=== PATIENT | male | born 1960 | race Caucasian/White ===

== ENCOUNTER 2019-10-30 18:04 | Observation (INO) | payer OTHER ==
[2019-10-30] MEDS ORDERED: IPRATROPIUM BROM 0.5MG/2.5ML ONE (18:33)
[2019-10-30] MEDS ORDERED: ALBUTEROL 2.5 MG/3 ML NEB SOL ONE (18:33)
[2019-10-30] MEDS ORDERED: METHYLPREDNISOLONE 125 MG INJ ONE (18:33)
--- NOTE | 2019-10-30 18:48 | RAD REPORT ---
EXAM DESCRIPTION: RAD - Chest Single View - 10/30/2019 6:43 pm CLINICAL HISTORY: COPD Chest pain. COMPARISON: No comparisons FINDINGS: Portable technique limits examination quality. Mild interstitial pulmonary edema is seen. The heart is moderately enlarged. No displaced fractures. IMPRESSION: Mild CHF.
[2019-10-30 18:49] LABS: Basophils % 0.2 % (0-1.3); Hematocrit 52.4 % (39.6-49.0); Lymphocytes % 6.1 % (15.3-44.8); MPV 8.1 fL (7.6-11.3); Protime INR 0.94; RBC Red Blood Cell Count 5.89 M/uL (4.33-5.43)
[2019-10-30 19:03] LABS: ALT/SGPT 37 U/L (12-78); AST/SGOT 17 U/L (15-37); Albumin 3.7 g/dL (3.4-5.0); Alkaline Phosphatase 69 U/L (45-117); BUN Blood Urea Nitrogen 17 mg/dL (7-18); Bicarbonate 27 mmol/L (21-32); Bilirubin Direct < 0.1 mg/dL (0-0.2); Bilirubin Total 0.3 mg/dL (0.2-1.0); CKMB Creatine Kinase MB 3.1 ng/mL (0.3-3.6); Creatine Phosphokinase 64 U/L (39-308); Glucose Level 106 mg/dL (74-106); Lipase 114 U/L (73-393); Magnesium 2.1 mg/dL (1.8-2.4); NT PRO-BNP 3020 pg/mL (<125); Potassium 4.2 mmol/L (3.5-5.1); Protein, Total 7.9 g/dL (6.4-8.2); Sodium Level 135 mmol/L (136-145); Troponin (Emerg Dept Use Only) 0.07 ng/mL (0.0-0.045)
[2019-10-30] MEDS ORDERED: FUROSEMIDE 40 MG/4 ML VIAL ONE (19:40)
[2019-10-30] MEDS ORDERED: ASPIRIN 81 MG CHEWABLE TABLET ONE (19:40)
--- NOTE | 2019-10-30 19:41 | ER ---
Nurse's Notes [facility] Name: Maurice Cid JR. Age: 59 yrs Sex: Male : 1960 Arrival Date: 10/30/2019 Time: 18:[address] Private MD: Diagnosis: Acute systolic (congestive) heart failure;Chronic obstructive pulmonary disease with (acute) exacerbation Presentation: 10/29 18:08 Chief complaint: Patient states: SOB and CP started today. COPD flare-up most likely, ll1 meds. at home didn't help. Coronavirus screen: Patient denies a cough. Patient reports shortness of breath or difficulty breathing. Patient denies measured and/or subjective temperature greater than 100.4F prior to today's visit. Patient denies travel on a cruise ship or to a country the [facility] currently lists as an affected area. Patient denies contact with known and/or suspected case of COVID-19. Ebola Screen: Patient denies travel to an Ebola-affected area in the 21 days before illness onset. Initial Sepsis Screen: Does the patient meet any 2 criteria? RR > 20 per min. HR > 90 bpm. Yes Does the patient have a suspected source of infection?. Risk Assessment: Do you want to hurt yourself or someone else? Patient reports no desire to harm self or others. Onset of symptoms was October 30, 2019. 18:08 Method Of Arrival: Wheelchair ll1 18:08 Acuity: EV 2 ll1 Triage Assessment: 19:10 Respiratory: Reports shortness of breath Onset: The symptoms/episode began/occurred rr5 today, Historical: - Allergies: 18:10 No Known Allergies; ll1 - PMHx: 18:10 COPD; asbestosis; Hypertension; ll1 - PSHx: 18:10 colon CA; ll1 - Immunization history:: Adult Immunizations up to date. - Social history:: Smoking status: Patient reports the use of cigarette tobacco products, smokes one-half pack cigarettes per day, Patient/guardian denies using alcohol, street drugs. Screenin:20 Abuse screen: Denies threats or abuse. Nutritional screening: No deficits noted. em Tuberculosis screening: No symptoms or risk factors identified. Fall Risk None identified. Assessment: 18:17 Reassessment: CODE SEPSIS CALLED. hb 18:20 General: Appears uncomfortable, Behavior is cooperative, restless. Pain: Complains of em pain in chest Pain currently is 3 out of 10 on a pain scale. Neuro: Level of Consciousness is awake, alert, obeys commands, Oriented to person, place, time, situation, Appropriate for age. Cardiovascular: Capillary refill is > 3 seconds Patient's skin is warm and dry. Rhythm is sinus tachycardia. Respiratory: Airway is patent Respiratory effort is labored, Respiratory pattern is regular, tachypnea Breath sounds are diminished bilaterally. Breath sounds with wheezes bilaterally. GI: Abdomen is obese. Derm: Skin is intact, Skin is clammy, Skin is pink, Skin temperature is warm. Musculoskeletal: Capillary refill < 3 seconds, Range of motion: intact in all extremities. 19:15 General: Appears uncomfortable, mild distress. Behavior is calm, cooperative, rr5 appropriate for age, awaiting for results.. Pain: Complains of pain in chest. Neuro: Level of Consciousness is awake, alert, obeys commands, Oriented to person, place, time, situation. 19:15 Cardiovascular: Capillary refill < 3 seconds Patient's skin is warm and dry. rr5 Respiratory: Airway is patent Respiratory effort is even, labored, Respiratory pattern is regular, tachypnea Breath sounds with wheezes bilaterally. GI: Abdomen is obese. : No signs and/or symptoms were reported regarding the genitourinary system. EENT: No signs and/or symptoms were reported regarding the EENT system. Derm: Skin is intact, is healthy with good turgor, Skin temperature is warm. Musculoskeletal: Capillary refill < 3 seconds, Range of motion: intact in all extremities. 19:45 Reassessment: Patient appears in no apparent distress at this time. Patient is alert, rr5 oriented x 3, equal unlabored respirations, skin warm/dry/pink. reassess by ED provider advised for admission and agreed for the plan of care. 20:30 Reassessment: Patient appears in no apparent distress at this time. Patient and/or rr5 family updated on plan of care and expected duration. Pain level reassessed. Patient is alert, oriented x 3, equal unlabored respirations, skin warm/dry/pink. awaiting for room assignment. 21:32 Reassessment: Patient appears in no apparent distress at this time. Patient is alert, rr5 oriented x 3, equal unlabored respirations, skin warm/dry/pink. transferred to room 413. awake alert no complaints made. Patient states feeling better. Patient states symptoms have improved. Vital Signs: 18:08 BP 156 / 117; Pulse 105; Resp 26; Pulse Ox 94% ; Pain 5/10; ll1 18:33 Temp 98.6(O); em 19:22 BP 160 / 85; Pulse 108; Resp 27; Temp 98.5; Pulse Ox 95% on R/A; rr5 19:39 Weight 147.42 kg; rr5 20:30 BP 155 / 101; Pulse 90; Resp 28; Pulse Ox 96% on R/A; rr5 21:30 BP 138 / 97; Pulse 95; Resp 25; Temp 98.7; Pulse Ox 95% on R/A; rr5 ED Course: 18:05 Patient arrived in ED. bp1 18:09 Triage completed. ll1 18:11 Arm band placed on Patient placed in an exam room, on a stretcher. ll1 18:15 Matteo Raza MD is Attending Physician. mh7 18:16 Contreras Mercado, RN is Primary Nurse. em 18:20 Patient has correct armband on for positive identification. Bed in low position. Call em light in reach. air sampling and monitoring on. Pulse ox on. NIBP on. 18:39 EKG done, by ED staff, reviewed by Matteo Raza MD. jb1 18:42 Chest Single View XRAY In Process Unspecified. EDMS 19:05 Inserted saline lock: 20 gauge in right antecubital area, using aseptic technique. rr5 ,using aseptic technique. received in AM shift Blood collected. 19:16 Notified ED physician of a critical lab result(s). D-dimer 625. lp1 19:37 Delia Banerjee MD is Hospitalizing Provider. mh7 20:01 CT Chest For PE Angio In Process Unspecified. EDMS 20:30 Patient moved back from CT. mw3 21:16 No provider procedures requiring assistance completed. Patient admitted, IV remains in rr5 place. intact, No redness/swelling at site. Administered Medications: 18:32 Drug: DuoNeb (3:1) (2.5 mg - 0.5 mg) 3 ml Route: Nebulizer; hb 19:35 Follow up: Response: No adverse reaction rr5 18:32 Drug: SOLU-Medrol 125 mg Route: IVP; Site: right antecubital; hb 19:35 Follow up: Response: No adverse reaction rr5 19:38 Drug: Lasix 40 mg Route: IVP; Site: right antecubital; rr5 20:30 Follow up: Response: No adverse reaction; Other; post lasix output 1100 ml rr5 19:38 Drug: Aspirin 325 mg Route: PO; rr5 20:30 Follow up: Response: No adverse reaction rr5 Intake: 21:33 PO: 0ml; Total: 0ml. rr5 Output: 20:20 Urine: 1100ml (Voided); Total: 1100ml. rr5 21:33 Urine: 1200ml (Voided); Total: 2300ml. rr5 Outcome: 19:38 Decision to Hospitalize by Provider. [facility] 21:16 Admitted to Tele accompanied by nurse, via stretcher, room 413, with chart, Report rr5 called to yariel 21:16 Condition: stable 21:16 Instructed on the need for admit. 21:35 Patient left the ED. rr5 Signatures: Dispatcher [employer] Lestre Goel jbContreras Sanchez, RN RN em Sangeeta Andersen RN RN lp1 Marjorie Patel RN RN Yanci Edwards mw3 Moses Granados RN RN rr5 Hali White, SUSAN RN ll1 Crystal Garcia Maurice, MD MD 7 Corrections: (The following items were deleted from the chart) 18:12 18:08 Acuity: EV 3 ll1 ll1
--- NOTE | 2019-10-30 19:41 | EDPHYS ---
Physician Documentation [facility] Name: Maurice Cid JR. Age: 59 yrs Sex: Male : 1960 Arrival Date: 10/30/2019 Time: 18:[address] Private MD: ED Physician Matteo Raza HPI: 10/29 19:00 This 59 yrs old Male presents to ER via Wheelchair with complaints of mh7 Shortness Of Breath. 19:01 The patient has shortness of breath at rest. Onset: The symptoms/episode began/occurred mh7 last night. Duration: The symptoms are continuous, and are unchanged since they started. The patient's shortness of breath is aggravated by coughing, is alleviated by nebulizer treatment. Associated signs and symptoms: Pertinent positives: non-productive cough, Pertinent negatives: chest pain, productive cough, diaphoresis, dizziness, fever, hemoptysis, loss of consciousness, nausea, numbness in extremities, visual changes, vomiting. Severity of symptoms: At their worst the symptoms were moderate last night, in the emergency department the symptoms have improved mildly. The patient has experienced similar episodes in the past, chronically, with the last episode occurring last month. Historical: - Allergies: 18:10 No Known Allergies; ll1 - PMHx: 18:10 COPD; asbestosis; Hypertension; ll1 - PSHx: 18:10 colon CA; ll1 - Immunization history:: Adult Immunizations up to date. - Social history:: Smoking status: Patient reports the use of cigarette tobacco products, smokes one-half pack cigarettes per day, Patient/guardian denies using alcohol, street drugs. ROS: 19:01 Constitutional: Negative for fever, chills, and weight loss, Eyes: Negative for injury, mh7 pain, redness, and discharge, ENT: Negative for injury, pain, and discharge, Neck: Negative for injury, pain, and swelling, Cardiovascular: Negative for chest pain, palpitations, and edema, Abdomen/GI: Negative for abdominal pain, nausea, vomiting, diarrhea, and constipation, Back: Negative for injury and pain, : Negative for injury, bleeding, discharge, and swelling, MS/Extremity: Negative for injury and deformity, Skin: Negative for injury, rash, and discoloration, Neuro: Negative for headache, weakness, numbness, tingling, and seizure, Psych: Negative for depression, anxiety, suicide ideation, homicidal ideation, and hallucinations, Allergy/Immunology: Negative for hives, rash, and allergies, Endocrine: Negative for neck swelling, polydipsia, polyuria, polyphagia, and marked weight changes, Hematologic/Lymphatic: Negative for swollen nodes, abnormal bleeding, and unusual bruising. Exam: 19:01 Constitutional: This is a well developed, well nourished patient who is awake, alert, mh7 and in no acute distress. Head/Face: Normocephalic, atraumatic. Eyes: Pupils equal round and reactive to light, extra-ocular motions intact. Lids and lashes normal. Conjunctiva and sclera are non-icteric and not injected. Cornea within normal limits. Periorbital areas with no swelling, redness, or edema. Neck: Trachea midline, no thyromegaly or masses palpated, and no cervical lymphadenopathy. Supple, full range of motion without nuchal rigidity, or vertebral point tenderness. No Meningismus. Chest/axilla: Normal chest wall appearance and motion. Nontender with no deformity. No lesions are appreciated. Cardiovascular: Regular rate and rhythm with a normal S1 and S2. No gallops, murmurs, or rubs. Normal PMI, no JVD. No pulse deficits. 19:01 Abdomen/GI: Soft, non-tender, with normal bowel sounds. No distension or tympany. No guarding or rebound. No evidence of tenderness throughout. Back: No spinal tenderness. No costovertebral tenderness. Full range of motion. Skin: Warm, dry with normal turgor. Normal color with no rashes, no lesions, and no evidence of cellulitis. MS/ Extremity: Pulses equal, no cyanosis. Neurovascular intact. Full, normal range of motion. Neuro: Awake and alert, GCS 15, oriented to person, place, time, and situation. Cranial nerves II-XII grossly intact. Motor strength 5/5 in all extremities. Sensory grossly intact. Cerebellar exam normal. Normal gait. Psych: Awake, alert, with orientation to person, place and time. Behavior, mood, and affect are within normal limits. 19:01 Respiratory: mild respiratory distress is noted, Respirations: prolonged exhalation, that is mild, Breath sounds: rhonchi, that are moderate, are scattered, wheezing: expiratory that is moderate, is heard diffusely. Vital Signs: 18:08 BP 156 / 117; Pulse 105; Resp 26; Pulse Ox 94% ; Pain 5/10; ll1 18:33 Temp 98.6(O); em 19:22 BP 160 / 85; Pulse 108; Resp 27; Temp 98.5; Pulse Ox 95% on R/A; rr5 19:39 Weight 147.42 kg; rr5 20:30 BP 155 / 101; Pulse 90; Resp 28; Pulse Ox 96% on R/A; rr5 21:30 BP 138 / 97; Pulse 95; Resp 25; Temp 98.7; Pulse Ox 95% on R/A; rr5 MDM: 18:20 Patient medically screened. [facility] 19:35 Differential diagnosis: Anemia asthma, CHF exacerbation, Chronic Obstructive Pulmonary 7 Disease Myocardial Infarction pneumonia, pulmonary edema, Pulmonary Embolism Unstable Angina. Data reviewed: vital signs, nurses notes, lab test result(s), cardiac enzymes, CBC, electrolytes, EKG, radiologic studies, plain films. Data interpreted: cardiac monitor: rate is 105 beats/min, rhythm is sinus tachycardia, Interpretation: tachycardia, Pulse oximetry: on room air is 94 %. Interpretation: hypoxia. 10/30 07:49 Counseling: I had a detailed discussion with the patient and/or guardian regarding: the [facility] historical points, exam findings, and any diagnostic results supporting the discharge/admit diagnosis, the presence of at least one elevated blood pressure reading (>120/80) during this emergency department visit, lab results, radiology results, the need for further work-up and treatment in the hospital. Medication response: albuterol nebulizer treatment(s) markedly relieved the patient's wheezing. Response to treatment: the patient's symptoms have markedly improved after treatment. 10/29 18:24 Order name: Blood Culture Adult (2) [facility] 10/29 18:24 Order name: BMP; Complete Time: 19:20 [facility] 10/29 18:24 Order name: CBC with Diff; Complete Time: 19:20 [facility] 10/29 18:24 Order name: Ckmb; Complete Time: 19:20 [facility] 10/29 18:24 Order name: CPK; Complete Time: 19:20 [facility] 10/29 18:24 Order name: D-Dimer; Complete Time: 19:20 [facility] 10/29 18:24 Order name: Hepatic Function; Complete Time: 19:20 7 10/29 18:24 Order name: Lipase; Complete Time: 19:20 7 10/29 18:24 Order name: Magnesium; Complete Time: 19:20 7 10/29 18:24 Order name: NT PRO-BNP; Complete Time: 19:20 7 10/29 18:24 Order name: PT-INR; Complete Time: 19:20 7 10/29 18:24 Order name: Ptt, Activated; Complete Time: 19:20 7 10/29 18:24 Order name: Troponin (emerg Dept Use Only); Complete Time: 19:20 7 10/29 18:24 Order name: Chest Single View XRAY; Complete Time: 19:20 7 10/29 19:23 Order name: CT Chest For PE Angio; Complete Time: 07:49 7 10/29 20:26 Order name: Echo with Doppler [facility] 10/29 20:26 Order name: CBC with Automated Diff EDMS 10/29 20:26 Order name: CBC with Automated Diff; Complete Time: 07:49 EDMS 10/29 20:26 Order name: Comprehensive Metabolic Panel EDMS 10/29 20:26 Order name: Comprehensive Metabolic Panel; Complete Time: 07:49 EDMS 10/29 20:26 Order name: Lipid Profile EDMS 10/29 20:26 Order name: Lipid Profile; Complete Time: 07:49 EDMS 10/29 20:26 Order name: Magnesium EDMS 10/29 20:26 Order name: Magnesium; Complete Time: 07:49 EDMS 10/29 20:26 Order name: NT PRO-BNP EDMS 10/29 20:26 Order name: NT PRO-BNP; Complete Time: 07:49 EDMS 10/29 20:26 Order name: Phosphorus EDMS 10/29 20:26 Order name: Phosphorus; Complete Time: 07:49 EDMS 10/29 20:45 Order name: CORONAVIRUS; Complete Time: 07:49 EDMS 10/29 18:24 Order name: EKG; Complete Time: 18:25 7 10/29 18:24 Order name: Cardiac monitoring; Complete Time: 18:34 7 10/29 18:24 Order name: EKG - Nurse/Tech; Complete Time: 18:35 7 10/29 18:24 Order name: IV Saline Lock; Complete Time: 18:34 7 10/29 18:24 Order name: Labs collected and sent; Complete Time: 18:34 7 10/29 18:24 Order name: O2 Per Protocol; Complete Time: 18:34 7 10/29 18:24 Order name: O2 Sat Monitoring; Complete Time: 18:34 [facility] 10/29 19:56 Order name: Droplet/Contact Precautions; Complete Time: 19:58 mw 10/29 20:26 Order name: CONS Physician Consult [facility]NY 10/29 20:26 Order name: Heart Healthy EDMS Administered Medications: 10/29 18:32 Drug: DuoNeb (3:1) (2.5 mg - 0.5 mg) 3 ml Route: Nebulizer; hb 19:35 Follow up: Response: No adverse reaction rr5 18:32 Drug: SOLU-Medrol 125 mg Route: IVP; Site: right antecubital; hb 19:35 Follow up: Response: No adverse reaction rr5 19:38 Drug: Lasix 40 mg Route: IVP; Site: right antecubital; rr5 20:30 Follow up: Response: No adverse reaction; Other; post lasix output 1100 ml rr5 19:38 Drug: Aspirin 325 mg Route: PO; rr5 20:30 Follow up: Response: No adverse reaction rr5 Disposition: 10/30/19 19:38 Hospitalization ordered by Delia Banerjee for Inpatient Admission. Preliminary diagnosis are Acute systolic (congestive) heart failure, Chronic obstructive pulmonary disease with (acute) exacerbation. - Bed requested for Telemetry/MedSurg (Inpatient). - Status is Inpatient Admission. rr5 - Condition is Stable. - Problem is new. - Symptoms have improved. Signatures: Dispatcher [employer] [facility] Suzy Muller RN RN Marjorie Patel RN RN Moses Granados RN RN rr5 Hali White RN RN ll1 Matteo Raza MD MD 7 Corrections: (The following items were deleted from the chart) 20:27 19:38 Hospitalization Ordered by Delia Banerjee MD for Inpatient Admission. Preliminary diagnosis is Acute systolic (congestive) heart failure; Chronic obstructive pulmonary disease with (acute) exacerbation. Bed requested for Telemetry/MedSurg (Inpatient). Status is Inpatient Admission. Condition is Stable. Problem is new. Symptoms have improved. mh7 21:35 20:27 10/30/2019 19:38 Hospitalization Ordered by Delia Banerjee MD for Inpatient rr5 Admission. Preliminary diagnosis is Acute systolic (congestive) heart failure; Chronic obstructive pulmonary disease with (acute) exacerbation. Bed requested for Telemetry/MedSurg (Inpatient). Status is Inpatient Admission. Condition is Stable. Problem is new. Symptoms have improved. mw
--- NOTE | 2019-10-30 20:16 | RAD REPORT ---
EXAM DESCRIPTION: CT - Chest For Pe Angio - 10/30/2019 8:00 pm CLINICAL HISTORY: Chest pain. SOB COMPARISON: Chest Single View dated 10/30/2019 TECHNIQUE: CT angiogram of the pulmonary arteries was performed with MIP. All CT scans are performed using dose optimization technique as appropriate and may include automated exposure control or mA/KV adjustment according to patient size. FINDINGS: No evidence of pulmonary thromboembolism. No acute aortic finding demonstrated. Minimal interstitial pulmonary edema suspected. Linear atelectasis is present in both lung bases. Mil d underlying COPD is suspected. No significant pericardial or pleural fluid. No concerning bony finding. Cholelithiasis. IMPRESSION: No evidence of pulmonary thromboembolism. Cholelithiasis.
[2019-10-30] MEDS ORDERED: ACETAMINOPHEN 500 MG TAB PO PRN (20:18)
[2019-10-30] MEDS ORDERED: ONDANSETRON 4 MG/2 ML VIAL IV PRN (20:18)
[2019-10-30] MEDS: POTASSIUM 25 MEQ EFFERV TAB PO SCH (21:00)
[2019-10-30] MEDS: METOPROLOL TAR 50 MG TAB PO SCH (22:36)
[2019-10-30 22:57] VITALS: BMI 43.3
[2019-10-31] MEDS: FUROSEMIDE 40 MG/4 ML VIAL IV SCH ×2 (01:45→08:53)
[2019-10-31 05:58] LABS: Absolute Lymphocytes (CBC) 0.7 K/uL (0.7-4.9); Basophils % 0.2 % (0-1.3); Hematocrit 51.7 % (39.6-49.0); Lymphocytes % 4.9 % (15.3-44.8); MPV 8.2 fL (7.6-11.3); RBC Red Blood Cell Count 5.89 M/uL (4.33-5.43)
[2019-10-31 06:26] LABS: Albumin 3.5 g/dL (3.4-5.0); Bilirubin Total 0.5 mg/dL (0.2-1.0); Magnesium 2.2 mg/dL (1.8-2.4); Phosphorus 3.7 mg/dL (2.5-4.9); Potassium 4.4 mmol/L (3.5-5.1); Protein, Total 7.7 g/dL (6.4-8.2)
[2019-10-31 07:09] LABS: Platelet Estimate ADEQ; Urine White Blood Cell Casts OK
[2019-10-31 07:10] LABS: Blood Morphology Comment NOT SEEN (NOT SEEN)
[2019-10-31] MEDS: METOPROLOL TAR 50 MG TAB PO SCH (08:51)
[2019-10-31] MEDS: POTASSIUM 25 MEQ EFFERV TAB PO SCH (08:52)
[2019-10-31] MEDS ORDERED: ASPIRIN EC 81 MG TAB PO SCH (09:00)
[2019-10-31] MEDS ORDERED: CLOPIDOGREL 75 MG TABLET PO SCH (09:00)
[2019-10-31] MEDS ORDERED: ENOXAPARIN 40 MG/0.4 ML SQ SCH (09:00)
--- NOTE | 2019-10-31 09:27 | P.HP ---
Certification for Inpatient Patient admitted to: Inpatient With expected LOS: >2 Midnights Patient will require the following post-hospital care: None Practitioner: I am a practitioner with admitting privileges, knowledge of patient current condition, hospital course, and medical plan of care. Services: Services provided to patient in accordance with Admission requirements found in Title 42 Section 412.3 of the Code of Federal Regulations Patient History Date of Service: 10/30/19 Reason for admission: Congestive heart failure History of Present Illness: Patient is a 59-year-old gentleman who came to the hospital with shortness of breath. Patient was found have congestive heart failure exacerbation. Patient has significant pulmonary edema and is morbidly obese. Patient was given diuresis and symptoms are improving. Will continue with gentle diuresing. Patient does not have echocardiogram on file. Will get Cardiology consultation. Patient will need further cardiac testing at this time. Continue with cardiac medications as well. Patient also needs to enter into a bariatric program and start weight loss. Will get additional lab testing including BNP levels. Strict blood pressure control. Allergies No Known Allergies Allergy (Unverified 10/30/19 20:59) Home Medications: Albuterol Sulfate [Proair Respiclick] 1 puff IH Q6HP PRN 10/30/19 Allopurinol 300 mg PO BEDTIME 10/30/19 Amlodipine [Norvasc] 10 mg PO DAILY 10/30/19 Budesonide/Formoterol Fumarate [Symbicort 160-4.5 Mcg Inhaler] 2 puff IH DAILY 10/30/19 Cholecalciferol (Vitamin D3) [Vitamin D 400 IU TAB] 400 unit PO DAILY 10/30/19 Naproxen 250 mg PO BID 10/30/19 Tamsulosin [Flomax] 0.4 mg PO BEDTIME 10/30/19 Tiotropium [Spiriva Handihaler] 18 mcg IH DAILY 10/30/19 - Past Medical/Surgical History Has patient received pneumonia vaccine in the past: Yes Diabetic: No -: hypertension -: COPD -: Asbestos -: Colon CA -: Colon resection -: colostomy reversal -: bilateral knee surgery -: right ankle sx - Family History Father Family History: Reviewed- Non-Contributory - Social History Smoking Status: Heavy Tobacco smoker (>10 cigarettes/day) Alcohol use: No CD- Drugs: No Caffeine use: Yes Place of Residence: Home Review of Systems 10-point ROS is otherwise unremarkable Physical Examination - Vital Signs Temperature: 96.0 F Blood Pressure: 137/77 Pulse: 66 Respirations: 20 Pulse Ox (%): 94 - Physical Exam General: Alert, In no apparent distress, Oriented x3 HEENT: Atraumatic, PERRLA, Mucous membr. moist/pink, EOMI, Sclerae nonicteric Neck: Supple, 2+ carotid pulse no bruit, No LAD, Without JVD or thyroid abnormality Respiratory: Diminished, Crackles/rales Cardiovascular: Regular rate/rhythm, Normal S1 S2, Systolic murmur Gastrointestinal: Normal bowel sounds, Soft and benign, Non-distended, No tenderness Musculoskeletal: No clubbing, No tenderness, Swelling Integumentary: No rashes Neurological: Normal gait, Normal speech, Normal strength at 5/5 x4 extr, Normal tone, Sensation intact, Cranial nerves 3-12 intact, Normal affect Lymphatics: No axilla or inguinal lymphadenopathy - Studies Laboratory Data (last 24 hrs) 10/30/19 18:30: PT 11.1, INR 0.94, APTT 30.5 10/30/19 18:30: WBC 16.6 H, Hgb 17.1, Hct 52.4 H, Plt Count 296 10/30/19 18:30: Sodium 135 L, Potassium 4.2, BUN 17, Creatinine 1.02, Glucose 106, Magnesium 2.1, Total Bilirubin 0.3, AST 17, ALT 37, Alkaline Phosphatase 69, Lipase 114 Microbiology Data (last 24 hrs): 10/30/19 20:14 Nasopharnyx Coronavirus COVID-19 PCR - Final Assessment & Plan - Problems (Diagnosis) (1) Acute exacerbation of CHF (congestive heart failure) Current Visit: Yes Status: Acute (2) Lower extremity edema Current Visit: Yes Status: Acute (3) Dyspnea on exertion Current Visit: Yes Status: Acute (4) Cholelithiasis Current Visit: Yes Status: Acute (5) Leukocytosis Current Visit: Yes Status: Acute - Plan 1. Echocardiogram 2. Continue with cardiac medications including diuresing 3. We will start patient on a Beta sushant in 24-48 hr 4. Cardiology consultation 5. Aggressive diuresis 6. Strict I's and O's 7. Repeat CXR 8. Daily weights 9. Monitor white blood cell count closely 10. Education regarding diet and treatment of congestive heart failure Discharge Plan: Home Plan to discharge in: Greater than 2 days - Advance Directives Does patient have a Living Will: No Does patient have a Durable POA for Healthcare: No - Code Status/Comfort Care Code Status Assessed: Yes Code Status: Full Code Critical Care: No Time Spent Managing PTS Care (In Minutes): 45
--- NOTE | 2019-10-31 09:29 | P.PN ---
Subjective Date of Service: 10/31/19 Patient still with shortness of breath. Patient with pulmonary edema. Repeat chest x-ray pending. Still not at baseline according to patient. Review of Systems 10-point ROS is otherwise unremarkable Physical Examination - Vital Signs Temperature: 96.0 F Blood Pressure: 137/77 Pulse: 66 Respirations: 20 Pulse Ox (%): 94 - Physical Exam General: Alert, In no apparent distress, Oriented x3 Respiratory: Clear to auscultation bilaterally, Normal air movement Cardiovascular: Regular rate/rhythm, Normal S1 S2, No murmurs Gastrointestinal: Normal bowel sounds, Soft and benign, Non-distended, No tender ness Musculoskeletal: No clubbing, Swelling - Studies Laboratory Data (last 24 hrs) 10/30/19 18:30: PT 11.1, INR 0.94, APTT 30.5 10/30/19 18:30: WBC 16.6 H, Hgb 17.1, Hct 52.4 H, Plt Count 296 10/30/19 18:30: Sodium 135 L, Potassium 4.2, BUN 17, Creatinine 1.02, Glucose 106, Magnesium 2.1, Total Bilirubin 0.3, AST 17, ALT 37, Alkaline Phosphatase 69, Lipase 114 Microbiology Data (last 24 hrs): 10/30/19 20:14 Nasopharnyx Coronavirus COVID-19 PCR - Final Medications List Reviewed: Yes Assessment & Plan - Problems (Diagnosis) (1) Acute exacerbation of CHF (congestive heart failure) Current Visit: Yes Status: Acute (2) Lower extremity edema Current Visit: Yes Status: Acute (3) Dyspnea on exertion Current Visit: Yes Status: Acute (4) Cholelithiasis Current Visit: Yes Status: Acute (5) Leukocytosis Current Visit: Yes Status: Acute - Plan 1. Echocardiogram 2. Continue with cardiac medications including diuresing 3. We will start patient on a Beta sushant in 24-48 hr 4. Cardiology consultation 5. Aggressive diuresis 6. Strict I's and O's 7. Repeat CXR 8. Daily weights 9. Monitor white blood cell count closely 10. Education regarding diet and treatment of congestive heart failure Discharge Plan: Home Plan to discharge in: Greater than 2 days - Advance Directives Does patient have a Living Will: No Does patient have a Durable POA for Healthcare: No - Code Status/Comfort Care Code Status: Full Code
[2019-10-31 09:33] VITALS: O2SAT 94
[2019-10-31 12:32] VITALS: BP 120/80; TEMP 97.7
--- NOTE | 2019-10-31 13:56 | CON ---
Date of Consultation: 10/31/2019 Reason For Consultation: New onset congestive heart failure. History Of Present Illness: Mr. Cid is a 59-year-old white male with history of COPD, hypertension , benign prostatic hypertrophy, gout, and asbestosis. He also had a history of colon cancer that was cured in 2008. He came in with few days of PND, orthopnea, pedal edema, was found to have congestiv e heart failure on chest x-ray. He had an elevated D-dimer with a negative CT angiogram. His EKG wa s nonspecific. Denied any fever or chills or cough. Denied any chest pain, unexplained nausea and v omiting, or diaphoresis. Allergies: NONE. Review of Systems: Negative. Social History: Negative. Family History: Noncontributory. Past Medical History: As stated earlier. Medications: At home include Norvasc, inhalers, Flomax, Naprosyn, and allopurinol. Physical Examination: General: Mr. Cid' weight is 128 pounds. HEENT: Negative. Vital signs: Stable. His blood pressure was 135/78. He was in sinus rhythm. Chest: Revealed rales both bases. Cardiac: Revealed a regular rhythm and rate with a positive S4 gallops. No murmurs or rubs. Abdomen: Obese, but benign. EXTREMITIES: Revealed no clubbing, cyanosis. Actually does not have much pedal edema. Skin: Dry and intact. Neurologic: He was nonfocal. Diagnostic Data: EKG showed LVH. D-dimer showed it was [address] angiogram. He had a chest x-ray showed CHF. Troponin is 0.07. BNP is 4460. Impression And Plan: New onset congestive heart failure, most likely acute diastolic congestive hear t failure. Echocardiogram has been ordered. Patient really needs an extensive cardiac workup includ ing a Lexiscan and a possible catheterization with new onset congestive heart failure and a positive troponin, but I will make an arrangement for that as an outpatient. He [place] a [place] and may want to follow [facility] with [facility] [place] [facility]. He needs to be on his home medication including Norvasc, inhaler, Flomax, and allopurinol. I think he should avoid Naprosyn. I think we should put him on a low-dose beta-sushant and add p.o. Lasix when he goes home. The case was discussed with Dr. Prezas. His blo od pressure is fairly well controlled right now. His chronic obstructive pulmonary disease _ is stable. He has benign prostatic hypertrophy, gout, and history of colon cancer that has been cu red. RUKHSANA/GAVINO Voice ID: [id number] Report ID: [id number]
--- NOTE | 2019-10-31 14:19 | P.DS ---
Admission Date: 10/30/19 Discharge Date: 10/31/19 Primary Care Provider: [facility] Disposition: ROUTINE DISCHARGE Discharge Condition: GOOD Reason for Admission: Congestive heart failure Consultations: Cardiology-Dr. Spence Procedures: CT Scan: FINDINGS: No evidence of pulmonary thromboembolism. No acute aortic finding demonstrated. Minimal interstitial pulmonary edema suspected. Linear atelectasis is present in both lung bases. Mild underlying COPD is suspected. No significant pericardial or pleural fluid. No concerning bony finding. Cholelithiasis. IMPRESSION: No evidence of pulmonary thromboembolism. Cholelithiasis. Medical problem list: Shortness of breast secondary to acute on chronic diastolic CHF complicated with COPD exacerbation BPH Arthritis Suspect obstructive sleep apnea Obesity, BMI 43 Brief History of Present Illness: Date of Consultation: 10/31/2019 Reason For Consultation: New onset congestive heart failure. History Of Present Illness: Mr. Cid is a 59-year-old white male with history of COPD, hypertension, benign prostatic hypertrophy, gout, and asbestosis. He also had a history of colon cancer that was cured in 2008. He came in with few days of PND, orthopnea, pedal edema, was found to have congestive heart failure on chest x-ray. He had an elevated D-dimer with a negative CT angiogram. His EKG was nonspecific. Denied any fever or chills or cough. Denied any chest pain, unexplained nausea and vomiting, or diaphoresis. Hospital Course: Patient presented with shortness of breath secondary to acute on chronic diastolic CHF. Patient seen by Cardiology. No cardiac intervention was required at this time. Patient did well during the course of his stay. Patient received IV Lasix. Patient was taught on 1500 cc per day fluid restriction. CT chest showed no evidence of pulmonary embolism or pneumonia. Cardiology recommended no further intervention in the hospital stay. At discharge patient will continue with a 1500 cc per day fluid restriction and low-salt diet. He is to monitor his weight daily. If his weight increases by more than 5 lb he is to contact his PCP or cardiology for further recommendation. At discharge patient will continue with Lasix 40 mg 1 pill twice daily. Recommend follow up with cardiology in 1-2 weeks to follow up this hospitalization. Patient will require further cardiac evaluation including echocardiogram and cardiac stress test or possible heart catheterization. This will be arranged as an outpatient. Shortness of breath also likely related to COPD exacerbation. CT scan revealed COPD changes. Patient does take medication. At discharge patient will continue with his current medications of Symbicort 2 puffs twice daily and Spiriva 1 puff daily. Patient will also continue with albuterol 2 puffs 3 times a day as ne eded for shortness of breath. The patient will continue with prednisone 10 mg 1 pill twice daily for 5 days then 1 pill once daily for 5 days. Recommendation is for the patient to follow up with pulmonology as an outpatient to further monitor and address. Patient with BPH. At discharge the patient will continue with Flomax 0.4 mg daily. Patient with arthritis and gout. Patient will continue with allopurinol 300 mg daily. Will recommend to discontinue naproxen as this may interfere with hypertension/CHF. The patient may take Tylenol as needed for pain. Recommend no further use of nonsteroidal anti-inflammatories. Suspect obstructive sleep apnea. Recommend follow up with pulmonology to further evaluate and address. Vital Signs/Physical Exam: Temp Pulse Resp BP Pulse Ox 97.7 F 67 19 120/80 94 10/31/19 12:00 10/31/19 12:00 10/31/19 12:00 10/31/19 12:00 10/31/19 12:00 General: Alert, In no apparent distress, Oriented x3, Cooperative HEENT: Atraumatic Neck: Supple Respiratory: Clear to auscultation bilaterally, Normal air movement Cardiovascular: Normal pulses, Regular rate/rhythm Gastrointestinal: Normal bowel sounds, Soft and benign, Non-distended Musculoskeletal: No erythema, No tenderness, No warmth Integumentary: No erythema, No warmth, No cyanosis, Tenderness/swelling (Swelling to the lower extremities improved) Neurological: Normal speech, Normal strength at 5/5 x4 extr, Normal tone, Normal affect Laboratory Data at Discharge: WBC 14.7 K/uL (4.3-10.9) H 10/31/19 05:40 Hgb 17.1 g/dL (13.6-17.9) 10/31/19 05:40 Hct 51.7 % (39.6-49.0) H 10/31/19 05:40 Plt Count 316 K/uL (152-406) 10/31/19 05:40 PT 11.1 SECONDS (9.5-12.5) 10/30/19 18:30 INR 0.94 10/30/19 18:30 APTT 30.5 SECONDS (24.3-36.9) 10/30/19 18:30 Sodium 136 mmol/L (136-145) 10/31/19 05:40 Potassium 4.4 mmol/L (3.5-5.1) 10/31/19 05:40 BUN 19 mg/dL (7-18) H 10/31/19 05:40 Creatinine 1.04 mg/dL (0.55-1.3) 10/31/19 05:40 Glucose 118 mg/dL (74-106) H 10/31/19 05:40 Phosphorus 3.7 mg/dL (2.5-4.9) 10/31/19 05:40 Magnesium 2.2 mg/dL (1.8-2.4) 10/31/19 05:40 Total Bilirubin 0.5 mg/dL (0.2-1.0) 10/31/19 05:40 AST 16 U/L (15-37) 10/31/19 05:40 ALT 38 U/L (12-78) 10/31/19 05:40 Alkaline Phosphatase 46 U/L (45-117) 10/31/19 05:40 Triglycerides 92 mg/dL (<150) 10/31/19 05:40 Cholesterol 144 mg/dL (<200) 10/31/19 05:40 HDL Cholesterol 72 mg/dL (40-60) H 10/31/19 05:40 Cholesterol/HDL Ratio 2.00 10/31/19 05:40 Lipase 114 U/L (73-393) 10/30/19 18:30 Home Medications: Albuterol Sulfate [Proair Respiclick] 1 puff IH Q6HP PRN 10/30/19 Allopurinol 300 mg PO BEDTIME 10/30/19 Amlodipine [Norvasc*] 10 mg PO DAILY 10/30/19 Budesonide/Formoterol Fumarate [Symbicort 160-4.5 Mcg Inhaler] 2 puff IH DAILY 10/30/19 Cholecalciferol (Vitamin D3) [Vitamin D 400 IU TAB*] 400 unit PO DAILY 10/30/19 Tamsulosin [Flomax*] 0.4 mg PO BEDTIME 10/30/19 Tiotropium [Spiriva Handihaler*] 18 mcg IH DAILY 10/30/19 Furosemide [Lasix] 40 mg PO BIDL #60 tab 10/31/19 Metoprolol Tartrate [Lopressor*] 25 mg PO BID #60 tab 10/31/19 predniSONE [Deltasone*] 10 mg PO SEECOM #15 tab 10/31/19 New Medications: predniSONE [Deltasone*] 10 mg PO SEECOM #15 tab Furosemide [Lasix] 40 mg PO BIDL #60 tab Metoprolol Tartrate [Lopressor*] 25 mg PO BID #60 tab Patient Discharge Instructions: 1. Recommend follow up at the [facility] to follow up this hospitalization. 2. Patient presented with shortness of breath likely acute on chronic diastolic CHF. Patient seen by Cardiology. No cardiac intervention was required at this time. At discharge patient will continue with a 1500 cc per day fluid restriction and low-salt diet. He is to monitor his weight daily. If his weight increases by more than 5 lb he is to contact his PCP or cardiology for further recommendation. At discharge patient will cont inue with Lasix 40 mg 1 pill twice daily. Recommend follow up with cardiology in 1-2 weeks to follow up this hospitalization. Patient will require further cardiac evaluation including echocardiogram and cardiac stress test or possible heart catheterization. This will be arranged as an outpatient. 3. Patient likely with COPD exacerbation. At discharge patient will continue with his current medications of Symbicort 2 puffs twice daily and Spiriva 1 puff daily. Patient will also continue with albuterol 2 puffs 3 times a day as needed for shortness of breath. The patient will continue with prednisone 10 mg 1 pill twice daily for 5 days then 1 pill once daily for 5 days. Recommendation is for the patient to follow up with pulmonology as an outpatient to further monitor and address. 4. Patient with BPH. At discharge the patient will continue with Flomax 0.4 mg daily. 5. Patient with arthritis and gout. Patient will continue with allopurinol 300 mg daily. Will recommend to discontinue naproxen as this may interfere with hypertension/CHF. The patient may take Tylenol as needed for pain. Recommend no further use of nonsteroidal anti-inflammatories Diet: AHA Activity: Ad estephania Followup: Diony Spence MD [ACTIVE - CAN ADMIT] - 1-2 Weeks (auto tester- call to schedule an appointment ) Time spent managing pt's care (in minutes): 55
--- NOTE | 2019-11-01 08:56 | EKG ---
Test Date: 2019-10-30 Test Time: 18:36:53 [employer]: [place] MEASUREMENT RESULTS: Intervals: Rate: 107 CT: 146 QRSD: 94 QT: 378 QTc: 504 [place]: P: 58 CT: 146 QRS: 39 T: 77 INTERPRETIVE STATEMENTS: Sinus tachycardia with frequent premature ventricular complexes Otherwise normal ECG No previous ECG available for comparison Electronically Signed On 11-01-19 08:54:12 CDT by Diony Spence
== END 2019-10-31 15:42 | disposition home or self-care (01) ==
LOC: ER 18:04 → INTOOBSV 20:18 → 4TH 20:18
PROVIDERS: ADMIT Hospitalist; ATTEND Hospitalist
DX: I50.33 Acute on chronic diastolic (congestive) heart failure (principal); J44.1 Chronic obstructive pulmonary disease with (acute) exacerbation; G47.33 Obstructive sleep apnea (adult) (pediatric); I10 Essential (primary) hypertension; K80.20 Calculus of gallbladder without cholecystitis without obstruction; N40.0 Benign prostatic hyperplasia without lower urinary tract symptoms; M10.9 Gout, unspecified; M19.90 Unspecified osteoarthritis, unspecified site; E66.9 Obesity, unspecified; Z68.41 Body mass index [BMI] 40.0-44.9, adult; Z85.038 Personal history of other malignant neoplasm of large intestine; Z20.828 Contact with and (suspected) exposure to other viral communicable diseases
CPT/HCPCS: 93005; 87040 ×2; 85025 ×2; 80048; 36415 ×2; 83735 ×2; 82550; 84100; 85610; 80061; 85379; 80076; 85730; 84484; 82553; 83690; 80053; 83880 ×2; 71275; 71045; 94640; 96375; 96374; 99285; U0002; Q9967; J1940 ×3; J1650; J2930; G0378 ×3

== ENCOUNTER 2022-07-05 17:31 | Inpatient (IN) | payer OTHER ==
[2022-07-05] MEDS ORDERED: LEVALBUTEROL 0.63 MG/3 ML NEB ONE (17:49)
[2022-07-05] MEDS ORDERED: FUROSEMIDE 40 MG/4 ML VIAL ONE (17:49)
[2022-07-05] MEDS ORDERED: dilTIAZem HCL 25 MG/5 ML VIAL IV ONE (17:49)
[2022-07-05 17:58] LABS: Arterial Blood Carboxyhemoglob 0.4 % (0-1.5); Blood Gas Oxyhemoglobin 66.1 % (94-97); Blood O2 Saturation 67.7 % (92-98.5)
[2022-07-05 18:03] LABS: Absolute Lymphocytes (CBC) 2.1 K/uL (0.7-4.9); Hematocrit 36.4 % (39.6-49.0); Lymphocytes % 10.5 % (15.3-44.8); MCV 84.2 fL (80-100); MPV 7.4 fL (7.6-11.3); RBC Red Blood Cell Count 4.32 M/uL (4.33-5.43)
[2022-07-05 19:10] LABS: Albumin 3.7 g/dL (3.4-5.0); Bilirubin Total 0.3 mg/dL (0.2-1.0); Magnesium 2.4 mg/dL (1.6-2.4); Potassium 4.4 mmol/L (3.5-5.1); Protein, Total 8.5 g/dL (6.4-8.2); Thyroid Stimulating Hormone 1.63 uIU/mL (0.358-3.740); Troponin High Sensitivity 27.6 pg/mL (<58.9)
--- NOTE | 2022-07-05 19:21 | EDPHYS ---
Physician Documentation [facility] Name: Maurice Cid JR. Age: 62 yrs Sex: Male : 1960 Arrival Date: 07/05/2022 Time: 17:41 Bed 4 Private MD: ED Physician Gregor Vanessa HPI: 07/05 18:00 This 62 yrs old Male presents to ER via Unassigned with complaints of Dyspnea. rt 18:00 The patient has shortness of breath at rest. Onset: The symptoms/episode began/occurred rt today. Duration: The symptoms are continuous. The patient's shortness of breath is aggravated by light activity, is alleviated by CPAP. Associated signs and symptoms: Pertinent positives:. Severity of symptoms: At their worst the symptoms were severe. Patient with history of CHF, COPD presents to the ED with respiratory distress, reportedly starting this morning. Patient's oxygen saturations were about 80% on 4 L of oxygen which she wears chronically. Was paced on CPAP. He was reported lower extremity edema, denies other acute complaints at this time. Symptoms are severe in severity, no other aggravating alleviating factors. Historical: - Allergies: 17:42 No Known Allergies; kc6 - PMHx: 17:42 asbestosis; COPD; Hypertension; Congestive heart failure; kc6 - Immunization history:: Client reports receiving the 2nd dose of the Covid vaccine, Flu vaccine is up to date. - Social history:: Smoking status: Patient/guardian denies using tobacco. - Family history:: not pertinent. ROS: 18:00 Constitutional: Negative for fever, chills, and weight loss, Abdomen/GI: Negative for rt abdominal pain, nausea, vomiting, diarrhea, and constipation, MS/Extremity: Negative for injury and deformity, Skin: Negative for injury, rash, and discoloration, Neuro: Negative for headache, weakness, numbness, tingling, and seizure, Psych: Negative for depression, anxiety, suicide ideation, homicidal ideation, and hallucinations. 18:00 Cardiovascular: Positive for chest pain, edema. 18:00 Respiratory: Positive for cough, shortness of breath. Exam: 18:00 Constitutional: In acute distress, obese Head/Face: Normocephalic, atraumatic. Eyes: rt Pupils equal round and reactive to light, extra-ocular motions intact. Lids and lashes normal. Conjunctiva and sclera are non-icteric and not injected. Cornea within normal limits. Periorbital areas with no swelling, redness, or edema. Chest/axilla: Normal chest wall appearance and motion. Nontender with no deformity. No lesions are appreciated. Abdomen/GI: Soft, non-tender, with normal bowel sounds. No distension or tympany. No guarding or rebound. No evidence of tenderness throughout. Skin: Warm, dry with normal turgor. Normal color with no rashes, no lesions, and no evidence of cellulitis. Neuro: Awake and alert, GCS 15, oriented to person, place, time, and situation. Cranial nerves II-XII grossly intact. Motor strength 5/5 in all extremities. Sensory grossly intact. Cerebellar exam normal. Normal gait. Psych: Awake, alert, with orientation to person, place and time. Behavior, mood, and affect are within normal limits. 18:00 Cardiovascular: Tachycardic, irregularly irregular rhythm, heart sounds normal. 18:00 ECG was reviewed by the Attending Physician. 18:00 Respiratory: Bibasilar crackles, moderate respiratory distress. 18:00 Musculoskeletal/extremity: 3+ lower extremity edema bilaterally, equal, no cellulitis. Vital Signs: 17:45 BP 145 / 86; Pulse 135; Resp 37 S; Pulse Ox 98% on CPAP; Weight 170.1 kg (R); Height 6 kc6 ft. 0 in. (182.88 cm) (R); Pain 4/10; 18:13 BP 115 / 79; Pulse 113; Resp 22 S; Pulse Ox 97% on BiPAP; kc6 18:37 BP 113 / 75; Pulse 98; Resp 19 S; Pulse Ox 100% on BiPAP; kc6 19:00 BP 138 / 97; Pulse 98; Resp 18; Pulse Ox 100% ; vc1 20:14 Temp 97.5(TE); jb4 20:30 BP 144 / 86; Pulse 96; Resp 20; Pulse Ox 100% on 40% BiPAP; jb4 22:17 BP 121 / 82; Pulse 101; Resp 19; Pulse Ox 97% on 4 lpm NC; jb4 17:45 Body Mass Index 50.86 (170.10 kg, 182.88 cm) [facility] MDM: 17:43 Patient medically screened. rt 19:20 Differential diagnosis: A. fib, pneumonia, pneumothorax, CHF, COPD. Data reviewed: rt vital signs, nurses notes, old medical records, lab test result(s), EKG. Consideration of Admission/Observation Patient was admitted/placed on observation. Management of patient was discussed with the following: Hospitalist: Agrees to admit. I considered the following discharge prescriptions or medication management in the emergency department Medications were administered in the Emergency Department. See MAR. Historians other than the Patient: EMS: . Care significantly affected by the following chronic conditions: Congestive Heart Failure, Chronic Obstructive Pulmonary Disease, Obesity. Response to treatment: the patient's symptoms have markedly improved after treatment. 21:14 ED course: Patient meets severe sepsis at this time. CXR shows possible PNA. WBC >12k, ms3 HR >90, RR >20. Lactic acid and blood cultures ordered. Will give Rocephin and azithromycin.. 07/05 17:42 Order name: CBC with Diff; Complete Time: 18:30 rt 07/05 17:42 Order name: CMP; Complete Time: 19:16 rt 07/05 17:42 Order name: Troponin High Sensitivity; Complete Time: 19:16 rt 07/05 17:42 Order name: BNP; Complete Time: 19:16 rt 07/05 17:42 Order name: Magnesium; Complete Time: 19:16 rt 07/05 17:42 Order name: TSH; Complete Time: 19:16 rt 07/05 17:42 Order name: BIPAP rt 07/05 17:42 Order name: ABG; Complete Time: 18:32 rt 07/05 18:25 Order name: COVID-19/FLU A+B; Complete Time: 20:25 rt 07/05 21:05 Order name: Lactate w/ 2H reflex if indic. sb4 07/05 21:05 Order name: Blood Culture Adult (2) sb4 07/05 21:05 Order name: Procalcitonin sb4 07/05 21:51 Order name: Lactate w/ 2H reflex if indic. EDMS 07/05 22:01 Order name: Procalcitonin EDMS 07/05 19:17 Order name: Chest Single View XRAY; Complete Time: 19:59 sb4 07/05 20:00 Order name: CT Chest For PE Angio sb4 07/05 20:04 Order name: Chest For Pe Angio; Complete Time: 21:15 EDMS EC:00 Rate is 153 beats/min. Rhythm is irregularly irregular, A fib with Occasional PVCs, rt Rate related ST and T wave changes. QRS interval is normal. QT interval is normal. Interpreted by me. Administered Medications: 17:50 Drug: Cardizem (diltiazem) 10 mg Route: IVP; Site: left antecubital; kc6 17:50 Drug: Xopenex (levalbuterol) (3) 0.63 mg Route: Inhalation; kc6 17:53 Drug: Lasix (furosemide) 40 mg Route: IVP; Site: left antecubital; kc6 20:51 Drug: Lovenox (enoxaparin) 120 mg Route: Sub-Q; Site: right lower abdomen; jb4 22:10 Drug: Rocephin (cefTRIAXone) 1 grams Route: IV; Rate: calculated rate; Site: left jb4 antecubital; 22:10 Drug: AZITHromycin 500 mg Route: IVPB; Infused Over: 1 hrs; Site: left antecubital; jb4 Disposition: 19:20 Critical Care:. rt Disposition Summary: 07/05/22 19:20 Hospitalization Ordered Hospitalization Status: Inpatient Admission rt Provider: Delia Banerjee rt Location: Telemetry/MedSurg (Inpatient) rt Condition: Serious rt Problem: new rt Symptoms: have improved rt Bed/Room Type: Standard rt Room Assignment: 405(07/05/22 20:31) mw Diagnosis - Unspecified atrial fibrillation rt - Acute respiratory failure with hypercapnia rt Forms: - Medication Reconciliation Form rt - SBAR form rt Critical care time excluding procedures: 19:20 Critical care time: Bedside Care: 30 minutes, Consultation: 10 minutes. Total time: 40 rt minutes Signatures: Dispatcher [employer] EDMS Suzy Muller RN RN mw Jose Roberto Mccartney RN RN jb4 Jasper Parra DO DO ms3 Michelle Colmenares RN RN kc6 Anabel Lock PA-C PA-C sb4 [place], Ryan, MD MD rt Corrections: (The following items were deleted from the chart) 20:31 19:20 rt mw
--- NOTE | 2022-07-05 19:21 | ER ---
Nurse's Notes [facility] Name: Maurice Cid JR. Age: 62 yrs Sex: Male : 1960 Arrival Date: 07/05/2022 Time: 17:41 Bed 4 Private MD: Diagnosis: Unspecified atrial fibrillation;Acute respiratory failure with hypercapnia Presentation: 07/05 17:45 Chief complaint: EMS states: SOB all day. SPO2 in the low 80's on 4L via nasal canula. kc6 90's with CPAP. 17:45 Coronavirus screen: Vaccine status: Patient reports receiving the 2nd dose of the covid kc6 vaccine. At this time, the client does not indicate any symptoms associated with coronavirus-19. Ebola Screen: No symptoms or risks identified at this time. Initial Sepsis Screen: Does the patient meet any 2 criteria? No. Patient's initial sepsis screen is negative. Does the patient have a suspected source of infection? No. Patient's initial sepsis screen is negative. Risk Assessment: Do you want to hurt yourself or someone else? Patient reports no desire to harm self or others. Onset of symptoms. 17:45 Method Of Arrival: EMS: [facility] kc6 17:45 Acuity: EV 2 kc6 Triage Assessment: 17:45 General: Appears distressed, uncomfortable, obese, Behavior is cooperative, appropriate kc6 for age, restless. Pain: Complains of pain in chest. EENT: No signs and/or symptoms were reported regarding the EENT system. Neuro: Mitchell Agitation-Sedation Scale (RASS): +1 Restless Level of Consciousness is awake, alert, obeys commands, Oriented to person, place, time, situation, Appropriate for age. Cardiovascular: Heart tones S1 S2 present Capillary refill < 3 seconds Rhythm is atrial fibrillation with rapid ventricular response. Respiratory: Airway is patent Trachea midline Respiratory effort is even, labored, using tripod position, Respiratory pattern is symmetrical, tachypnea. GI: No signs and/or symptoms were reported involving the gastrointestinal system. : No signs and/or symptoms were reported regarding the genitourinary system. Derm: No signs and/or symptoms reported regarding the dermatologic system. Skin is intact, Skin is pink, warm \T\ dry. Musculoskeletal: No signs and/or symptoms reported regarding the musculoskeletal system. Circulation, motion, and sensation intact. Capillary refill < 3 seconds, Range of motion: intact in all extremities. Historical: - Allergies: 17:42 No Known Allergies; kc6 - PMHx: 17:42 asbestosis; COPD; Hypertension; Congestive heart failure; kc6 - Immunization history:: Client reports receiving the 2nd dose of the Covid vaccine, Flu vaccine is up to date. - Social history:: Smoking status: Patient/guardian denies using tobacco. - Family history:: not pertinent. Screenin:03 [facility] ED Fall Risk Assessment (Adult) History of falling in the last 3 months, kc6 including since admission No falls in past 3 months (0 pts) Confusion or Disorientation No (0 pts) Intoxicated or Sedated No (0 pts) Impaired Gait No (0 pts) Mobility Assist Device Used No (0 pt) Altered Elimination No (0 pt) Score/Fall Risk Level 0 - 2 = Low Risk Oriented to surroundings, Maintained a safe environment, Educated pt \T\ family on fall prevention, incl call for assistance when getting out of bed, Assessed \T\ reinforced patient's understanding of fall precautions, Hourly rounding (assess needs \T\ fall precautionary measures) done. Abuse screen: Denies threats or abuse. Denies injuries from another. Nutritional screening: No deficits noted. Tuberculosis screening: No symptoms or risk factors identified. Assessment: 17:45 Reassessment: please see triage assessment. kc 18:45 Reassessment: Patient appears in no apparent distress at this time. No changes from 6 previously documented assessment. Patient and/or family updated on plan of care and expected duration. Pain level reassessed. Patient is alert, oriented x 3, equal unlabored respirations, skin warm/dry/pink. 19:15 Reassessment: Patient appears in no apparent distress at this time. Patient and/or jb4 family updated on plan of care and expected duration. Pain level reassessed. Patient is alert, oriented x 3, equal unlabored respirations, skin warm/dry/pink. 20:55 Reassessment: Patient appears in no apparent distress at this time. Patient and/or jb4 family updated on plan of care and expected duration. Pain level reassessed. Patient is alert, oriented x 3, equal unlabored respirations, skin warm/dry/pink. 22:17 Reassessment: Patient appears in no apparent distress at this time. Patient and/or jb4 family updated on plan of care and expected duration. Pain level reassessed. Patient is alert, oriented x 3, equal unlabored respirations, skin warm/dry/pink. Vital Signs: 17:45 BP 145 / 86; Pulse 135; Resp 37 S; Pulse Ox 98% on CPAP; Weight 170.1 kg (R); Height 6 kc6 ft. 0 in. (182.88 cm) (R); Pain 4/10; 18:13 BP 115 / 79; Pulse 113; Resp 22 S; Pulse Ox 97% on BiPAP; kc6 18:37 BP 113 / 75; Pulse 98; Resp 19 S; Pulse Ox 100% on BiPAP; kc6 19:00 BP 138 / 97; Pulse 98; Resp 18; Pulse Ox 100% ; vc1 20:14 Temp 97.5(TE); jb4 20:30 BP 144 / 86; Pulse 96; Resp 20; Pulse Ox 100% on 40% BiPAP; jb4 22:17 BP 121 / 82; Pulse 101; Resp 19; Pulse Ox 97% on 4 lpm NC; jb4 17:45 Body Mass Index 50.86 (170.10 kg, 182.88 cm) kc6 ED Course: 17:41 Patient arrived in ED. kc6 17:41 Gregor Vanessa MD is Attending Physician. rt 17:45 Arm band placed on. kc6 17:45 Patient has correct armband on for positive identification. Placed in gown. Bed in low kc6 position. Call light in reach. Side rails up X2. 17:59 Michelle Colmenares RN is Primary Nurse. kc6 18:01 Triage completed. kc6 19:19 Delia Banerjee MD is Hospitalizing Provider. rt 19:45 Chest Single View XRAY In Process Unspecified. EDMS 21:03 Primary Nurse role handed off by Michelle Colmenares RN wm 21:54 Jose Roberto Mccartney, SUSAN is Primary Nurse. jb4 22:16 No provider procedures requiring assistance completed. Patient admitted, IV remains in jb4 place. Administered Medications: 17:50 Drug: Cardizem (diltiazem) 10 mg Route: IVP; Site: left antecubital; kc6 17:50 Drug: Xopenex (levalbuterol) (3) 0.63 mg Route: Inhalation; kc6 17:53 Drug: Lasix (furosemide) 40 mg Route: IVP; Site: left antecubital; kc6 20:51 Drug: Lovenox (enoxaparin) 120 mg Route: Sub-Q; Site: right lower abdomen; jb4 22:10 Drug: Rocephin (cefTRIAXone) 1 grams Route: IV; Rate: calculated rate; Site: left jb4 antecubital; 22:10 Drug: AZITHromycin 500 mg Route: IVPB; Infused Over: 1 hrs; Site: left antecubital; jb4 Outcome: 19:20 Decision to Hospitalize by Provider. rt 22:16 Admitted to Tele accompanied by tech, via stretcher, room 405, with oxygen, with chart. jb4 22:16 Condition: stable 22:16 Discharge instructions given to patient, Instructed on the need for admit, Demonstrated understanding of instructions. 22:17 Patient left the ED. jb4 Signatures: Dispatcher [employer] EDMS Jose Roberto Mccartney RN RN jb4 Netta Mackay Maryana Helton RN RN vc1 Michelle Colmenares RN RN kc6 Gregor Vanessa MD MD rt Corrections: (The following items were deleted from the chart) 18:08 17:45 Acuity: EV 3 kc6 kc6 21:22 20:30 BP 144 / 86; Pulse 96bpm; Resp 20bpm; Pulse Ox 100% RA; jb4 jb4
--- NOTE | 2022-07-05 19:56 | RAD REPORT ---
EXAM DESCRIPTION: RAD - Chest Single View - 07/05/2022 7:43 pm CLINICAL HISTORY: DYSPNEA COMPARISON: Chest Single View dated 10/30/2019; Chest For Pe Angio dated 10/30/2019 FINDINGS: Lines: None. Lungs: Diffuse prominence of the pulmonary interstitium. Pleural: Probable pleural effusions bilaterally. There is blunting of the costophrenic angles bilater ally. Underpenetration could contribute as well. Cardiac: Similar mild cardiomegaly. Mediastinum: Within normal limits. Bones: No acute fractures. Other: None IMPRESSION: Findings may rep pulmonary edema with bilateral pleural effusions. Pneumonia, particular ly in the lung bases, difficult to exclude radiographically.
--- NOTE | 2022-07-05 20:22 | P.HP ---
Certification for Inpatient Patient admitted to: Inpatient With expected LOS: >2 Midnights Patient will require the following post-hospital care: None Practitioner: I am a practitioner with admitting privileges, knowledge of patient current condition, hospital course, and medical plan of care. Services: Services provided to patient in accordance with Admission requirements found in Title 42 Section 412.3 of the Code of Federal Regulations Patient History Date of Service: 07/05/22 Primary Care Provider: AYUSH Reason for admission: Acute Respiratory Failure History of Present Illness: Patient is a 62 year old male with past medical history of COPD on 4L, hypertension, morbid obesity, chronic diastolic CHF who presented to the emergency department with complaints of shortness of breath and hypoxia. He was noted to be saturating 80% on 4L and was placed on bipap. ABG pH 7.27, pCO2 83.1, pO2 49, bicarb 36.5. Labs significant for WBC 19.7 with left shift, hgb 11.7, BUN 23, glucose 225, BNP 1712. Covid/flu negative. He was also noted to be in afib RVR (not history of)- cardizem was given and improved his rate. His chest xray showed "Findings may represent pulmonary edema with bilateral pleural effusions. Pneumonia, particularly in the lung bases, difficult to exclude radiographically." Chest CTA is pending. He was given IV lasix, xopenex, and therapeutic lovenox in the emergency department. He is now saturating 100% on bipap. He reports feeling much better. Patient is admitted for further management. Allergies No Known Allergies Allergy (Unverified 10/30/19 20:59) Home medications list reviewed: Yes Home Medications: Albuterol Sulfate [Proair Respiclick] 1 puff IH Q6HP PRN 10/30/19 Allopurinol 300 mg PO BEDTIME 10/30/19 Amlodipine [Norvasc*] 10 mg PO DAILY 10/30/19 Budesonide/Formoterol Fumarate [Symbicort 160-4.5 Mcg Inhaler] 2 puff IH DAILY 10/30/19 Cholecalciferol (Vitamin D3) [Vitamin D 400 IU TAB*] 400 unit PO DAILY 10/30/19 Tamsulosin [Flomax*] 0.4 mg PO BEDTIME 10/30/19 Tiotropium [Spiriva Handihaler*] 18 mcg IH DAILY 10/30/19 Furosemide [Lasix] 40 mg PO BIDL #60 tab 10/31/19 Metoprolol Tartrate [Lopressor*] 25 mg PO BID #60 tab 10/31/19 predniSONE [Deltasone*] 10 mg PO SEECOM #15 tab 10/31/19 - Past Medical/Surgical History Diabetic: No -: Hypertension -: COPD -: Asbestos -: Colon CA -: CHF -: BPH -: Colon resection -: colostomy reversal -: bilateral knee surgery -: right ankle sx Psychosocial/ Personal History: Patient lives at home with his mother. - Family History Family History: Reviewed- Non-Contributory - Social History Smoking Status: Former smoker Alcohol use: No CD- Drugs: No Caffeine use: Yes Place of Residence: Home Review of Systems Respiratory: Cough, Shortness of Breath Cardiovascular: Chest Pain, Edema Physical Examination - Vital Signs Temperature: 97.5 F Blood Pressure: 144/86 Pulse: 96 Respirations: 20 Pulse Ox (%): 100 (4L NC) - Physical Exam General: Alert, Mild distress, Obese HEENT: Atraumatic, PERRLA, EOMI, Sclerae nonicteric Neck: Supple, 2+ carotid pulse no bruit, No LAD, Without JVD or thyroid abnormality Respiratory: Crackles/rales Cardiovascular: Regular rate/rhythm, Normal S1 S2, Edema (3+ pitting edema BLE) Gastrointestinal: Normal bowel sounds, No tenderness Musculoskeletal: No tenderness Integumentary: No rashes Neurological: Normal speech, Normal strength at 5/5 x4 extr, Normal tone, Normal affect - Studies Laboratory Data (last 24 hrs) 07/05/22 17:52: Sodium 137, Potassium 4.4, BUN 23 H, Creatinine 1.12, Glucose 225 H, Magnesium 2.4, Total Bilirubin 0.3, AST 23, ALT 42, Alkaline Phosphatase 71 07/05/22 17:52: WBC 19.70 H, Hgb 11.7 L, Hct 36.4 L, Plt Count 472 H Assessment and Plan - Problems (Diagnosis) (1) Acute respiratory failure Current Visit: Yes Status: Acute Qualifiers: Respiratory failure complication: hypoxia and hypercapnia Qualified Code(s): J96.01 - Acute respiratory failure with hypoxia; J96.02 - Acute respiratory failure with hypercapnia; J96.02 - Acute respiratory failure with hypercapnia (2) Congestive heart failure Current Visit: Yes Status: Acute Qualifiers: Heart failure type: diastolic Heart failure chronicity: acute on chronic Qualified Code(s): I50.33 - Acute on chronic diastolic (congestive) heart failure (3) COPD (chronic obstructive pulmonary disease) Current Visit: Yes Status: Chronic Qualifiers: COPD type: unspecified COPD Qualified Code(s): J44.9 - Chronic obstructive pulmonary disease, unspecified (4) Hypertension Current Visit: Yes Status: Chronic Qualifiers: Hypertension type: primary hypertension Qualified Code(s): I10 - Essential (primary) hypertension (5) Morbid obesity Current Visit: Yes Status: Chronic (6) Chronic respiratory failure Current Visit: Yes Status: Chronic Qualifiers: Respiratory failure complication: hypoxia and hypercapnia Qualified Code(s): J96.11 - Chronic respiratory failure with hypoxia; J96.12 - Chronic respiratory failure with hypercapnia; J96.12 - Chronic respiratory failure with hypercapnia (7) Atrial fibrillation Current Visit: Yes Status: Acute Qualifiers: Atrial fibrillation type: paroxysmal Qualified Code(s): I48.0 - Paroxysmal atrial fibrillation (8) Sepsis Current Visit: Yes Status: Acute Qualifiers: Sepsis type: sepsis due to unspecified organism Sepsis acute organ dysfunction status: with acute organ dysfunction Severe sepsis acute organ dysfunction type: acute respiratory failure Acute respiratory failure type: with hypoxia Severe sepsis shock status: without septic shock Qualified Co de(s): A41.9 - Sepsis, unspecified organism; R65.20 - Severe sepsis without septic shock; J96.01 - Acute respiratory failure with hypoxia - Plan Patient is admitted for further management of acute respiratory failure and new onset atrial fibrillation. Respiratory failure multifactorial- COPD, CHF exacerbation, possible pneumonia. Pulmonology consult. Chest CTA with nonspecific findings. Will go ahead and treat as pneumonia. Patient meeting severe sepsis criteria without septic shock. Blood cultures obtained. Lactate pending. Azithromycin and rocephin started in ED. Continue bipap and wean as tolerated. Patient on 4L NC at baseline. Cardiology consult for new afib. Rate controlled after cardizem in ED. Patient does not believe he has a history of afib. CTA chest pending. Pneumonia seems likely given leukocytosis however patient reports he had a cortisone knee injection this week. Will also order echo given history of CHF (unknown EF) and new onset afib. Patient gets most of his care at the [facility] but is known by Dr. Spence. Monitor and replete electrolytes per protocol. Reconcile and continue home medications. Lovenox for VTE prophylaxis. Full code. Discharge Plan: Home Plan to discharge in: Greater than 2 days - Advance Directives Does patient have a Living Will: No Does patient have a Durable POA for Healthcare: No - Code Status/Comfort Care Code Status Assessed: Yes Code Status: Full Code Physician Review: Patient Assessed, Agree with Above Assessment and Plan Critical Care: No Time Spent Managing Pts Care (In Minutes): 50
[2022-07-05 20:23] LABS: SARS-COV-2 RT PCR NEGATIVE (NEGATIVE)
[2022-07-05] MEDS ORDERED: ENOXAPARIN 60 MG/0.6 ML SQ ONE (20:51)
--- NOTE | 2022-07-05 21:08 | RAD REPORT ---
EXAM DESCRIPTION: CT - Chest For Pe Angio - 07/05/2022 8:59 pm CLINICAL HISTORY: hypoxia COMPARISON: Chest For Pe Angio dated 10/30/2019; Chest Single View dated 07/05/2022 TECHNIQUE: Dynamically enhanced axial 3 mm thick images of the chest were obtained during administra tion of <100> mL Isovue 370 IV contrast. Coronal and oblique reconstruction images were generated and reviewed. Exam utilizes a protocol for optimal evaluation of pulmonary arterial tree. Maximum intensity projections 3D imaging was utilized All CT scans are performed using dose optimization technique as appropriate and may include automated exposure control or mA/KV adjustment according to patient size. FINDINGS: Chest Wall: No suspicious thyroid nodules or pathologic lymphadenopathy. Lungs: Dependent atelectasis. Mild interlobular septal thickening is present within the lung bases Pleura: No significant effusions or pneumothorax. Mediastinum/misael: No pathologic lymphadenopathy. Pulmonary arteries/Aorta: No filling defect identified. No aortic aneurysm. Heart: No significant pericardial effusion. Normal heart size. Upper abdomen: No acute abnormality.Hepatomegaly and hepatic steatosis. Cirrhotic liver morphology palomino spected. Possible cholelithiasis but only partially imaged. Bones: No acute abnormality. IMPRESSION: Negative for pulmonary embolism. Dependent atelectasis and interlobular septal thickenin g in the could reflect mild interstitial edema.
[2022-07-05] MEDS ORDERED: NA CHLORIDE 0.9% 250 ML ONE (22:01)
[2022-07-05] MEDS ORDERED: AZITHROMYCIN 500 MG INJ IVPB ONE (22:01)
[2022-07-05] MEDS ORDERED: CEFTRIAXONE 1000 MG/VIAL ONE (22:01)
[2022-07-05] MEDS ORDERED: ONDANSETRON 4 MG/2 ML VIAL IV PRN (22:41)
[2022-07-05] MEDS ORDERED: ALBUTEROL 2.5 MG/3 ML NEB SOL NEB PRN (22:41)
[2022-07-05] MEDS ORDERED: IPRATROPIUM BROM 0.5MG/2.5ML NEB PRN (22:41)
[2022-07-05] MEDS ORDERED: HOME MED 1 EA UNK (Albuterol Sulfate [Proair Respiclick] 90 MCG Aer.Pow.Ba) IH PRN (23:24)
[2022-07-05] MEDS: ATORVASTATIN 40 MG TAB PO SCH (23:54)
[2022-07-05] MEDS: TAMSULOSIN 0.4 MG SR CAP PO SCH (23:54)
[2022-07-05] MEDS: NICOTINE 21 MG/PAT TD SCH (23:54)
[2022-07-05] MEDS: METOPROLOL TAR 50 MG TAB PO SCH (23:55)
[2022-07-05] MEDS: ACETAMINOPHEN 500 MG TAB PO PRN (23:55)
[2022-07-05] MEDS: allopurinoL 300 MG TAB PO SCH (23:56)
[2022-07-06] MEDS: DIPHENHYDRAMINE 25 MG TAB/CAP PO SCH ×2 (01:56→22:03)
[2022-07-06 05:03] LABS: Absolute Lymphocytes (CBC) 0.6 K/uL (0.7-4.9); Hematocrit 33.5 % (39.6-49.0); Lymphocytes % 3.7 % (15.3-44.8); MCV 85.1 fL (80-100); MPV 7.7 fL (7.6-11.3); RBC Red Blood Cell Count 3.93 M/uL (4.33-5.43)
[2022-07-06 05:30] LABS: Magnesium 2.4 mg/dL (1.6-2.4); Phosphorus 3.4 mg/dL (2.5-4.9); Potassium 4.4 mmol/L (3.5-5.1)
[2022-07-06] MEDS: NICOTINE 21 MG/PAT TD SCH (08:43)
[2022-07-06] MEDS: ENOXAPARIN 40 MG/0.4 ML SQ SCH (08:44)
[2022-07-06] MEDS: FUROSEMIDE 40 MG TABLET PO SCH ×2 (08:45→16:24)
[2022-07-06] MEDS: AMLODIPINE 10 MG TAB PO SCH (08:45)
[2022-07-06] MEDS: METOPROLOL TAR 50 MG TAB PO SCH ×2 (08:46→22:02)
[2022-07-06] MEDS: TIOTROPIUM IH SCH (08:48)
[2022-07-06] MEDS: ASPIRIN 81 MG CHEWABLE TABLET PO SCH (08:48)
[2022-07-06 10:28] LABS: Specific Gravity > 1.030 (1.005-1.030); Urine Bacteria None Seen /HPF (<20); Urine Bilirubin NEGATIVE (Negative); Urine Blood Negative (Negative); Urine Clarity Clear (Clear); Urine Color Light-Yellow (Yellow); Urine Glucose NEGATIVE (Negative); Urine Protein 1+ (Negative); Urine Urobilinogen Normal (Normal)
--- NOTE | 2022-07-06 12:16 | P.PN ---
Subjective Date of Service: 07/06/22 Subjective: No new changes, No C/O voiced, Improving Patient still is tachypneic and hypoxic; continue with diuresing. Currently patient is on BiPAP. We will wean patient off BiPAP. Review of Systems 10-point ROS is otherwise unremarkable Physical Examination - Vital Signs Temperature: 98.0 F Blood Pressure: 123/77 Pulse: 85 Respirations: 20 Pulse Ox (%): 99 - Physical Exam General: Alert, In no apparent distress HEENT: Atraumatic, PERRLA, EOMI Neck: Supple, JVD not distended Respiratory: Clear to auscultation bilaterally, Normal air movement Cardiovascular: Regular rate/rhythm, Normal S1 S2 Gastrointestinal: Normal bowel sounds, No tenderness Musculoskeletal: No tenderness Integumentary: No rashes Neurological: Normal speech, Normal tone, Normal affect Lymphatics: No axilla or inguinal lymphadenopathy - Studies Laboratory Data (last 24 hrs) 07/05/22 17:52: Sodium 137, Potassium 4.4, BUN 23 H, Creatinine 1.12, Glucose 225 H, Magnesium 2.4, Total Bilirubin 0.3, AST 23, ALT 42, Alkaline Phosphatase 71 07/05/22 17:52: WBC 19.70 H, Hgb 11.7 L, Hct 36.4 L, Plt Count 472 H Medications List Reviewed: Yes Assessment & Plan - Problems (Diagnosis) (1) Acute respiratory failure Current Visit: Yes Status: Acute Qualifiers: Respiratory failure complication: hypoxia and hypercapnia Qualified Code(s): J96.01 - Acute respiratory failure with hypoxia; J96.02 - Acute respiratory failure with hypercapnia; J96.02 - Acute respiratory failure with hypercapnia (2) Atrial fibrillation Current Visit: Yes Status: Acute Qualifiers: Atrial fibrillation type: paroxysmal Qualified Code(s): I48.0 - Paroxysmal atrial fibrillation (3) Congestive heart failure Current Visit: Yes Status: Acute Qualifiers: Heart failure type: diastolic Heart failure chronicity: acute on chronic Qualified Code(s): I50.33 - Acute on chronic diastolic (congestive) heart failure (4) COPD (chronic obstructive pulmonary disease) Current Visit: Yes Status: Acute Qualifiers: COPD type: COPD with acute exacerbation Qualified Code(s): J44.1 - Chronic obstructive pulmonary disease with (acute) exacerbation (5) Hypertension Current Visit: Yes Status: Chronic Qualifiers: Hypertension type: primary hypertension Qualified Code(s): I10 - Essential (primary) hypertension (6) Morbid obesity Current Visit: Yes Status: Chronic (7) Obesity hypoventilation syndrome Current Visit: Yes Status: Acute - Plan 1. Echocardiogram pending 2. Continue with strict BP control 3. Low dose Beta sushant therapy 4. Cardiology consultation appreciated 5. Aggressive diuresis 6. Strict I's and O's 7. Repeat CXR 8. Daily weights 9. BIPAP support prn 10. Continue with nebs, steroids, 11. Education regarding diet and treatment of congestive heart failure Discharge Plan: Home Plan to discharge in: Greater than 2 days - Advance Directives Does patient have a Living Will: No Does patient have a Durable POA for Healthcare: No - Code Status/Comfort Care Code Status: Full Code Physician Review: Patient Assessed, Agree with Above Assessment and Plan Critical Care: No Time Spent Managing PTS Care (In Minutes): 35
[2022-07-06] MEDS ORDERED: HYDROCORTISONE SUC 100 MG INJ IV ONE (12:30)
--- NOTE | 2022-07-06 18:35 | CON ---
Date of Consultation: 07/06/2022 Reason For Consultation: Heart failure and atrial fibrillation. History Of Present Illness: A 62-year-old male with history of COPD on 4 L oxygen at home, has hyper tension, diastolic heart failure, morbid obesity who presented to emergency department with shortness of breath, orthopnea, lower extremity edema. He was hypoxic on 4 L. He was making 80% and improved with BiPAP. Denies having any chest pain. He has a very longstanding lower extremity edema with ch ronic skin stasis and poor feet care. Past Medical History: As outlined above in the HPI. Medications: Refer to reconciliation sheet for detailed list. Allergies: NO KNOWN DRUG ALLERGIES. Family History: No premature coronary artery disease or cancer. Social History: Ex-smoker. Does not drink or use any drugs. Review of Systems: All systems reviewed and they were negative except for what mentioned in the HPI. Physical Examination: Vital Signs: Temperature is 97.4, pulse 79, breathing at 18, blood pressure 132/75, saturating 96% w ith oxygen now. General: Pleasant, middle-aged male, morbidly obese, no apparent distress. Head and Neck: Pupils are equal, reactive to light. Intact eye movements. No JVD. No cervical lym phadenopathy. Neck: Supple. Thyroid not enlarged. Lungs: Decreased breathing sounds with crackles in bases. No accessory muscle use or muscle retract ion. Heart: Irregularly irregular. No extra sounds. Abdomen: Soft, nontender. Bowel sounds positive. No organomegaly. No masses or hernia. No rigidi ty or rebound. Extremities: 3+ pitting edema bilaterally. No clubbing, cyanosis. Pulses are diminished. Has very poor feet care, very long nails that are not well taken care of. Neuro: Alert, awake, oriented x3. No acute focal deficits appreciated. Lymph nodes: No cervical or axillary lymphadenopathy. Investigations: BUN 29, creatinine 1, and hemoglobin is 10.8. Assessment And Recommendation: 1.Acute hypoxic respiratory failure due to chronic obstructive pulmonary disease exacerbation plus c ongestive heart failure exacerbation. Recommend IV diuresis with Lasix 40 mg IV q.12 hours. Monitor BUN, creatinine, electrolytes, and obtain echocardiogram. 2.Atrial fibrillation. Recommend to load with IV amiodarone and attempt to convert into sinus rhyth m and continue metoprolol. 3.Significant lower extremity edema and poor feet care. Recommend consult Podiatry if available. /GAVINO Voice ID: [id number] Report ID: [id number]
[2022-07-06] MEDS: ACETAMINOPHEN 500 MG TAB PO PRN (22:02)
[2022-07-06] MEDS: HYDROCORTISONE SUC 100 MG INJ IV SCH (22:03)
[2022-07-06] MEDS: TAMSULOSIN 0.4 MG SR CAP PO SCH (22:03)
[2022-07-06] MEDS: ATORVASTATIN 40 MG TAB PO SCH (22:03)
[2022-07-06] MEDS: allopurinoL 300 MG TAB PO SCH (22:03)
[2022-07-07 04:13] LABS: Absolute Lymphocytes (CBC) 0.9 K/uL (0.7-4.9); Hematocrit 35.7 % (39.6-49.0); Lymphocytes % 6.6 % (15.3-44.8); MCV 84.9 fL (80-100); MPV 7.8 fL (7.6-11.3)
[2022-07-07 04:38] LABS: Albumin 3.3 g/dL (3.4-5.0); Bilirubin Total 0.4 mg/dL (0.2-1.0); Magnesium 2.5 mg/dL (1.6-2.4); Potassium 4.1 mmol/L (3.5-5.1); Protein, Total 7.7 g/dL (6.4-8.2); Thyroid Stimulating Hormone 0.642 uIU/mL (0.358-3.740)
--- NOTE | 2022-07-07 07:51 | RAD REPORT ---
EXAM DESCRIPTION: RAD - Chest Single View - 07/07/2022 7:02 am CLINICAL HISTORY: pneumonia COMPARISON: Chest Single View dated 07/05/2022; Chest Single View dated 10/30/2019; Chest For Pe Angio dated 07/05/2022 FINDINGS: Lines: None. Lungs: Similar diffuse prominence of the pulmonary interstitium. Pleural: No significant pleural effusions or pneumothorax. Cardiac: Cardiomegaly. Mediastinum: Within normal limits. Bones: No acute fractures. Other: None IMPRESSION: Interstitial edema is without significant change.
[2022-07-07] MEDS: METOPROLOL TAR 50 MG TAB PO SCH ×2 (08:14→21:57)
[2022-07-07] MEDS: AMLODIPINE 10 MG TAB PO SCH (08:14)
[2022-07-07] MEDS: HYDROCORTISONE SUC 100 MG INJ IV SCH ×2 (08:14→21:57)
[2022-07-07] MEDS: ENOXAPARIN 40 MG/0.4 ML SQ SCH (08:14)
[2022-07-07] MEDS: NICOTINE 21 MG/PAT TD SCH (08:15)
[2022-07-07] MEDS: ASPIRIN 81 MG CHEWABLE TABLET PO SCH (08:15)
[2022-07-07] MEDS: FUROSEMIDE 40 MG TABLET PO SCH ×2 (08:15→16:02)
[2022-07-07] MEDS: TIOTROPIUM IH SCH (08:16)
--- NOTE | 2022-07-07 11:44 | P.CNS ---
Date of Consult: 07/07/22 Reason for Consult: Respiratory failure Primary Care Provider: AYUSH Chief Complaint: Acute on chronic respiratory failure History of Present Illness: Patient is 62 years of age with a history of COPD sleep apnea morbid obesity diastolic heart failure came in with worsening shortness of breath for del failure hypoxemia hypercapnia history of obstructive sleep apnea noncompliant with CPAP has not used it complaining of too much [facility] is no evidence of's pulmonary embolism pliant with his inhalers at home denies any fever or chills Allergies No Known Allergies Allergy (Unverified 10/30/19 20:59) Home Medications: Albuterol Sulfate [Proair Respiclick] 1 puff IH Q6HP PRN 10/30/19 Allopurinol 300 mg PO BEDTIME 10/30/19 Amlodipine [Norvasc*] 10 mg PO DAILY 10/30/19 Cholecalciferol (Vitamin D3) [Vitamin D 400 IU TAB*] 400 unit PO DAILY 10/30/19 Tamsulosin [Flomax*] 0.4 mg PO BEDTIME 10/30/19 Tiotropium [Spiriva Handihaler*] 18 mcg IH DAILY 10/30/19 Furosemide [Lasix] 40 mg PO BIDL #60 tab 10/31/19 Metoprolol Tartrate [Lopressor*] 25 mg PO BID #60 tab 10/31/19 Acetaminophen [Tylenol Extra Strength] 500 mg PO BID 07/05/22 Aspirin 81 mg PO DAILY 07/05/22 Atorvastatin Calcium [Lipitor] 40 mg PO BEDTIME 07/05/22 Metformin HCl 500 mg PO BID 07/05/22 Potassium Bicarbonate/Cit AC [Klor-Con-Ef 25 Meq Tab Eff] 25 meq PO BID 07/05/22 Vit A/Vit C/Vit E/Zinc/Copper [Preservision Areds Softgel] 1 each PO 07/05/22 predniSONE [Deltasone*] 10 mg PO DAILY 07/05/22 Diphenhydramine HCl [Benadryl Allergy] 50 mg PO BEDTIME 07/06/22 - Past Medical/Surgical History Diabetic: Yes -: Hypertension -: COPD -: Asbestos -: Colon CA -: CHF -: BPH -: Colon resection -: colostomy reversal -: bilateral knee surgery -: right ankle sx Psychosocial/ Personal History: Patient lives at home with his mother. - Family History Mother Medical History: Hypertension, Other (see notes) Notes: glaucoma, tremors Father Medical History: Diabetes, Stroke - Social History Smoking Status: Current every day smoker Alcohol use: Yes CD- Drugs: No Caffeine use: Yes Place of Residence: Home Review of Systems 10-point ROS is otherwise unremarkable Respiratory: Shortness of Breath Cardiovascular: Edema Physical Examination Temp Pulse Resp BP Pulse Ox 97.3 F 75 19 125/60 97 07/07/22 08:00 07/07/22 08:14 07/07/22 08:00 07/07/22 08:14 07/07/22 08:00 General: Alert, Oriented x3 Respiratory: Clear to auscultation bilaterally, Diminished Cardiovascular: Normal S1 S2, Edema Gastrointestinal: Normal bowel sounds, Soft and benign Musculoskeletal: No clubbing Integumentary: No rashes, No breakdown - Problems (1) Chronic respiratory failure with hypoxia and hypercapnia Current Visit: Yes Status: Acute Plan: Patient is 62 years of age has chronic hypoxemia hypercapnia history of presumed severe COPD followed up at the [facility] uses Breo and Wixela at home noncompliant with his CPAP admitted with hypoxemia hypercapnia patient will benefit from a noninvasive ventilator need to follow-up outpatient with pulmonary function testing he got his CPAP machine from [place] was seen at the [facility] was told to have another sleep study done has chronic diastolic heart failure better Diamox and spironolactone continue with p.o. Lasix continue with bronchodilators patient is currently is doing better he is 97% on 4 L I also instructed the patient to bring his CPAP from home so that I can have a look at it may be adjusted his pressures
[2022-07-07] MEDS: SPIRONOLACTONE 25 MG TABLET PO SCH (12:10)
[2022-07-07] MEDS: acetaZOLAMIDE 250 MG TAB PO SCH ×2 (12:10→21:58)
[2022-07-07] MEDS: DULERA 200/5 (MOMETASONE/FORMOTEROL) INHALER IH SCH ×2 (13:18→21:51)
[2022-07-07] MEDS: DIPHENHYDRAMINE 25 MG TAB/CAP PO SCH (21:50)
[2022-07-07] MEDS: ACETAMINOPHEN 500 MG TAB PO PRN (21:50)
[2022-07-07] MEDS: allopurinoL 300 MG TAB PO SCH (21:58)
[2022-07-07] MEDS: TAMSULOSIN 0.4 MG SR CAP PO SCH (21:58)
[2022-07-07] MEDS: ATORVASTATIN 40 MG TAB PO SCH (21:58)
--- NOTE | 2022-07-08 00:16 | P.PN ---
Date of Service: 07/07/22 Subjective Subjective: Patient's clinical symptoms continue to improve. Patient is feeling much better. Seen by the Pulmonary and they recommended patient going ahead and getting your CPAP to the hospital so they can make sure patient's pressures are appropriate for his current clinical status. Started on acetazolamide as well. Echocardiogram pending for the morning. Heart rate controlled. Volume status is improved and he appears to be better compensated today. Anticipate discharge over the next 24-48 hours. Review of Systems 10-point ROS is otherwise unremarkable Physical Examination - Vital Signs reviewed - Physical Exam General: Alert, In no apparent distress Respiratory: Clear to auscultation bilaterally, Normal air movement Cardiovascular: Regular rate/rhythm, Normal S1 S2 Gastrointestinal: Normal bowel sounds, No tenderness Musculoskeletal: No tenderness Neurological: No foocal deficits Assessment & Plan - Problems (Diagnosis) (1) Acute respiratory failure Current Visit: Yes Status: Acute Respiratory failure complication: hypoxia and hypercapnia Qualified Code(s): J96.01 - Acute respiratory failure with hypoxia; J96.02 - Acute respiratory failure with hypercapnia; J96.02 - Acute respiratory failure with hypercapnia (2) Atrial fibrillation Current Visit: Yes Status: Acute Qualifiers: Atrial fibrillation type: paroxysmal Qualified Code(s): I48.0 - Paroxysmal atrial fibrillation (3) Congestive heart failure Current Visit: Yes Status: Acute Qualifiers: Heart failure type: diastolic Heart failure chronicity: acute on chronic Qualified Code(s): I50.33 - Acute on chronic diastolic (congestive) heart failure (4) COPD (chronic obstructive pulmonary disease) Current Visit: Yes Status: Acute Qualifiers: COPD type: COPD with acute exacerbation Qualified Code(s): J44.1 - Chronic obstructive pulmonary disease with (acute) exacerbation (5) Hypertension Current Visit: Yes Status: Chronic Qualifiers: Hypertension type: primary hypertension Qualified Code(s): I10 - Essential (primary) hypertension (6) Morbid obesity Current Visit: Yes Status: Chronic (7) Obesity hypoventilation syndrome Current Visit: Yes Status: Acute - Plan Continue with POC as mentioned below: 1. Echocardiogram pending 2. Continue with strict BP control 3. Low dose Beta sushant therapy 4. Cardiology consultation appreciated 5. Aggressive diuresis 6. Strict I's and O's 7. Repeat CXR 8. Daily weights 9. BIPAP support prn 10. Continue with nebs, steroids, 11. Education regarding diet and treatment of congestive heart failure
[2022-07-08 04:02] LABS: Hematocrit 35.3 % (39.6-49.0); Lymphocytes % 7.5 % (15.3-44.8); MCV 85.6 fL (80-100); MPV 8.1 fL (7.6-11.3); RBC Red Blood Cell Count 4.13 M/uL (4.33-5.43)
[2022-07-08 04:26] LABS: Phosphorus 4.5 mg/dL (2.5-4.9); Potassium 4.4 mmol/L (3.5-5.1)
[2022-07-08 05:42] LABS: Magnesium 2.7 mg/dL (1.6-2.4)
[2022-07-08] MEDS: TIOTROPIUM IH SCH (09:00)
[2022-07-08] MEDS: AMLODIPINE 10 MG TAB PO SCH ×2 (09:00→09:04)
[2022-07-08] MEDS: ENOXAPARIN 40 MG/0.4 ML SQ SCH (09:03)
[2022-07-08] MEDS: DULERA 200/5 (MOMETASONE/FORMOTEROL) INHALER IH SCH ×2 (09:03→21:27)
[2022-07-08] MEDS: HYDROCORTISONE SUC 100 MG INJ IV SCH ×2 (09:03→21:26)
[2022-07-08] MEDS: NICOTINE 21 MG/PAT TD SCH (09:04)
[2022-07-08] MEDS: METOPROLOL TAR 50 MG TAB PO SCH ×2 (09:05→21:00)
[2022-07-08] MEDS: SPIRONOLACTONE 25 MG TABLET PO SCH (09:05)
[2022-07-08] MEDS: acetaZOLAMIDE 250 MG TAB PO SCH ×2 (09:05→21:26)
--- NOTE | 2022-07-08 09:05 | RAD REPORT ---
EXAM DESCRIPTION: RAD - Chest Single View - 07/08/2022 5:56 am CLINICAL HISTORY: pneumonia Chest pain. COMPARISON: Chest Single View dated 07/07/2022; Chest Single View dated 07/05/2022; Chest Single View dated 10/30/2019 FINDINGS: Portable technique limits examination quality. Mild bilateral pulmonary opacities are present, mildly progressive since yesterday's study. The heart is mildly enlarged in size. No displaced fractures. IMPRESSION: Mild worsening in lung aeration seen since comparative study.
[2022-07-08] MEDS: FUROSEMIDE 40 MG TABLET PO SCH ×2 (09:06→17:15)
[2022-07-08] MEDS: ASPIRIN 81 MG CHEWABLE TABLET PO SCH (09:06)
[2022-07-08] MEDS: METFORMIN HCL 500 MG TAB PO SCH ×2 (09:09→21:26)
[2022-07-08] MEDS: ACETAMINOPHEN 500 MG TAB PO PRN (17:16)
--- NOTE | 2022-07-08 17:27 | P.PN ---
Subjective Date of Service: 07/08/22 Primary Care Provider: KS Chief Complaint: Acute on chronic respiratory failure No acute events overnight. He reports that his breathing is gradually improving. He denies any chest pain or palpitations. He states that he uses 4 L of nasal cannula at home. Review of Systems 10-point ROS is otherwise unremarkable Respiratory: Shortness of Breath Cardiovascular: Orthopnea Physical Examination - Vital Signs Temperature: 96.9 F Blood Pressure: 126/64 Pulse: 83 Respirations: 18 Pulse Ox (%): 98 - Physical Exam General: Alert, In no apparent distress, Oriented x3 HEENT: Atraumatic, Mucous membr. moist/pink, EOMI, Sclerae nonicteric Neck: JVD not distended (difficult to assess due to habitus) Respiratory: Crackles/rales (bibasilar) Cardiovascular: No murmurs, Edema (1+ BLE), Irregular heart rate/rhythm Gastrointestinal: Normal bowel sounds, Soft and benign, Non-distended, No tenderness, No rebound, No guarding Musculoskeletal: No clubbing Integumentary: No rashes Neurological: Normal speech, Cranial nerves 3-12 intact, Normal affect - Studies Medications List Reviewed: Yes Assessment And Plan - Plan # Acute on Chronic Hypoxemic Hypercapnic Respiratory Failure - likely secondary to Acute on Chronic Diastolic Congestive Heart Failure and Obesity Hypoventilation Syndrome # Chronic Obstructive Pulmonary Disease # Morbid Obesity - BMI 49.8 kg/m2 - Evaluation thus far: - Procalcitonin = < 0.05 - Influenza/COVID-19 swab = negative - ABG = pH 7.27, PCO2 83.1, PO2 49.0 - CT chest = "negative for pulmonary embolism. Dependent atelectasis and interlobular septal thickening in the could reflect mild interstitial edema." - Chest x-ray (07/08) = "interstitial edema is without significant change" - Management plan: - Consulted Pulmonary Medicine and spoke with Dr. Zendejas - recommendations appreciated - Consulted Respiratory Therapy - Supplemental oxygen to maintain SpO2 > 92% - Continue home metoprolol, spironolactone - Encouraged incentive spirometry - Strict I/O - Daily weight # Paroxysmal Atrial Fibrillation with Rapid Ventricular Response (improved) His [id number] = 3 (CHF=1, HTN=1, DM=1), which warrants anticoagulation. - Cardiology consulted - recommendations appreciated - For rate control: - Started metoprolol - For anticoagulation: - Started apixaban # Tobacco Use Disorder - Tobacco cessation counseling provided - Nicotine patch # Type II Diabetes Mellitus - Continue home metformin # Hypertension - Continue home amlodipine, metoprolol # Dyslipidemia - Continue home atorvastatin # Gout - Continue home allopurinol # Benign Prostatic Hyperplasia - Continue home tamsulosin # Microscopic Hematuria - Concerning for possible underling urologic malignancy given tobacco use - Follow-up with Urology at discharge Robbie Hernadez M.D.
[2022-07-08] MEDS ORDERED: FUROSEMIDE 40 MG/4 ML VIAL IV ONE (17:37)
[2022-07-08] MEDS ORDERED: ALBUTEROL 2.5 MG/3 ML NEB SOL NEB PRN (18:00)
[2022-07-08] MEDS: APIXABAN 5 MG TABLET PO SCH (18:09)
--- NOTE | 2022-07-08 20:08 | CON ---
Date of Consultation: 07/08/2022 Reason For Consultation: Congestive heart failure and atrial fibrillation. History Of Present Illness: This is a 62-year-old male with history of COPD, on oxygen; hypertension DICTATION ENDS HERE SR/MODL Voice ID: [id number] Report ID: [id number]
[2022-07-08] MEDS: TAMSULOSIN 0.4 MG SR CAP PO SCH (21:26)
[2022-07-08] MEDS: allopurinoL 300 MG TAB PO SCH (21:26)
[2022-07-08] MEDS: DIPHENHYDRAMINE 25 MG TAB/CAP PO SCH (21:26)
[2022-07-08] MEDS: ATORVASTATIN 40 MG TAB PO SCH (21:26)
[2022-07-09 00:16] VITALS: O2SAT 99
[2022-07-09 03:59] LABS: Absolute Lymphocytes (CBC) 1.2 K/uL (0.7-4.9); Hematocrit 35.2 % (39.6-49.0); Lymphocytes % 8.1 % (15.3-44.8); MCV 84.4 fL (80-100); MPV 7.6 fL (7.6-11.3); RBC Red Blood Cell Count 4.17 M/uL (4.33-5.43)
[2022-07-09 04:15] LABS: Phosphorus 3.4 mg/dL (2.5-4.9); Potassium 3.8 mmol/L (3.5-5.1)
[2022-07-09 06:20] VITALS: BMI 49.6
[2022-07-09] MEDS: acetaZOLAMIDE 250 MG TAB PO SCH (08:16)
[2022-07-09] MEDS: METFORMIN HCL 500 MG TAB PO SCH (08:16)
[2022-07-09] MEDS: APIXABAN 5 MG TABLET PO SCH (08:16)
[2022-07-09] MEDS: METOPROLOL TAR 50 MG TAB PO SCH (08:17)
[2022-07-09] MEDS: AMLODIPINE 10 MG TAB PO SCH (08:17)
[2022-07-09] MEDS: ASPIRIN 81 MG CHEWABLE TABLET PO SCH (08:17)
[2022-07-09] MEDS: SPIRONOLACTONE 25 MG TABLET PO SCH (08:17)
[2022-07-09] MEDS: NICOTINE 21 MG/PAT TD SCH (08:17)
[2022-07-09] MEDS: TIOTROPIUM IH SCH (08:18)
[2022-07-09] MEDS: DULERA 200/5 (MOMETASONE/FORMOTEROL) INHALER IH SCH (08:18)
[2022-07-09 08:22] VITALS: BP 125/62; TEMP 97.2
--- NOTE | 2022-07-09 08:45 | ECHO ---
HEIGHT: 6 ft 0 in WEIGHT: 366 lb 0 oz DATE OF STUDY: 07/08/[address]: Anabel Lock 2-DIMENSIONAL: YES M.MODE: YES DOPPLER: YES COLOR FLOW: YES TDS: PORTABLE: YES DEFINITY: BUBBLE STUDY: DIAGNOSIS: NEW ATRIAL FIBRILLATION, CONGESTIVE HEART FAILURE CARDIAC HISTORY: CATHERIZATION: NO SURGERY: NO PROSTHETIC VALVE: NO PACEMAKER: NO MEASUREMENTS (cm) DIASTOLIC (NORMALS) SYSTOLIC (NORMALS) IVSd 1.3 (0.6-1.2) LA Diam 3.9 (1.9-4.0) LVEF 42% LVIDd 6.4 (3.5-5.7) LVIDs 5.1 (2.0-3.5) %FS 21% LVPWd 1.3 (0.6-1.2) Ao Diam 3.2 (2.0-3.7) 2 DIMENSIONAL ASSESSMENT: RIGHT ATRIUM: NOT WELL SEEN LEFT ATRIUM: NORMAL RIGHT VENTRICLE: NOT WELL SEEN LEFT VENTRICLE: DEPRESSED EJECTION FRACTION TRICUSPID VALVE: NOT WELL SEEN MITRAL VALVE: MILD MITRAL REGURGITATION PULMONIC VALVE: NOT WELL SEEN AORTIC VALVE: NORMAL PERICARDIAL EFFUSION: NONE AORTIC ROOT: NORMAL LEFT VENTRICULAR WALL MOTION: UNABLE TO EVALUATE (POOR WINDOWS) DOPPLER/COLOR FLOW: SEE BELOW COMMENTS: 1. VERY POOR WINDOWS 2. OVERALL LEFT VENTRICULAR EJECTION FRACTION APPEARS MILDLY DEPRESSED TECHNOLOGIST: PAIGE MERIDA
[2022-07-09] MEDS ORDERED: predniSONE 20 MG TAB PO SCH (09:00)
[2022-07-09] MEDS ORDERED: POTASSIUM CL SA 10 MEQ TAB PO ONE (09:00)
--- NOTE | 2022-07-09 09:48 | P.DS ---
Admission Date: 07/05/22 Discharge Date: 07/09/22 Primary Care Provider: AYUSH Disposition: ROUTINE DISCHARGE Discharge Condition: GOOD Reason for Admission: Acute on chronic respiratory failure Consultations: 1. Pulmonary Medicine Hospital Course: DIAGNOSES: # Acute on Chronic Hypoxemic Hypercapnic Respiratory Failure - likely secondary to Acute on Chronic Systolic Congestive Heart Failure and Obesity Hypoventilation Syndrome # Paroxysmal Atrial Fibrillation with Rapid Ventricular Response (improved) # Chronic Obstructive Pulmonary Disease # Morbid Obesity - BMI 49.8 kg/m2 # Tobacco Use Disorder # Type II Diabetes Mellitus # Hypertension # Dyslipidemia # Gout # Benign Prostatic Hyperplasia # Microscopic Hematuria HOSPITAL COURSE: Mr. Maurice Cid is a pleasant 62 year old male with a past medical history significant for chronic systolic congestive heart failure, obesity hypoventilation syndrome, chronic obstructive pulmonary disease, morbid obesity, paroxysmal atrial fibrillation, type II diabetes mellitus, hypertension, dyslipidemia, gout, and benign prostatic hyperplasia who was admitted to the [facility] on 07/05/2022 for shortness of breath and hypoxia. He was admitted to the Medicine service. Upon further evaluation, he was found to have acute on chronic hypercapnic hypoxemic respiratory failure, which was thought to be secondary to acute on chronic systolic congestive heart failure and obesity hypoventilation syndrome. His hospital course was complicated by atrial fibrillation with rapid ventricular response. Cardiology was consulted and he was evaluated by Dr. Pacheco. He was treated with metoprolol and furosemide, with significant improvement in his symptoms. In regards to an ticoagulation, he was started on apixaban. Dr. Pacheco has cleared him for discharge with outpatient follow-up. Pulmonary Medicine was also consulted and he was evaluated by Dr. Zendejas. Dr. Zendejas has cleared him for discharge without outpatient follow-up. Throughout his hospital stay, his leukocytosis persisted. He did not appear to have an infection clinically. It seems most likely that this was steroid- induced. He was empirically started on antibiotics to cover pneumonia due to his radiographic abnormalities; however, on further evaluation, these changes seem to have represented pulmonary edema rather that pneumonia. Nevertheless, he was given a short course of antibiotics to empirically cover a respiratory infection. He was advised to schedule a follow-up CBC in about one week. I spoke with Dr. Zendejas, who stated that he will follow this up in clinic. Of note, his urinalysis returned positive for microscopic hematuria. He was advised that this can represent an underlying urologic malignancy, and he was advised to follow-up with his PCP for further evaluation. He verbalized understanding and agreed to make this appointment. On 07/09/2022, he was seen on morning rounds and deemed medically stable for discharge. He was discharged with instructions to schedule follow-up appointments with his PCP ([facility]), with Pulmonology (Dr. Zendejas), and with Cardiology (Dr. Pacheco). He was provided prescriptions for amoxicillin- clavulanate, apixaban, spironolactone, and acetazolamide. He will obtain refills of his home medications from the [facility] pharmacy. He was given the opportunity to ask questions and reported no further questions. Furthermore, all questions were answered to the best of my ability. A copy of this discharge summary will be sent to the above providers to facilitate continuity of care. Today, I personally spent 25 minutes on his case, of which greater than 50% of the time was spent in patient education, counseling, and coordination of care as described above. - Physical Exam General: Alert, In no apparent distress, Oriented x3 HEENT: Atraumatic, Mucous membr. moist/pink, Sclerae nonicteric Neck: JVD not distended (difficult to assess due to habitus) Respiratory: Crackles/rales (faint bibasilar) Cardiovascular: No murmurs, Edema (trace-1+ BLE), Irregular heart rate/rhythm Gastrointestinal: Normal bowel sounds, Soft and benign, No tenderness, No guarding Musculoskeletal: No clubbing Integumentary: No rashes Neurological: Normal speech, Normal affect Vital Signs/Physical Exam: Temp Pulse Resp BP Pulse Ox 97.2 F 79 16 125/62 98 07/09/22 08:00 07/09/22 08:00 07/09/22 08:00 07/09/22 08:00 07/09/22 08:00 Laboratory Data at Discharge: WBC 14.70 K/uL (4.3-10.9) H 07/09/22 03:21 Hgb 11.4 g/dL (13.6-17.9) L 07/09/22 03:21 Hct 35.2 % (39.6-49.0) L 07/09/22 03:21 Plt Count 384 K/uL (152-406) 07/09/22 03:21 Sodium 136 mmol/L (136-145) 07/09/22 03:21 Potassium 3.8 mmol/L (3.5-5.1) D 07/09/22 03:21 BUN 22 mg/dL (7-18) H 07/09/22 03:21 Creatinine 1.04 mg/dL (0.70-1.30) 07/09/22 03:21 Glucose 189 mg/dL (74-106) H 07/09/22 03:21 Phosphorus 3.4 mg/dL (2.5-4.9) 07/09/22 03:21 Magnesium 2.7 mg/dL (1.6-2.4) H 07/08/22 02:55 Total Bilirubin 0.4 mg/dL (0.2-1.0) 07/07/22 03:42 AST 40 U/L (15-37) H 07/07/22 03:42 ALT 45 U/L (16-61) 07/07/22 03:42 Alkaline Phosphatase 53 U/L (45-117) 07/07/22 03:42 Triglycerides 101 mg/dL (<150) 07/06/22 04:36 Cholesterol 120 mg/dL (<200) 07/06/22 04:36 HDL Cholesterol 56 mg/dL (40-60) 07/06/22 04:36 Cholesterol/HDL Ratio 2.14 07/06/22 04:36 Home Medications: Albuterol Sulfate [Proair Respiclick] 1 puff IH Q6HP PRN 10/30/19 Allopurinol 300 mg PO BEDTIME 10/30/19 Amlodipine [Norvasc*] 10 mg PO DAILY 10/30/19 Cholecalciferol (Vitamin D3) [Vitamin D 400 IU TAB*] 400 unit PO DAILY 10/30/19 Tamsulosin [Flomax*] 0.4 mg PO BEDTIME 10/30/19 Tiotropium [Spiriva Handihaler*] 18 mcg IH DAILY 10/30/19 Furosemide [Lasix*] 40 mg PO BIDL #60 tab 10/31/19 Metoprolol Tartrate [Lopressor*] 25 mg PO BID #60 tab 10/31/19 Acetaminophen [Tylenol Extra Strength] 500 mg PO BID 07/05/22 Aspirin 81 mg PO DAILY 07/05/22 Atorvastatin Calcium [Lipitor] 40 mg PO BEDTIME 07/05/22 Metformin HCl 500 mg PO BID 07/05/22 Potassium Bicarbonate/Cit AC [Klor-Con-Ef 25 Meq Tab Eff] 25 meq PO BID 07/05/22 Vit A/Vit C/Vit E/Zinc/Copper [Preservision Areds Softgel] 1 each PO 07/05/22 predniSONE [Deltasone*] 10 mg PO DAILY 07/05/22 Diphenhydramine HCl [Benadryl Allergy] 50 mg PO BEDTIME 07/06/22 Amox/Clavulanate [Augmentin 875-125 Tab] 875 mg PO BID 5 Days #10 tab 07/09/22 Apixaban [Eliquis] 5 mg PO BID #60 tab 07/09/22 Spironolactone [Aldactone*] 25 mg PO DAILY #30 tab 07/09/22 acetaZOLAMIDE [Diamox] 250 mg PO BID #60 tab 07/09/22 New Medications: Spironolactone [Aldactone*] 25 mg PO DAILY #30 tab Amox/Clavulanate [Augmentin 875-125 Tab] 875 mg PO BID 5 Days #10 tab acetaZOLAMIDE [Diamox] 250 mg PO BID #60 tab Apixaban [Eliquis] 5 mg PO BID #60 tab Physician Discharge Instructions: 1. Please call and schedule a follow-up appointment with your PCP ([facility]) in 3-5 days - Your white blood cell count was elevated, which we suspect is due to steroids - please have your blood counts rechecked in 1 week - There was a small amount of blood in your urine, which can be an early sign of bladder/kidney cancer - please discuss this with your PCP for further evaluation 2. Please call and schedule a follow-up appointment with Cardiology (Dr. Pacheco) in 5-7 days 3. Please call and schedule a follow-up appointment with Pulmonology (Dr. Zendejas) in 5-7 days Diet: AHA Activity: Ad estephania Followup: Robert Zendejas MD [ACTIVE - CAN ADMIT] - (Call to schedule appointment) Lester aPcheco MD [ACTIVE - CAN ADMIT] - (Call to schedule appointment) Time spent managing pt's care (in minutes): 25
--- NOTE | 2022-07-09 17:09 | EKG ---
Test Date: 2022-07-05 Test Time: 17:36:03 Banana Grader: YOUNG MEASUREMENT RESULTS: Intervals: Rate: 154 CO: QRSD: 90 QT: 296 QTc: 474 [place]: P: CO: QRS: 19 T: -29 INTERPRETIVE STATEMENTS: Atrial fibrillation with rapid ventricular response with premature ventricular or aberrantly conducted complexes Low voltage QRS Nonspecific ST abnormality, probably digitalis effect Abnormal ECG Compared to ECG 10/30/2019 18:36:53 Low QRS voltage now present ST (T wave) deviation now present Sinus tachycardia no longer present Electronically Signed On 07-09-22 17:00:16 HAND I BLOCKER by Lester Pacheco
--- NOTE | 2022-07-09 17:09 | EKG ---
Test Date: 2022-07-05 Test Time: 17:37:58 Commissioner Of Conciliation: YOUNG MEASUREMENT RESULTS: Intervals: Rate: 153 VT: QRSD: 86 QT: 278 QTc: 443 [place]: P: VT: QRS: 16 T: -29 INTERPRETIVE STATEMENTS: Atrial fibrillation with rapid ventricular response with premature ventricular or aberrantly conducted complexes Low voltage QRS Cannot rule out Inferior infarct, age undetermined Abnormal ECG Compared to ECG 10/30/2019 18:36:53 Low QRS voltage now present Myocardial infarct finding now present Sinus tachycardia no longer present Electronically Signed On 07-09-22 17:00:10 LEASE OPERATOR by Lester Pacheco
== END 2022-07-09 11:19 | disposition home or self-care (01) | DRG 871 ==
LOC: ER 17:31 → ERHOLD 20:09 → 4TH 21:26
PROVIDERS: ADMIT Hospitalist; ATTEND Internal Medicine
PROC: 5A09457 Assistance with Respiratory Ventilation, 24-96 Consecutive Hours, Continuous Positive Airway Pressure (ICD-10-PCS; principal; 2022-07-05)
DX: A41.9 Sepsis, unspecified organism (principal); I50.23 Acute on chronic systolic (congestive) heart failure; J96.21 Acute and chronic respiratory failure with hypoxia; J96.22 Acute and chronic respiratory failure with hypercapnia; Z68.43 Body mass index [BMI] 50.0-59.9, adult; E66.2 Morbid (severe) obesity with alveolar hypoventilation; J44.1 Chronic obstructive pulmonary disease with (acute) exacerbation; R65.20 Severe sepsis without septic shock; I11.0 Hypertensive heart disease with heart failure; I48.0 Paroxysmal atrial fibrillation; E78.5 Hyperlipidemia, unspecified; E11.9 Type 2 diabetes mellitus without complications; M10.9 Gout, unspecified; N40.0 Benign prostatic hyperplasia without lower urinary tract symptoms; D72.829 Elevated white blood cell count, unspecified; T38.0X5A Adverse effect of glucocorticoids and synthetic analogues, initial encounter; F17.200 Nicotine dependence, unspecified, uncomplicated; R31.29 Other microscopic hematuria; Z79.52 Long term (current) use of systemic steroids; Z79.84 Long term (current) use of oral hypoglycemic drugs; Z79.82 Long term (current) use of aspirin; Z99.81 Dependence on supplemental oxygen; Z90.49 Acquired absence of other specified parts of digestive tract; Z79.899 Other long term (current) drug therapy; Z85.038 Personal history of other malignant neoplasm of large intestine; Z91.199 Patient's noncompliance with other medical treatment and regimen due to unspecified reason; Z20.822 Contact with and (suspected) exposure to COVID-19
CPT/HCPCS: 0240U; 36415; 71045; 71275; 80048; 80053; 80061; 81001; 82533; 82805; 82947; 83605; 83735; 83880; 84100; 84145; 84439; 84443; 84484; 85025; 87040; 93005; 93306; 94010; 94660; 94760; 96372; 96374; 96375; 99285; J0456; J1650; J1720; J1940; J3535; J7050; J7512; J7613; J7614; J7644; Q9967

== ENCOUNTER 2023-01-22 15:36 | Emergency (ER) | payer OTHER ==
[2023-01-22] MEDS ORDERED: dilTIAZem HCL 25 MG/5 ML VIAL IV ONE ×2 (15:53→16:26)
[2023-01-22 16:20] LABS: Blood O2 Saturation 93.8 % (92-98.5)
[2023-01-22 16:21] LABS: Arterial Blood Carboxyhemoglob 2.5 % (0-1.5); Blood Gas Oxyhemoglobin 90.1 % (94-97)
[2023-01-22 16:31] LABS: Absolute Lymphocytes (CBC) 0.9 K/uL (0.7-4.9); Albumin 3.2 g/dL (3.4-5.0); Bilirubin Direct 0.2 mg/dL (0-0.2); Bilirubin Indirect, Calculated 0.4 mg/dL (0.2-0.8); Bilirubin Total 0.6 mg/dL (0.2-1.0); Hematocrit 22.9 % (39.6-49.0); Lymphocytes % 7.5 % (15.3-44.8); MCV 63.6 fL (80-100); MPV 7.1 fL (7.6-11.3); Magnesium 2.7 mg/dL (1.6-2.4); Platelets 466 thou/uL (152-406); Potassium 3.4 mEq/L (3.5-5.1); Protein, Total 7.7 g/dL (6.4-8.2); RBC Red Blood Cell Count 3.61 M/uL (4.33-5.43); Thyroid Stimulating Hormone 1.14 uIU/mL (0.358-3.740); Troponin High Sensitivity 26.2 pg/mL (<58.9)
--- NOTE | 2023-01-22 16:32 | RAD REPORT ---
EXAM DESCRIPTION: RAD - Chest Single View - 01/22/2023 4:08 pm CLINICAL HISTORY: DYSPNEA Chest pain. COMPARISON: <Comparisons> FINDINGS: Portable technique limits examination quality. Moderate bilateral pulmonary opacities are present compatible pulmonary edema. The heart is moderatel y enlarged in size. No displaced fractures.Small pleural effusion. IMPRESSION: Moderate CHF versus volume overload pattern.
--- NOTE | 2023-01-22 18:53 | RAD REPORT ---
EXAM DESCRIPTION: CTAbdomen Pelvis W Contrast - 01/22/2023 6:46 pm CLINICAL HISTORY: Abdominal pain. black stool, anemia COMPARISON: <Comparisons> TECHNIQUE: Biphasic CT imaging of the abdomen and pelvis was performed with 100 ml non-ionic IV cont rast. All CT scans are performed using dose optimization technique as appropriate and may include automated exposure control or mA/KV adjustment according to patient size. FINDINGS: Small right pleural effusion.Cholelithiasis. The liver, spleen, pancreas, adrenal glands and kidneys are within normal limits. Benign cysts is pre sent right kidney. No bowel obstruction, free air, free fluid or abscess. Moderate stool retention in the rectosigmoid colon. Nonvisualized appendix. No evidence of significant lymphadenopathy. Moderate lumbar degenerative changes. IMPRESSION: No acute intra-abdominal or pelvic finding. Cholelithiasis. Small right pleural effusion. Moderate rectosigmoid stool.
[2023-01-22] MEDS ORDERED: PANTOPRAZOLE 40 MG INJ ONE (19:01)
[2023-01-22 19:32] LABS: Anisocytosis 2+; Blood Morphology Comment NOTED (NOT SEEN); Platelet Estimate INCR; Poikilocytosis 2+; White Blood Cell Scan OK (OK)
--- NOTE | 2023-01-22 19:41 | ER ---
Nurse's Notes [facility] Name: Maurice Cid Jr Age: 62 yrs Sex: Male : 1960 Arrival Date: 01/22/2023 Time: 15:36 Bed 4 Private MD: Diagnosis: Anemia, unspecified;GI Bleed/ Gastrointestinal hemorrhage, unspecified;Shortness of breath Presentation: 01/22 15:38 Chief complaint: EMS states: "Toned out for SOB and chest pain that started 5 hrs ago mb9 and leg swelling that started a few days ago. On scene pt was 80% on 5 l/min via nasal cannula. Put pt on CPAP and oxygen increased to 96%. Gave 125 mg of Solu-Medrol via 20 g left AC.". Coronavirus screen: Vaccine status: Patient reports receiving the 2nd dose of the covid vaccine. Ebola Screen: No symptoms or risks identified at this time. Initial Sepsis Screen: Does the patient meet any 2 criteria? RR > 20 per min. HR > 90 bpm. Does the patient have a suspected source of infection? No. Patient's initial sepsis screen is negative. Risk Assessment: Do you want to hurt yourself or someone else? Patient reports no desire to harm self or others. Onset of symptoms was January 22, 2023. 15:38 Method Of Arrival: EMS: [facility] mb9 15:38 Acuity: EV 2 mb9 Triage Assessment: 15:40 General: Appears uncomfortable, Behavior is anxious. Pain: Complains of pain in chest mb9 Pain does not radiate. Pain currently is 10 out of 10 on a pain scale. Quality of pain is described as throbbing, Pain began suddenly, Is continuous. Neuro: Mitchell Agitation-Sedation Scale (RASS): 0 - Alert and Calm Level of Consciousness is awake, alert, obeys commands, Oriented to person, place, time, situation, Appropriate for age. Cardiovascular: Reports chest pain, shortness of breath, Heart tones S1 S2 present Rhythm is sinus tachycardia. Respiratory: Airway is patent Respiratory effort is labored, gasping, using tripod position, Respiratory pattern is tachypnea Breath sounds are diminished bilaterally. GI: Abdomen is round Bowel sounds present X 4 quads. Abd is soft and non tender X 4 quads. Patient currently denies diarrhea, epigastric pain, nausea. : No signs and/or symptoms were reported regarding the genitourinary system. Derm: Skin is fragile, is thin, Skin is dry, Skin is pale, Skin temperature is warm. Musculoskeletal: Swelling present in right leg and left leg. Historical: - Allergies: 15:48 No Known Allergies; mb9 - Home Meds: 15:48 Lasix Oral [Active]; Metformin Oral [Active]; Metoprolol Tartrate Oral [Active]; mb9 amlodipine oral [Active]; - PMHx: 15:48 asbestosis; Atrial fibrillation; Congestive heart failure; COPD; Hypertension; Diabetes mb9 mellitus; - PSHx: 15:48 None; mb9 - Immunization history:: Adult Immunizations up to date. - Social history:: Smoking status: Patient/guardian denies using tobacco. - Family history:: not pertinent. Screenin:52 [facility] ED Fall Risk Assessment (Adult) History of falling in the last 3 months, mb9 including since admission No falls in past 3 months (0 pts) Confusion or Disorientation No (0 pts) Intoxicated or Sedated No (0 pts) Impaired Gait No (0 pts) Mobility Assist Device Used No (0 pt) Altered Elimination No (0 pt) Score/Fall Risk Level 0 - 2 = Low Risk Oriented to surroundings, Maintained a safe environment, Educated pt \\T\\ family on fall prevention, incl call for assistance when getting out of bed. Abuse screen: Denies threats or abuse. Nutritional screening: No deficits noted. Tuberculosis screening: No symptoms or risk factors identified. Assessment: 15:52 Reassessment: see triage assessment. mb9 16:25 Reassessment: Patient and/or family updated on plan of care and expected duration. Pain mb9 level reassessed. Patient states feeling better. Patient states symptoms have improved. 17:25 Reassessment: Patient and/or family updated on plan of care and expected duration. Pain mb9 level reassessed. Patient states feeling better. Patient states symptoms have improved. 19:00 Reassessment: RT at bedside placing BIPAP. mb9 19:30 Reassessment: Patient and/or family updated on plan of care and expected duration. Pain mb9 level reassessed. Patient is alert, oriented x 3, equal unlabored respirations, skin warm/dry/pink. Patient states feeling better. Patient states symptoms have improved. 20:24 Reassessment: Report given to SUSAN Cain at [facility]. vc1 Vital Signs: 15:38 BP 117 / 75; Pulse 155; Resp 36; Pulse Ox 92% 2 lpm ; Weight 113.4 kg; Height 5 ft. 9 mb9 in. ; Pain 10/10; 15:57 BP 117 / 75; Pulse 143; Resp 24; Temp 98.4(O); Pulse Ox 96% on 3 lpm NC; mb9 16:18 BP 121 / 64; Pulse 135; Resp 26; Pulse Ox 94% on 3 lpm NC; mb9 16:46 BP 132 / 84; Pulse 111; Resp 24; Pulse Ox 91% on 3 lpm NC; mb9 17:25 BP 108 / 69; Pulse 120; Resp 24; Pulse Ox 95% on 3 lpm NC; mb9 20:12 BP 134 / 72; Pulse 108; Resp 18; Pulse Ox 100% on 40 lpm BiPAP; mb9 15:38 Body Mass Index 36.92 (113.40 kg, 175.26 cm) mb9 15:38 Pain Scale: Adult mb9 ED Course: 15:38 Patient arrived in ED. mb9 15:38 Gregor Vanessa MD is Attending Physician. rt 15:41 Triage completed. mb9 15:41 Arm band placed on. mb9 15:45 Inserted saline lock: 20 gauge in right forearm, using aseptic technique. Blood cm10 collected. 15:45 Initial lab(s) drawn, by me, sent to lab. First set of blood cultures drawn by me. cm10 15:52 Placed in gown. Bed in low position. Call light in reach. Side rails up X 1. Client mb9 placed on continuous cardiac and pulse oximetry monitoring. NIBP monitoring applied. environmental monitoring technician on. 15:53 Lilliana Royal RN is Primary Nurse. mb9 15:53 No provider procedures requiring assistance completed. Maintain EMS IV. Dressing mb9 intact. Good blood return noted. Site clean \\T\\ dry. Gauge \\T\\ site: 20 g left AC. 16:10 XRAY Chest (1 view) In Process Unspecified. EDMS 18:06 initiated transfer to [facility], pt was denied due to being on transfer closure. bd 18:48 CT Abd/Pelvis - IV Contrast Only In Process Unspecified. EDMS 20:26 Provided Education on: deep breaths, need for transfer. vc1 20:26 Patient transferred, IV remains in place. vc1 Administered Medications: 15:45 Drug: Diltiazem IVP 10 mg Route: IVP; Site: right antecubital; mb9 16:21 Follow up: Response: No adverse reaction mb9 16:18 Drug: Diltiazem IVP 10 mg Route: IVP; Site: right antecubital; mb9 16:48 Follow up: Response: No adverse reaction mb9 18:57 Drug: Pantoprazole IVP 40 mg Route: IVP; Site: right antecubital; mb9 Medication: 15:53 VIS not applicable for this client. mb9 Outcome: 19:39 ER care complete, transfer ordered by . rt 20:25 Transferred by ground EMS to other acute care facility: [facility] . vc1 20:25 Condition: stable 20:25 Instructed on the need for transfer. 20:41 Patient left the ED. mb9 Signatures: Dispatcher [employer] EDMS Malena Wu Vanessa, RN RN vc1 Lilliana Royal RN RN mb9 Gregor Vanessa MD MD rt Janet Gonzalez RN RN cm10
--- NOTE | 2023-01-22 19:41 | EDPHYS ---
Physician Documentation [facility] Name: Maurice Cid Jr Age: 62 yrs Sex: Male : 1960 Arrival Date: 01/22/2023 Time: 15:36 Bed 4 Private MD: ED Physician Gregor Vanessa HPI: 01/22 15:57 This 62 yrs old Male presents to ER via EMS with complaints of Shortness of breath. rt 15:57 Patient with COPD, CHF, A-fib presents to the ED with shortness of breath for the past rt 5 hours. Patient reports of bilateral lower extremity edema, sats were 80% on 5 L by nasal cannula, improved significantly with CPAP. Denies other acute complaints at this time, symptoms are moderate severity, no other aggravating or alleviating factors.. Historical: - Allergies: 15:48 No Known Allergies; mb9 - Home Meds: 15:48 Lasix Oral [Active]; Metformin Oral [Active]; Metoprolol Tartrate Oral [Active]; mb9 amlodipine oral [Active]; - PMHx: 15:48 asbestosis; Atrial fibrillation; Congestive heart failure; COPD; Hypertension; Diabetes mb9 mellitus; - PSHx: 15:48 None; mb9 - Immunization history:: Adult Immunizations up to date. - Social history:: Smoking status: Patient/guardian denies using tobacco. - Family history:: not pertinent. ROS: 15:57 Constitutional: Negative for fever, chills, and weight loss, Abdomen/GI: Negative for rt abdominal pain, nausea, vomiting, diarrhea, and constipation, MS/Extremity: Negative for injury and deformity, Skin: Negative for injury, rash, and discoloration, Neuro: Negative for headache, weakness, numbness, tingling, and seizure, Psych: Negative for depression, anxiety, suicide ideation, homicidal ideation, and hallucinations. 15:57 Cardiovascular: Positive for edema, Negative for chest pain. 15:57 Respiratory: Positive for dyspnea on exertion, orthopnea, shortness of breath. Exam: 15:57 Constitutional: This is a well developed, well nourished patient who is awake, alert, rt and in no acute distress. Head/Face: Normocephalic, atraumatic. Chest/axilla: Normal chest wall appearance and motion. Nontender with no deformity. No lesions are appreciated. Abdomen/GI: Soft, non-tender, with normal bowel sounds. No distension or tympany. No guarding or rebound. No evidence of tenderness throughout. Skin: Warm, dry with normal turgor. Normal color with no rashes, no lesions, and no evidence of cellulitis. Neuro: Awake and alert, GCS 15, oriented to person, place, time, and situation. Cranial nerves II-XII grossly intact. Motor strength 5/5 in all extremities. Sensory grossly intact. Cerebellar exam normal. Normal gait. Psych: Awake, alert, with orientation to person, place and time. Behavior, mood, and affect are within normal limits. 15:57 ECG was reviewed by the Attending Physician. 15:57 Respiratory: Bibasilar crackles, mild respiratory distress. 15:57 Musculoskeletal/extremity: 2+ edema to the bilateral lower extremities. Vital Signs: 15:38 BP 117 / 75; Pulse 155; Resp 36; Pulse Ox 92% 2 lpm ; Weight 113.4 kg; Height 5 ft. 9 mb9 in. ; Pain 10/10; 15:57 BP 117 / 75; Pulse 143; Resp 24; Temp 98.4(O); Pulse Ox 96% on 3 lpm NC; mb9 16:18 BP 121 / 64; Pulse 135; Resp 26; Pulse Ox 94% on 3 lpm NC; mb9 16:46 BP 132 / 84; Pulse 111; Resp 24; Pulse Ox 91% on 3 lpm NC; mb9 17:25 BP 108 / 69; Pulse 120; Resp 24; Pulse Ox 95% on 3 lpm NC; mb9 20:12 BP 134 / 72; Pulse 108; Resp 18; Pulse Ox 100% on 40 lpm BiPAP; mb9 15:38 Body Mass Index 36.92 (113.40 kg, 175.26 cm) mb9 15:38 Pain Scale: Adult mb9 MDM: 15:38 Patient medically screened. rt 21:44 Differential diagnosis: A-fib, acute blood loss anemia, dysrhythmia, sepsis. Data rt reviewed: vital signs, nurses notes, lab test result(s), EKG, radiologic studies. Consideration of Admission/Observation Patient requires transfer for GI coverage. Management of patient was discussed with the following: Automotive Painter Helper: Discussed with accepting GI and wage and salary specialist at [facility]. I considered the following discharge prescriptions or medication management in the emergency department Medications were administered in the Emergency Department. See MAR. Independent interpretation of the following test(s) in the Emergency Department X-Ray: My interpretation is No pneumothorax, interpretation of the x-ray images. Care significantly affected by the following chronic conditions: Atrial fibrillation, CHF, COPD. Counseling: I had a detailed discussion with the patient and/or guardian regarding the historical points, exam findings, and any diagnostic results supporting the discharge/admit diagnosis, lab results, radiology results, the need to transfer to another facility. Response to treatment: the patient's symptoms have markedly improved after treatment. 01/22 15:39 Order name: Basic Metabolic Panel; Complete Time: 16:32 rt 01/22 15:39 Order name: CBC with Diff rt 01/22 15:39 Order name: LFT's; Complete Time: 16:32 rt 01/22 15:39 Order name: Magnesium; Complete Time: 16:32 rt 01/22 15:39 Order name: NT PRO-BNP; Complete Time: 16:32 rt 01/22 15:39 Order name: Troponin HS; Complete Time: 16:32 rt 01/22 15:39 Order name: TSH; Complete Time: 16:32 rt 01/22 15:40 Order name: ABG; Complete Time: 16:32 rt 01/22 17:26 Order name: Type And Screen; Complete Time: 18:44 rt 01/22 17:31 Order name: Bb Add On bd 01/22 17:56 Order name: ABO/RH no charge; Complete Time: 18:05 EDNY 01/22 18:42 Order name: Packed RBCs (Additional Unit) EDNY 01/22 19:32 Order name: CBC Smear Scan EDNY 01/22 15:39 Order name: XRAY Chest (1 view); Complete Time: 16:32 rt 01/22 18:05 Order name: CT Abd/Pelvis - IV Contrast Only; Complete Time: 19:08 rt 01/22 18:48 Order name: BIPAP mb9 01/22 15:39 Order name: EKG; Complete Time: 15:40 rt 01/22 15:39 Order name: Cardiac monitoring; Complete Time: 15:41 rt 01/22 15:39 Order name: EKG - Nurse/Tech; Complete Time: 15:41 rt 01/22 15:39 Order name: IV Saline Lock; Complete Time: 15:41 rt 08 15:39 Order name: Labs collected and sent; Complete Time: 15:41 rt 01/22 15:39 Order name: O2 Per Protocol; Complete Time: 15:41 rt 01/22 15:39 Order name: O2 Sat Monitoring; Complete Time: 15:41 rt EC:57 Rate is 154 beats/min. Rhythm is irregularly irregular, A fib with No ectopy, Rate rt related ST and T wave changes. QRS interval is normal. QT interval is normal. No Q waves. Interpreted by me. Administered Medications: 15:45 Drug: Diltiazem IVP 10 mg Route: IVP; Site: right antecubital; mb9 16:21 Follow up: Response: No adverse reaction mb9 16:18 Drug: Diltiazem IVP 10 mg Route: IVP; Site: right antecubital; mb9 16:48 Follow up: Response: No adverse reaction mb9 18:57 Drug: Pantoprazole IVP 40 mg Route: IVP; Site: right antecubital; mb9 Disposition: 21:44 Critical Care:. rt Disposition Summary: 01/22/23 19:39 Transfer Ordered Transfer Location: Other Acute Care Facility rt Reason: Higher level of care rt Condition: Stable rt Problem: new rt Symptoms: have improved rt Accepting Physician: Rajendra Vora(01/22/23 20:41) [email or web address] Diagnosis - Anemia, unspecified rt - GI Bleed/ Gastrointestinal hemorrhage, unspecified rt - Shortness of breath rt Discharge Instructions: - Discharge Summary Sheet vc1 Forms: - SBAR form vc1 - Medication Reconciliation Form rt Critical care time excluding procedures: 21:44 Critical care time: Bedside Care: 35 minutes, Consultation: 10 minutes. Total time: 45 rt minutes Signatures: Dispatcher [employer] Lilliana Meza RN RN mb9 Gregor Vanessa MD MD rt Corrections: (The following items were deleted from the chart) 20:41 19:39 Rajendra Vora rt mb9
[2023-01-22 21:41] VITALS: TEMP 98.4
[2023-01-22 21:46] VITALS: BP 134/72; O2SAT 100
--- NOTE | 2023-01-23 17:30 | EKG ---
Test Date: 2023-01-22 Test Time: 15:35:14 Truck Guard: MIS MEASUREMENT RESULTS: Intervals: Rate: 154 DE: QRSD: 90 QT: 302 QTc: 483 [place]: P: DE: QRS: -16 T: 53 INTERPRETIVE STATEMENTS: Atrial fibrillation with rapid ventricular response Low voltage QRS Cannot rule out Anterior infarct, age undetermined Abnormal ECG Compared to ECG 09/10/2022 13:04:35 Myocardial infarct finding now present Ventricular premature complex(es) no longer present Electronically Signed On 01-23-23 17:27:43 CDT by Lester Pacheco
== END 2023-01-22 20:41 ==
LOC: ER 15:36
DX: D64.9 Anemia, unspecified (principal); K92.2 Gastrointestinal hemorrhage, unspecified; I50.9 Heart failure, unspecified; J44.9 Chronic obstructive pulmonary disease, unspecified; I10 Essential (primary) hypertension; I48.91 Unspecified atrial fibrillation; E11.9 Type 2 diabetes mellitus without complications
CPT/HCPCS: 85025; 80048; 36415; 86900; 83735; 86850; 86901; 80076; 86920 ×2; 84443; 84484; 83880; 74177; 71045; 82805; 36600; 94660; Q9967; C9113; 93005

== ENCOUNTER 2023-03-18 00:22 | Emergency (ER) | payer OTHER ==
[2023-03-18] MEDS ORDERED: MORPHINE 4 MG/ML SYR ONE ×2 (01:26→02:03)
[2023-03-18] MEDS ORDERED: NA CHLORIDE 0.9% 500 ML ONE (01:27)
[2023-03-18] MEDS ORDERED: ONDANSETRON 4 MG/2 ML VIAL ONE (01:27)
[2023-03-18] MEDS ORDERED: ASPIRIN 81 MG CHEWABLE TABLET ONE (01:27)
[2023-03-18] MEDS ORDERED: FAMOTIDINE 20 MG/2 ML VIAL IV ONE (01:27)
[2023-03-18 01:36] LABS: Absolute Lymphocytes (CBC) 1.1 K/uL (0.7-4.9); Hematocrit 28.7 % (39.6-49.0); Lymphocytes % 7.3 % (15.3-44.8); MCV 69.5 fL (80-100); MPV 8.3 fL (7.6-11.3); Platelets 345 thou/uL (152-406); RBC Red Blood Cell Count 4.13 M/uL (4.33-5.43)
[2023-03-18 01:37] LABS: Protime INR 1.15
[2023-03-18 01:45] LABS: ALT/SGPT 28 U/L (16-61); AST/SGOT 19 U/L (15-37); Albumin 2.9 g/dL (3.4-5.0); Alkaline Phosphatase 79 U/L (45-117); BUN Blood Urea Nitrogen 19 mg/dL (7-18); Bicarbonate 33 mEq/L (21-32); Bilirubin Total 0.3 mg/dL (0.2-1.0); Glomerular Filtration Rate 81 ml/min (=/>90); Glucose Level 113 mg/dL (74-106); Lipase 34 U/L (13-75); Magnesium 2.4 mg/dL (1.6-2.4); NT PRO-BNP 1167 pg/mL (<125); Potassium 4.2 mEq/L (3.5-5.1); Protein, Total 7.4 g/dL (6.4-8.2); Sodium Level 133 mEq/L (136-145); Troponin High Sensitivity 13.1 pg/mL (<58.9)
[2023-03-18 01:49] LABS: Bilirubin Direct < 0.1 mg/dL (0-0.2); Bilirubin Indirect, Calculated ND mg/dL (0.2-0.8)
--- NOTE | 2023-03-18 01:52 | ER ---
Nurse's Notes [facility] Name: Maurice Cid Jr Age: 62 yrs Sex: Male : 1960 Arrival Date: 03/18/2023 Time: 00:22 Bed 4 Private MD: Diagnosis: Chest pain, unspecified;Chronic atrial fibrillation;penitentiary (current) use of anticoagulants;Anemia, unspecified;Obesity, unspecified;Elevated white blood cell count;Combined systolic (congestive) and diastolic (congestive) heart failure;Calculus of gallbladder without cholecystitis with obstruction;Atelectasis;Pleural effusion in other conditions classified elsewhere;Epigastric abdominal tenderness Presentation: 03/18 00:35 Chief complaint: EMS states: CP AND SOB. Coronavirus screen: At this time, the client bp does not indicate any symptoms associated with coronavirus-19. Ebola Screen: No symptoms or risks identified at this time. Initial Sepsis Screen: Does the patient meet any 2 criteria? No. Patient's initial sepsis screen is negative. Does the patient have a suspected source of infection? No. Patient's initial sepsis screen is negative. Risk Assessment: Do you want to hurt yourself or someone else? Patient reports no desire to harm self or others. Onset of symptoms was March 18, 2023. 00:35 Method Of Arrival: EMS bp 00:35 Acuity: EV 3 bp Triage Assessment: 00:35 General: Appears uncomfortable, obese, unkempt, Behavior is cooperative, appropriate bp for age, anxious. Pain: Complains of pain in back and chest. EENT: No deficits noted. Neuro: No deficits noted. Cardiovascular: Rhythm is sinus rhythm. Respiratory: Reports shortness of breath. GI: No signs and/or symptoms were reported involving the gastrointestinal system. : No signs and/or symptoms were reported regarding the genitourinary system. Derm: No deficits noted. Musculoskeletal: No deficits noted. Historical: - Allergies: 01:21 No Known Allergies; bp - Home Meds: 01:21 amlodipine oral [Active]; Lasix Oral [Active]; Metoprolol Tartrate Oral [Active]; bp Metformin Oral [Active]; - PMHx: 01:21 asbestosis; Atrial fibrillation; colon cancer; Congestive heart failure; COPD; diabetes bp mellitus; Hypertension; - PSHx: 01:21 Ankle; Colon; knee; bp - Immunization history:: Adult Immunizations up to date. - Social history:: Smoking status: Patient reports the use of cigarette tobacco products, unknown amount. - Family history:: not pertinent. Screenin:58 [facility] ED Fall Risk Assessment (Adult) History of falling in the last 3 months, bp including since admission No falls in past 3 months (0 pts). Abuse screen: Denies threats or abuse. Denies injuries from another. Nutritional screening: No deficits noted. Tuberculosis screening: No symptoms or risk factors identified. Assessment: 01:28 Reassessment: Patient appears in no apparent distress at this time. Patient and/or jb4 family updated on plan of care and expected duration. Pain level reassessed. Patient is alert, oriented x 3, equal unlabored respirations, skin warm/dry/pink. 02:12 Reassessment: paged inside lab for assistance with blood cultures. jb4 02:30 Reassessment: Patient appears in no apparent distress at this time. Patient and/or jb4 family updated on plan of care and expected duration. Pain level reassessed. Patient is alert, oriented x 3, equal unlabored respirations, skin warm/dry/pink. 03:19 Reassessment: Patient appears in no apparent distress at this time. Patient and/or jb4 family updated on plan of care and expected duration. Pain level reassessed. Patient is alert, oriented x 3, equal unlabored respirations, skin warm/dry/pink. 03:59 Reassessment: REPORT TO EPI DAVIS AT [facility]. bp 04:00 Reassessment: Unable to obtain 2 blood culture sets. sent 1 pedi culture. ER provider jb4 instructed to cancel second set, antibiotics started. Vital Signs: 00:35 BP 119 / 68; Pulse 66; Resp 12; Temp 98.1; Pulse Ox 100% ; bp 02:00 BP 123 / 59; Pulse 62; Resp 18; Pulse Ox 100% on 4 lpm NC; jb4 03:00 BP 121 / 70; Pulse 68; Resp 16; Pulse Ox 100% on 4 lpm NC; jb4 04:01 BP 111 / 61; Pulse 71; Resp 16; Pulse Ox 100% ; bp ED Course: 00:23 Patient arrived in ED. rv1 00:27 Zechariah Talamantes MD is Attending Physician. jose g 00:35 Arm band placed on. bp 00:37 Sofia, Frank, RN is Primary Nurse. bp 00:47 XRAY Chest (1 view) In Process Unspecified. EDMS 01:10 Inserted saline lock: 22 gauge in left forearm, using aseptic technique. Blood bp collected. 01:21 Triage completed. bp 02:16 Initiated transfer with Anamaria at the [facility]. rv1 02:44 CT Chest For PE Angio In Process Unspecified. EDMS 02:44 CT Abd/Pelvis - IV Contrast Only In Process Unspecified. EDMS 03:55 US Abdomen Limited In Process Unspecified. EDMS 03:58 No provider procedures requiring assistance completed. Patient transferred, IV remains bp in place. 03:58 Patient has correct armband on for positive identification. Bed in low position. Call bp light in reach. Side rails up X2. Administered Medications: 01:19 Not Given (Duplicate Order): ns 0.9% 500 ml IV at bolus once jose g 01:19 Not Given (Duplicate Order): ns 0.9% 1000 ml IV at 125 ml/hr continuous jose g 01:20 Drug: morphine IVP or IV 4 mg IVP once over 4 mins Route: IVP; Infused Over: 4 mins; bp Site: left forearm; 04:00 Follow up: Response: No adverse reaction bp 01:20 Drug: Ondansetron IVP 4 mg IVP once; over 2 minutes Route: IVP; Site: left forearm; bp 04:00 Follow up: Response: No adverse reaction bp 01:20 Drug: Famotidine IVP 20 mg IVP once; dilute with 10 mL 0.9% NaCl; give over 2 minutes bp Route: IVP; Site: left forearm; 04:00 Follow up: Response: No adverse reaction bp 01:20 Drug: Aspirin PO Chewable Tablet 162 mg PO once Route: PO; bp 03:59 Follow up: Response: No adverse reaction bp 01:52 Drug: Furosemide IVP 40 mg IVP once; give over 2 minutes Route: IVP; Site: left forearm;bp 04:00 Follow up: Response: No adverse reaction bp 01:52 Drug: Levalbuterol Inhalation 2.5 mg Inhalation once Route: Inhalation; bp 01:52 Drug: Ipratropium Inhalation Aerosol 0.5 mg Inhalation once Route: Inhalation; bp 01:52 Drug: MethylPrednisoLONE IVP 125 mg IVP once Route: IVP; Site: left forearm; bp 03:59 Follow up: Response: No adverse reaction bp 04:10 Drug: levofloxacin IVPB 500 mg 100 ml IVPB once over 60 mins Volume: 100 ml; Route: jb4 IVPB; Infused Over: 60 mins; Site: left forearm; Outcome: 01:51 ER care complete, transfer ordered by MD. araiza 03:58 Transferred by ground EMS to [facility] Transfer form completed. bp 03:58 Condition: stable 03:58 Instructed on the need for transfer, 04:12 Patient left the ED. jb4 Signatures: Dispatcher [employer] EDZechariah Velazquez MD MD cha Bryson, James, RN RN jb4 Frank Black RN RN Jena Garcia rv1
--- NOTE | 2023-03-18 01:52 | EDPHYS ---
Physician Documentation [facility] Name: Maurice Cid Jr Age: 62 yrs Sex: Male : 1960 Arrival Date: 03/18/2023 Time: 00:22 Bed 4 Private MD: ED Physician Zechariah Talamantes HPI: 03/18 00:32 This 62 yrs old Male presents to ER via Unassigned with complaints of CP/ ABD PAIN. jose g 00:32 The patient or guardian reports chest pain that is located primarily in the substernal jose g area, anterior chest wall, bilaterally. Onset: just prior to arrival. The patient presents with abdominal pain in the upper abdomen, abdominal distention. Onset: The symptoms/episode began/occurred 1 day(s) ago. The pain does not radiate. The symptoms do not radiate. Associated signs and symptoms: Pertinent positives: nausea. Modifying factors: The symptoms are alleviated by nothing, the symptoms are aggravated by nothing. Associated signs and symptoms: Pertinent positives: abdominal pain, nausea. Historical: - Allergies: 01:21 No Known Allergies; bp - Home Meds: 01:21 amlodipine oral [Active]; Lasix Oral [Active]; Metoprolol Tartrate Oral [Active]; bp Metformin Oral [Active]; - PMHx: 01:21 asbestosis; Atrial fibrillation; colon cancer; Congestive heart failure; COPD; diabetes bp mellitus; Hypertension; - PSHx: 01:21 Ankle; Colon; knee; bp - Immunization history:: Adult Immunizations up to date. - Social history:: Smoking status: Patient reports the use of cigarette tobacco products, unknown amount. - Family history:: not pertinent. ROS: 00:32 Constitutional: Negative for fever, chills, and weight loss, Eyes: Negative for injury, jose g pain, redness, and discharge, ENT: Negative for injury, pain, and discharge, Neck: Negative for injury, pain, and swelling, Cardiovascular: Negative for chest pain, palpitations, and edema, Back: Negative for injury and pain, : Negative for injury, bleeding, discharge, and swelling, MS/Extremity: Negative for injury and deformity, Skin: Negative for injury, rash, and discoloration, Neuro: Negative for headache, weakness, numbness, tingling, and seizure, Psych: Negative for depression, anxiety, suicide ideation, homicidal ideation, and hallucinations, Allergy/Immunology: Negative for hives, rash, and allergies, Endocrine: Negative for neck swelling, polydipsia, polyuria, polyphagia, and marked weight changes, Hematologic/Lymphatic: Negative for swollen nodes, abnormal bleeding, and unusual bruising, 00:32 Respiratory: Positive for cough, shortness of breath, at rest. 00:32 Abdomen/GI: Positive for abdominal pain, nausea, Exam: 00:32 Constitutional: This is a well developed, well nourished patient who is awake, alert, jose g and in no acute distress. Head/Face: Normocephalic, atraumatic. Eyes: Pupils equal round and reactive to light, extra-ocular motions intact. Lids and lashes normal. Conjunctiva and sclera are non-icteric and not injected. Cornea within normal limits. Periorbital areas with no swelling, redness, or edema. ENT: Nares patent. No nasal discharge, no septal abnormalities noted. Tympanic membranes are normal and external auditory canals are clear. Oropharynx with no redness, swelling, or masses, exudates, or evidence of obstruction, uvula midline. Mucous membranes moist. Neck: Trachea midline, no thyromegaly or masses palpated, and no cervical lymphadenopathy. Supple, full range of motion without nuchal rigidity, or vertebral point tenderness. No Meningismus. Chest/axilla: Normal chest wall appearance and motion. Nontender with no deformity. No lesions are appreciated. Cardiovascular: Regular rate and rhythm with a normal S1 and S2. No gallops, murmurs, or rubs. Normal PMI, no JVD. No pulse deficits. Respiratory: Lungs have equal breath sounds bilaterally, clear to auscultation and percussion. No rales, rhonchi or wheezes noted. No increased work of breathing, no retractions or nasal flaring. Back: No spinal tenderness. No costovertebral tenderness. Full range of motion. Male : Normal genitalia with no discharge or lesions. Skin: Warm, dry with normal turgor. Normal color with no rashes, no lesions, and no evidence of cellulitis. MS/ Extremity: Pulses equal, no cyanosis. Neurovascular intact. Full, normal range of motion. Neuro: Awake and alert, GCS 15, oriented to person, place, time, and situation. Cranial nerves II-XII grossly intact. Motor strength 5/5 in all extremities. Sensory grossly intact. Cerebellar exam normal. Normal gait. Psych: Awake, alert, with orientation to person, place and time. Behavior, mood, and affect are within normal limits. 00:32 Abdomen/GI: Inspection: distension, Bowel sounds: active, Palpation: moderate abdominal tenderness, in the right upper quadrant and left upper quadrant, Liver: no appreciated palpable abnormalities, Hernia: not appreciated, 00:32 Musculoskeletal/extremity: DVT Exam: No signs of deep vein thrombosis. no pain, no swelling, no tenderness, negative Homans' sign noted on exam, no appreciated bluish discoloration, no erythema, no increased warmth, 01:22 ECG was reviewed by the Attending Physician. jose g Vital Signs: 00:35 BP 119 / 68; Pulse 66; Resp 12; Temp 98.1; Pulse Ox 100% ; bp 02:00 BP 123 / 59; Pulse 62; Resp 18; Pulse Ox 100% on 4 lpm NC; jb4 03:00 BP 121 / 70; Pulse 68; Resp 16; Pulse Ox 100% on 4 lpm NC; jb4 04:01 BP 111 / 61; Pulse 71; Resp 16; Pulse Ox 100% ; bp MDM: 00:27 Patient medically screened. jose g 00:36 Differential diagnosis: abnormal EKG, acute pericarditis, chest wall pain, jose g Cholelithiasis costochondritis, esophagitis, gastroesophageal reflux disease (GERD), herpes zoster, myocarditis, pancreatitis, pneumothorax, pulmonary embolus, stable angina, thoracic aortic disection, appendicitis, bowel obstruction, gastritis, Hepatitis, Mesenteric ischemia or infarction, non-specific abd pain, pancreatitis, Peptic Ulcer Disease, Perf. Duodenal Ulcer, Ureterolithiasis. HEART Score: History: Moderately Suspicious (1), ECG: Non specific repolarization disturbance / LBTB / PM (1), Age: > 45 and < 65 years (1), Risk Factors: > or = 3 Risk factors for atherosclerotic disease (2), [Hypercholesterolemia] [Hypertension] [+ Family HX] [Obesity] Troponin: < or = 1 x Normal Limit (0). The patient was given aspirin in the Emergency Department. CINDI Risk Score: 1 - Three or more CAD risk factors, TOTAL SCORE = 1. Data reviewed: vital signs, nurses notes, lab test result(s), EKG, radiologic studies, CT scan, plain films. Consideration of Admission/Observation Escalation of care including admission/observation considered. I considered the following discharge prescriptions or medication management in the emergency department Medications were administered in the Emergency Department. See MAR. Independent interpretation of the following test(s) in the Emergency Department EKG: See my EKG interpretation above. Test considered but Not performed: Ultrasound NO ABD USG. 03/18 00:32 Order name: Basic Metabolic Panel; Complete Time: 02:15 [facility] 03/18 00:32 Order name: CBC with Diff [facility] 03/18 00:32 Order name: LFT's; Complete Time: 02:15 [facility] 03/18 00:32 Order name: Magnesium; Complete Time: 02:15 [facility] 03/18 00:32 Order name: NT PRO-BNP; Complete Time: 02:15 [facility] 03/18 00:32 Order name: PT-INR; Complete Time: 01:47 [facility] 03/18 00:32 Order name: Troponin HS; Complete Time: 02:15 [facility] 03/18 00:32 Order name: Lipase; Complete Time: 02:15 [facility] 03/18 00:32 Order name: COVID-19 SARS RT PCR; Complete Time: 02:38 [facility] 03/18 00:32 Order name: Flu; Complete Time: 02:38 [facility] 03/18 00:32 Order name: Urinalysis w/ reflexes [facility] 03/18 01:42 Order name: CBC Smear Scan EDAL 03/18 01:49 Order name: Blood Culture Adult (2) [facility] 03/18 01:49 Order name: Lactate w/ 2H reflex if indic. [facility] 03/18 00:32 Order name: XRAY Chest (1 view) [facility] 03/18 00:32 Order name: CT Chest For PE Angio [facility] 03/18 00:32 Order name: CT Abd/Pelvis - IV Contrast Only [facility] 03/18 03:31 Order name: US Abdomen Limited [facility] 03/18 00:32 Order name: EKG; Complete Time: 00:33 [facility] 03/18 00:32 Order name: Cardiac monitoring; Complete Time: 01:08 [facility] 03/18 00:32 Order name: EKG - Nurse/Tech; Complete Time: 01:20 [facility] 03/18 00:32 Order name: IV Saline Lock; Complete Time: 01:08 [facility] 03/18 00:32 Order name: Labs collected and sent; Complete Time: 01:08 [facility] 03/18 00:32 Order name: O2 Per Protocol; Complete Time: : jose g 03/18 00:32 Order name: O2 Sat Monitoring; Complete Time: jose g 03/18 01:20 Order name: Oxygen: 2 LITERS; Complete Time: : [facility] EC: Rate is 68 beats/min. Rhythm is irregularly irregular. QRS [place] is Normal. VA interval jose g is normal. QRS interval is normal. QT interval is normal. No Q waves. T waves are Normal. No ST changes noted. Clinical impression: Atrial Fibrillation and No evidence of ischemia. Interpreted by me. Reviewed by me. Administered Medications: 01: Not Given (Duplicate Order): ns 0.9% 500 ml IV at bolus once jose g :19 Not Given (Duplicate Order): ns 0.9% 1000 ml IV at 125 ml/hr continuous jose g 01:20 Drug: morphine IVP or IV 4 mg IVP once over 4 mins Route: IVP; Infused Over: 4 mins; bp Site: left forearm; 04:00 Follow up: Response: No adverse reaction bp 01:20 Drug: Ondansetron IVP 4 mg IVP once; over 2 minutes Route: IVP; Site: left forearm; bp 04:00 Follow up: Response: No adverse reaction bp 01:20 Drug: Famotidine IVP 20 mg IVP once; dilute with 10 mL 0.9% NaCl; give over 2 minutes bp Route: IVP; Site: left forearm; 04:00 Follow up: Response: No adverse reaction bp 01:20 Drug: Aspirin PO Chewable Tablet 162 mg PO once Route: PO; bp 03:59 Follow up: Response: No adverse reaction bp 01:52 Drug: Furosemide IVP 40 mg IVP once; give over 2 minutes Route: IVP; Site: left forearm;bp 04:00 Follow up: Response: No adverse reaction bp 01:52 Drug: Levalbuterol Inhalation 2.5 mg Inhalation once Route: Inhalation; bp 01:52 Drug: Ipratropium Inhalation Aerosol 0.5 mg Inhalation once Route: Inhalation; bp 01:52 Drug: MethylPrednisoLONE IVP 125 mg IVP once Route: IVP; Site: left forearm; bp 03:59 Follow up: Response: No adverse reaction bp 04:10 Drug: levofloxacin IVPB 500 mg 100 ml IVPB once over 60 mins Volume: 100 ml; Route: jb4 IVPB; Infused Over: 60 mins; Site: left forearm; Disposition Summary: 03/18/23 01:51 Transfer Ordered Notes: Transfer Location: [facility] jose g Reason: Higher level of care jose g Condition: Fair jose g Problem: new jose g Symptoms: have improved jose g Accepting Physician: TO UT(03/18/23 04:12) jb4 Diagnosis - Chest pain, unspecified jose g - Chronic atrial fibrillation jose g - termite control servicer (current) use of anticoagulants jose g - Anemia, unspecified jose g - Obesity, unspecified jose g - Elevated white blood cell count jose g - Combined systolic (congestive) and diastolic (congestive) heart failure jose g - Calculus of gallbladder without cholecystitis with obstruction jose g - Atelectasis jose g - Pleural effusion in other conditions classified elsewhere jose g - Epigastric abdominal tenderness jose g Forms: - Medication Reconciliation Form jose g - SBAR form jose g Signatures: Dispatcher [employer] EDZechariah Velazquez MD MD cha Bryson, James, RN RN jb4 Frank Black RN RN bp Corrections: (The following items were deleted from the chart) 02:19 01:51 TO [facility] jose g jose g 03:32 02:19 TO [facility] jose g jose g 03:32 03:32 TO [facility] jose g jose g 04:12 03:32 TO UT jose g jb4
[2023-03-18] MEDS ORDERED: IPRATROPIUM BROM 0.5MG/2.5ML ONE (01:55)
[2023-03-18] MEDS ORDERED: LEVALBUTEROL 1.25 MG/3 ML NEB ONE (01:55)
[2023-03-18] MEDS ORDERED: METHYLPREDNISOLONE 125 MG INJ ONE (01:55)
[2023-03-18] MEDS ORDERED: FUROSEMIDE 20 MG/ 2ML VIAL ONE (01:55)
[2023-03-18] MEDS ORDERED: Levofloxacin500mg IV 500 MG/100 ML BAG IV ONE (02:11)
[2023-03-18 04:35] LABS: Blood Morphology Comment NOTED (NOT SEEN); White Blood Cell Scan OK (OK)
[2023-03-18 04:36] LABS: Anisocytosis 3+; Hypochromasia 2+; Ovalocytes 2+; Platelet Estimate ADEQ; Teardrop Cell 1+
[2023-03-18 04:41] LABS: Specific Gravity 1.012 (1.005-1.030); Urine Bilirubin NEGATIVE (Negative); Urine Blood Negative (Negative); Urine Clarity Clear (Clear); Urine Color Colorless (Yellow); Urine Glucose 4+ (Over) (Negative); Urine Protein NEGATIVE (Negative); Urine Urobilinogen Normal (Normal); Urine pH 7.5 (5.0-7.0)
[2023-03-18 05:35] VITALS: TEMP 98.1; O2SAT 100
[2023-03-18 05:39] VITALS: BP 111/61
--- NOTE | 2023-03-18 09:39 | RAD REPORT ---
EXAM DESCRIPTION: US - Abdomen Exam Limited - 03/18/2023 3:53 am CLINICAL HISTORY: ABD PAIN TECHNIQUE: Real-time and bennett scale sonographic imaging of the gallbladder and common bile duct COMPARISON: Correlation is made with a prior CT of the abdomen and pelvis FINDINGS: Gallbladder: Cholelithiasis with gallstone in the neck of the gallbladder measuring approx imately 1 cm. No gallbladder wall thickening or pericholecystic fluid. Common bile duct: 4.5 mm in diameter. IMPRESSION: Cholelithiasis with gallstone in the neck of the gallbladder. No ultrasound signs of acute cholecystitis or biliary ductal dilatation. Electronically signed by: Vincent Coreas MD 03/18/2023 4:50 AM CDT Due to temporary technical issues with the PACS/Fluency reporting system, reports are being signed by the in house radiologists without review as a courtesy to insure prompt reporting. The interpreting radiologist is fully responsible for the content of the report.
--- NOTE | 2023-03-18 09:53 | RAD REPORT ---
EXAM DESCRIPTION: CT - Chest For Pe Angio - 03/18/2023 6:53 am CLINICAL HISTORY: 62 years Male CHEST PAIN. TECHNIQUE: Following the administration of intravenous contrast, multiple high-resolution axial imag es of the chest were performed followed by sagittal and coronal reconstructed images. Axial, coronal and sagittal and coronal oblique MIP images were also performed. The CT study is performed according to ALARA (as low as reasonably achievable) or ALARA/IMAGE GENTLY, with automatic adjustment of mA and /or kV according to patient size. Performed on: 03/18/2023 at 2:30 AM COMPARISON: CT chest performed on 07/05/[address] abdomen and pelvis performed on 01/22/2023 FINDINGS: There is suboptimal contrast opacification of the pulmonary arteries on this examination . The pulmonary artery trunk and main pulmonary arteries enhance homogeneously without evidence of in tra-arterial filling defects. Evaluation of the segmental and subsegmental pulmonary arteries is limi raquel for pulmonary emboli on this examination. The thoracic aorta is normal in caliber and contour. Th ere is no evidence of aortic aneurysm or aortic dissection. The lungs are well-expanded. There is scattered atelectasis and/or fibrosis in the inferior hemithora brayan. There is mild hazy groundglass opacification in the lower lobes which may be due to mild edema o r inflammatory changes. There is no pneumothorax. There is a very small right pleural effusion and tr arely left pleural effusion. The central airways are patent. The heart is top normal in size. There is no pericardial effusion. There is no reflux of contrast int o the hepatic veins to suggest right heart strain.The RV/LV ratio is within normal limits. There is no evidence of hilar, mediastinal or axillary lymphadenopathy. No acute osseous abnormality is identified. There are degenerative changes along the thoracic spine. The visualized upper abdominal structures are unremarkable. The thyroid gland is normal in size and configuration as visualized. IMPRESSION: 1. Suboptimal contrast opacification of the pulmonary arteries on this examination. Th e pulmonary artery trunk and main pulmonary arteries enhance homogeneously without evidence of intra- arterial filling defects. Evaluation of the segmental and subsegmental pulmonary arteries is limited for pulmonary emboli on this examination. 2. No evidence of aortic aneurysm or aortic dissection. 3. Scattered atelectasis and/or fibrosis in the inferior hemithoraces. There is mild hazy groundgla ss opacification in the lower lobes which may be due to mild edema or inflammatory changes. 4. Very small right pleural effusion and trace left pleural effusion. Electronically signed by: Tiffanie Gan DO 03/18/2023 3:28 AM CDT Due to temporary technical issues with the PACS/Fluency reporting system, reports are being signed by the in house radiologists without review as a courtesy to insure prompt reporting. The interpreting radiologist is fully responsible for the content of the report.
--- NOTE | 2023-03-18 10:17 | RAD REPORT ---
EXAM DESCRIPTION: CT - Abdomen Pelvis W Contrast - 03/18/2023 6:54 am CLINICAL HISTORY: ABD PAIN TECHNIQUE: Contiguous axial images obtained through the abdomen and pelvis following the uneventful administration of IV contrast. Coronal and sagittal reformatted images were provided. This exam was performed according to our departmental dose-optimization program, which includes autom ated exposure control, adjustment of the mA and/or kV according to patient size and/or use of iterati ve reconstruction technique. COMPARISON: January 22 FINDINGS: Lung bases: Small bilateral pleural effusions, larger on the right with atelectatic change s in the lung bases. Liver: Nonspecific perihepatic fluid, also present on the prior examination and which may reflect hep atic dysfunction. Gallbladder and biliary system: Multiple gallstones. Gallstone in the neck of the gallbladder, or cys tic duct.. Pancreas: Unremarkable Spleen: Unremarkable Adrenals: Unremarkable Kidneys: Normal renal cortical enhancement. No calculi. No hydronephrosis. Incidental right renal cys ts. GI: No obstruction. No appreciable mucosal thickening. Appendix: No findings to suggest acute appendicitis. Urinary bladder: Unremarkable Reproductive: Unremarkable as visualized Lymph nodes: No pathologically enlarged lymph nodes. Peritoneum: No focal fluid collection. No free air. Vessels: No abdominal aortic aneurysm. Abdominal wall: Open left inguinal ring with no herniated segments of bowel. Nonspecific subcutaneous nodule dorsal to the sacrum, also present on the prior examination and which may represent sebaceous cyst. Bones: Unremarkable IMPRESSION: 1. Multiple gallstones. Gallstone in the neck of the gallbladder, or cystic duct. Cons ider further evaluation with gallbladder ultrasound. 2. Nonspecific perihepatic fluid, also present on the prior examination and which may reflect hepat ic dysfunction. 3. Small bilateral pleural effusions, larger on the right with atelectatic changes in the lung base s. Electronically signed by: Vincent Coreas MD 03/18/2023 3:18 AM CDT Due to temporary technical issues with the PACS/Fluency reporting system, reports are being signed by the in house radiologists without review as a courtesy to insure prompt reporting. The interpreting radiologist is fully responsible for the content of the report.
--- NOTE | 2023-03-18 10:28 | RAD REPORT ---
EXAM DESCRIPTION: RAD - Chest Single View - 03/18/2023 12:45 am CLINICAL HISTORY: 62 years Male ABDOMINAL DISTENTION TECHNIQUE: View of the chest. COMPARISON: No prior exams provided for comparison. FINDINGS: Possible small left pleural effusion again noted. Right basilar atelectasis. No pneumothor ax. Stable prominence of the cardiomediastinal silhouette. No acute osseous lesion. IMPRESSION: Prominent cardiomediastinal silhouette with a possible small left pleural effusion. Electronically signed by: Summer Thompson MD 03/18/2023 12:58 AM CDT Due to temporary technical issues with the PACS/Fluency reporting system, reports are being signed by the in house radiologists without review as a courtesy to insure prompt reporting. The interpreting radiologist is fully responsible for the content of the report.
--- NOTE | 2023-03-18 11:39 | EKG ---
Test Date: 2023-03-18 Test Time: 01:20:36 Net Architect: DARRIUS MEASUREMENT RESULTS: Intervals: Rate: 68 AK: QRSD: 106 QT: 432 QTc: 459 [place]: P: AK: QRS: 83 T: 79 INTERPRETIVE STATEMENTS: Atrial fibrillation Low voltage QRS Cannot rule out Anterior infarct, age undetermined Abnormal ECG Compared to ECG 03/06/2023 12:45:57 Ventricular premature complex(es) no longer present Myocardial infarct finding still present Electronically Signed On 03-18-23 11:38:39 CDT by Lester Pacheco
== END 2023-03-18 04:12 ==
LOC: ER 00:22
DX: R07.89 Other chest pain (principal); I48.20 Chronic atrial fibrillation, unspecified; Z79.01 Long term (current) use of anticoagulants; D64.9 Anemia, unspecified; D72.829 Elevated white blood cell count, unspecified; I50.40 Unspecified combined systolic (congestive) and diastolic (congestive) heart failure; K80.21 Calculus of gallbladder without cholecystitis with obstruction; J98.11 Atelectasis; J91.8 Pleural effusion in other conditions classified elsewhere; R10.816 Epigastric abdominal tenderness; E66.9 Obesity, unspecified; E11.9 Type 2 diabetes mellitus without complications; I10 Essential (primary) hypertension; Z20.822 Contact with and (suspected) exposure to COVID-19
CPT/HCPCS: 93005; 87040; 85025; 80048; 36415; 83735; 85610; 80076; 83605; 81003; 84484; 83690; 83880; 87635; 87804 ×2; 71275; 74177; 71045; 76705; 96375; 96374; 99285; Q9967; J1940; J7614; J7644; J2930; J2405; J7040

== ENCOUNTER 2024-10-12 23:02 | Emergency (ER) | payer OTHER ==
[2024-10-12] MEDS ORDERED: METHYLPREDNISOLONE 125 MG INJ ONE (23:40)
[2024-10-12] MEDS ORDERED: LEVALBUTEROL 1.25 MG/3 ML NEB ONE (23:40)
[2024-10-12] MEDS ORDERED: dilTIAZem HCL 25 MG/5 ML VIAL IV ONE (23:41)
[2024-10-12] MEDS ORDERED: NA CHLORIDE 0.9% 100 ML ONE (23:41)
[2024-10-13] LABS: Absolute Basophils 0.1 K/uL (0-0.5); Absolute Eosinophils 0.1 K/uL (0-0.5); Absolute Lymphocytes (CBC) 1.6 K/uL (0.7-4.9); Absolute Neutrophil 12.1 K/uL (1.8-8.0); Basophils % 0.4 % (0-1.3); Eosinophils % 0.6 % (0-4.4); Hematocrit 31.7 % (39.6-49.0); Hemoglobin 9.8 g/dL (13.6-17.9); Lymphocytes % 10.8 % (15.3-44.8); MCH 20.2 pg (27.0-35.0); MCV 65.1 fL (80-100); MPV 7.2 fL (7.6-11.3); Monocytes % 6.5 % (3.3-12.3); Neutrophils % 81.7 % (41.7-73.7); Nucleated Red Blood Cells % 0.1 % (0-0); Platelets 600 thou/uL (152-406); RBC Red Blood Cell Count 4.87 M/uL (4.33-5.43); Red Cell Distribution Width 18.9 % (12.1-15.2)
[2024-10-13 00:12] LABS: ALT/SGPT 25 U/L (16-61); Albumin 3.5 g/dL (3.4-5.0); Albumin/Globulin Ratio 0.7 (1.1-1.8); Alkaline Phosphatase 83 U/L (45-117); Anion Gap 9.7 mEq/L (5.0-15.0); BUN Blood Urea Nitrogen 33 mg/dL (7-18); Bicarbonate 37 mEq/L (21-32); Bilirubin Total 0.3 mg/dL (0.2-1.0); Creatine Phosphokinase 116 U/L (39-308); Glomerular Filtration Rate 49 ml/min (=/>90); Glucose Level 260 mg/dL (74-106); Lipase 36 U/L (13-75); Magnesium 2.3 mg/dL (1.6-2.4); NT PRO-BNP 2778 pg/mL (<125); PT Prothrombin Time 14.8 SECONDS (10-13.0); Potassium 3.7 mEq/L (3.5-5.1); Protein, Total 8.5 g/dL (6.4-8.2); Protime INR 1.32; Sodium Level 130 mEq/L (136-145); Troponin High Sensitivity 25.1 pg/mL (<58.9)
[2024-10-13 00:15] LABS: AST/SGOT < 10 U/L (15-37); Bilirubin Direct < 0.2 mg/dL (0-0.2); Bilirubin Indirect, Calculated 0.1 mg/dL (0.2-0.8)
[2024-10-13 00:22] LABS: Blood Gas Oxyhemoglobin 92.9 % (94-97); Blood Gas THB 10.6 g/dl (12-18)
[2024-10-13 01:33] LABS: Blood Morphology Comment NOTED (NOT SEEN); Hypochromasia 1+; Microcytosis 1+; Platelet Estimate ADEQ; Polychromasia 2+; White Blood Cell Scan OK (OK)
[2024-10-13] MEDS ORDERED: INSULIN REGULAR (HUMAN) 100 UNIT/ML ONE ×2 (02:20→05:33)
--- NOTE | 2024-10-13 05:31 | ER ---
Nurse's Notes [facility] Name: Maurice Cid Jr Age: 64 yrs Sex: Male : 1960 Arrival Date: 10/12/2024 Time: 23:02 Bed 6 Private MD: Diagnosis: Unspecified atrial flutter;COPD/ Chronic obstructive pulmonary disease with (acute) exacerbation;Acute on chronic systolic (congestive) heart failure;Atrial fibrillation with RVR;Physical debility Presentation: 10/12 23:05 Chief complaint: EMS states: SHORTNESS OF BREATH . USES OXYGEN AT HOME 6 LITER NASAL ha1 CANULA. ELEVATED HEART RATE. 23:05 Coronavirus screen: Client denies travel out of the [place] in the last 14 days. Ebola ha1 Screen: No symptoms or risks identified at this time. Initial Sepsis Screen: Does the patient meet any 2 criteria? No. Patient's initial sepsis screen is negative. Does the patient have a suspected source of infection? No. Patient's initial sepsis screen is negative. Risk Assessment: Do you want to hurt yourself or someone else? Patient reports no desire to harm self or others. Onset of symptoms was October 12, 2024. 23:05 Method Of Arrival: EMS: [facility] ha1 23:05 Acuity: EV 2 ha1 Triage Assessment: 23:23 General: Appears uncomfortable, Behavior is cooperative. Pain: Denies pain. Neuro: ha1 Level of Consciousness is awake, alert, obeys commands, Oriented to person, place, time, situation. Cardiovascular: Reports shortness of breath, Respiratory: Reports shortness of breath. Historical: - Allergies: 23:05 No Known Allergies; ha1 - Home Meds: 23:05 amlodipine oral [Active]; ha1 - PMHx: 23:05 asbestosis; Atrial fibrillation; colon cancer; Congestive heart failure; COPD; diabetes ha1 mellitus; Hypertension; - PSHx: 23:05 Ankle; Colon; knee; ha1 - Immunization history:: Adult Immunizations up to date. - Infectious Disease History:: Denies. - Social history:: Smoking status: Patient/guardian denies using tobacco, the patient reports quitting approximately 5 years ago. - Family history:: not pertinent. Screenin/07 00:22 [facility] ED Fall Risk Assessment (Adult) History of falling in the last 3 months, cp4 including since admission No falls in past 3 months (0 pts) Confusion or Disorientation No (0 pts) Intoxicated or Sedated No (0 pts) Impaired Gait No (0 pts) Mobility Assist Device Used No (0 pt) Altered Elimination No (0 pt) Score/Fall Risk Level 0 - 2 = Low Risk Oriented to surroundings, Maintained a safe environment, Assessed \T\ reinforced patient's understanding of fall precautions, Hourly rounding (assess needs \T\ fall precautionary measures) done. Abuse screen: Denies threats or abuse. Denies injuries from another. Nutritional screening: No deficits noted. Tuberculosis screening: No symptoms or risk factors identified. Assessment: 00:22 General: Appears in no apparent distress. uncomfortable, Behavior is calm, cooperative, cp4 appropriate for age. Pain: Denies pain. Neuro: Level of Consciousness is awake, alert, obeys commands, Oriented to person, place, time, situation. Cardiovascular: Patient's skin is warm and dry. Respiratory: Airway is patent Respiratory effort is even, unlabored, Respiratory pattern is regular. GI: No signs and/or symptoms were reported involving the gastrointestinal system. : No signs and/or symptoms were reported regarding the genitourinary system. EENT: No signs and/or symptoms were reported regarding the EENT system. Derm: No signs and/or symptoms reported regarding the dermatologic system. Musculoskeletal: No signs and/or symptoms reported regarding the musculoskeletal system. 04:26 General: Appears in no apparent distress. uncomfortable, Behavior is calm, cooperative. al5 Pain: Complains of pain in back. Neuro: Level of Consciousness is awake, alert, obeys commands, Oriented to person, place, time, situation. Cardiovascular: Capillary refill < 3 seconds Patient's skin is warm and dry. Rhythm is atrial fibrillation with rapid ventricular response. Respiratory: Airway is patent Respiratory effort is even, unlabored, Respiratory pattern is regular, symmetrical. GI: No signs and/or symptoms were reported involving the gastrointestinal system. : No signs and/or symptoms were reported regarding the genitourinary system. EENT: No signs and/or symptoms were reported regarding the EENT system. Derm: Skin is intact, Skin is pink, warm \T\ dry. normal. Musculoskeletal: No signs and/or symptoms reported regarding the musculoskeletal system. 05:16 Reassessment: Patient appears in no apparent distress at this time. No changes from al5 previously documented assessment. Patient and/or family updated on plan of care and expected duration. Pain level reassessed. Patient is alert, oriented x 3, equal unlabored respirations, skin warm/dry/pink. Vital Signs: 10/12 23:05 BP 109 / 70; Pulse 158; Resp 22 S; Temp 98.4(O); Pulse Ox 99% on 6 lpm NC; Weight ha1 166.92 kg; Height 5 ft. 11 in. ; 23:15 BP 102 / 76; Pulse 153; Resp 20; Pulse Ox 100% ; al5 10/13 00:26 BP 112 / 73; Pulse 117; Resp 22; Pulse Ox 99% on 6 lpm NC; cp4 01:30 BP 107 / 81; Pulse 110; Resp 20; Pulse Ox 97% on 6 lpm NC; cp4 02:30 BP 117 / 65; Pulse 111; Resp 20; Pulse Ox 97% on 6 lpm NC; cp4 03:30 BP 119 / 82; Pulse 117; Resp 20; Pulse Ox 98% on 6 lpm NC; cp4 04:00 BP 106 / 72; Pulse 150; Resp 19; Pulse Ox 98% on 6 lpm NC; al5 04:30 BP 123 / 78; Pulse 121; Resp 16; Pulse Ox 98% on NC; al5 05:00 BP 126 / 85; Pulse 116; Resp 14; Pulse Ox 95% on 6 lpm BiPAP; al5 05:30 BP 133 / 77; Pulse 112; Resp 16; Pulse Ox 97% on 6 lpm NC; al5 06:00 BP 117 / 70; Pulse 103; Resp 18; Pulse Ox 99% on 6 lpm NC; al5 10/12 23:05 Body Mass Index 51.33 (166.92 kg, 180.34 cm) ha1 [place] Coma Score: 05:33 Eye Response: spontaneous(4). Motor Response: obeys commands(6). Verbal Response: sp4 oriented(5). Total: 15. ED Course: 10/12 23:05 Patient arrived in ED. vk 23:13 Bran Ryan MD is Attending Physician. sp4 23:21 Triage completed. ha1 23:22 Initial lab(s) drawn, by me, sent to lab. rk3 23:46 Inserted saline lock: 20 gauge in right antecubital area, using aseptic technique. rk3 Blood collected. Flushed with 10 mL NS. 10/13 00:09 XRAY CXR (1 view) In Process Unspecified. EDMS 00:22 Zakia Skelton is Primary Nurse. cp4 00:22 No provider procedures requiring assistance completed. Maintain EMS IV. Dressing cp4 intact. Good blood return noted. Site clean \T\ dry. Gauge \T\ site: 20 LFA. Oxygen administration via nasal cannula \T\ 6L/min. 00:22 Bed in low position. Call light in reach. Side rails up X2. cp4 01:57 initiated transfer with [facility] spoke with Rayshawn. vk 03:43 called for update regarding bed placement spoke with rayshawn stated he never received vk fax, Refaxed documents to [facility] to the following number [phone]. 04:12 [place] home health care coordinator called stated he received faxed documents, stated he will start vk process for possible transfer and to wait for callback. 04:28 Provided Education on: need for admission/transfer, update on plan of care. al5 04:28 Arm band placed on right wrist. al5 05:25 Moses Roger MD is Hospitalizing Provider. sp4 06:00 patient was accepted to the [facility] ER to Corina Barry\T\0529 accepting admin vk clara \T\0529 / initiated transport with [facility] spoke with lissy patient was accepted. 06:20 Patient transferred, IV remains in place. al5 Administered Medications: 10/12 23:52 Drug: Diltiazem IVP 20 mg IVP once; Over 2 minutes Route: IVP; Site: right antecubital; cp4 10/13 06:16 Follow up: Response: No adverse reaction al5 10/12 23:52 Drug: Diltiazem IV 5 mg/hr IV at calculated rate See Administration Instructions; cp4 (standard dilution 125 mg diltiazem mixed in 125 mL NS; final concentration 1mg/mL). Recommended max rate 15 mg/hr; Titrate 5 mg/hr as often as every 15 minutes to achieve goal (see titration policy); Goal parameter HR less than 100 bpm Route: IV; Rate: calculated rate; Site: right antecubital; 10/13 06:41 Follow up: Response: No adverse reaction; IV Status: Infusion continued upon transfer al5 10/12 23:52 Drug: MethylPrednisoLONE IVP 125 mg IVP once Route: IVP; Site: left antecubital; cp4 10/13 06:16 Follow up: Response: No adverse reaction al5 10/12 23:52 Drug: Levalbuterol Inhalation 1.25 mg Inhalation once Route: Inhalation; cp4 10/13 02:23 Drug: Insulin Regular Human IVP 5 units IVP once {Co-Signature: al5 (Kelsey Camacho cp4 RN).} Route: IVP; Site: left antecubital; 06:15 Follow up: Response: No adverse reaction; Blood sugar is unchanged al5 05:40 Drug: Diazepam PO 5 mg PO once Route: PO; al5 06:16 Follow up: Response: No adverse reaction; Anxiety decreased al5 05:41 Drug: morphine IVP or IV 4 mg IVP once over 4 mins Route: IVP; Infused Over: 4 mins; al5 Site: right antecubital; 06:15 Follow up: Response: No adverse reaction; Pain is decreased al5 05:41 Drug: Ondansetron IVP 4 mg IVP once; over 2 minutes Route: IVP; Site: right antecubital;al5 06:16 Follow up: Response: No adverse reaction al5 05:43 Drug: Insulin Regular Human IVP 5 units IVP once {Co-Signature: ha1 Lyubov Corbin RN).} al5 Route: IVP; Site: right antecubital; 06:16 Follow up: Response: No adverse reaction al5 Medication: 00:22 VIS not applicable for this client. cp4 Outcome: 05:31 Decision to Hospitalize by Provider. sp4 05:41 ER care complete, transfer ordered by . sp4 06:20 Transferred by [facility] al5 06:20 Condition: stable 06:20 Instructed on the need for transfer, 06:41 Patient left the ED. al5 Signatures: Dispatcher [employer] EDMS Lyubov Mclain RN RN ha1 Potepalov, Sergey, MD MD sp4 Zakia Skelton cp4 Stefany Bobo Amanda, RN RN al5 Barrington Scott rk3 Kelsey Camacho RN al5 Lyubov Mclain RN ha1
--- NOTE | 2024-10-13 05:31 | EDPHYS ---
Physician Documentation [facility] Name: Maurice Cid Jr Age: 64 yrs Sex: Male : 1960 Arrival Date: 10/12/2024 Time: 23:02 Bed 6 Private MD: ED Physician Bran Ryan HPI: 10/13 01:33 This 64 yrs old Male presents to ER via EMS with complaints of Shortness Of sp4 Breath. 05:22 64-year-old male presents with acute shortness of breath and palpitations. Tachycardic sp4 on arrival.. 05:33 Patient has past medical history of congestive heart failure, COPD, hypertension, sp4 atrial fibrillation, asbestosis. Last admission was 09/11/2022 for A-fib with RVR patient's medications include albuterol sulfate, tamsulosin, tiotropium, acetaminophen, aspirin, atorvastatin metformin, potassium, PreserVision, diphenhydramine, apixaban 5 mg p.o. twice daily, spironolactone 25 daily, acetazolamide 250 mg p.o. twice daily, senna cobalamin 1000 mg daily, fluticasone salmeterol, furosemide 80 mg twice daily, metoprolol 50 twice daily, amiodarone 400 p.o. twice daily. Historical: - Allergies: 10/12 23:05 No Known Allergies; ha1 - Home Meds: 23:05 amlodipine oral [Active]; ha1 - PMHx: 23:05 asbestosis; Atrial fibrillation; colon cancer; Congestive heart failure; COPD; diabetes ha1 mellitus; Hypertension; - PSHx: 23:05 Ankle; Colon; knee; ha1 - Immunization history:: Adult Immunizations up to date. - Infectious Disease History:: Denies. - Social history:: Smoking status: Patient/guardian denies using tobacco, the patient reports quitting approximately 5 years ago. - Family history:: not pertinent. ROS: 10/13 05:22 Constitutional: Negative for fever, chills, and weight loss, positive for shortness sp4 of breath and palpitations. All other systems are negative, Exam: 05:33 Constitutional: This is a well developed, well nourished patient who is awake, sp4 morbidly obese male, signs of physical debility, signs of CHF and COPD Head/Face: Normocephalic, atraumatic. Eyes: Pupils equal round and reactive to light, extra-ocular motions intact. Lids and lashes normal. Conjunctiva and sclera are not injected. Cornea within normal limits. Periorbital areas with no swelling, redness, or edema. ENT: Nares patent. No nasal discharge, no septal abnormalities noted. Tympanic membranes are normal and external auditory canals are clear. Oropharynx with no redness, swelling, or masses, exudates, or evidence of obstruction, uvula midline. Mucous membranes moist. Neck: Trachea midline, no thyromegaly or masses palpated, and no cervical lymphadenopathy. Supple, full range of motion without nuchal rigidity, or vertebral point tenderness. Chest/axilla: Normal chest wall appearance and motion. Nontender with no deformity. No lesions are appreciated. Cardiovascular: Rapid irregular tachycardia consistent with atrial flutter. No gallops, murmurs, or rubs. Normal PMI positive jugular venous distention. No pulse deficits. Respiratory: Lungs have equal breath sounds bilaterally, clear to auscultation and percussion. No rales, rhonchi or wheezes noted. No increased work of breathing, no retractions or nasal flaring. Abdomen/GI: Soft, with normal bowel sounds. No distension or tympany. No guarding or rebound. No evidence of tenderness throughout. Back: No spinal tenderness. No costovertebral tenderness. Skin: Warm, dry with normal turgor. Normal color with no rashes, no lesions, and no evidence of cellulitis. MS/ Extremity: Pulses equal, no cyanosis. Neurovascular intact. Full, normal range of motion. Neuro: Awake and alert, GCS 15, oriented to person, place, time, and situation. Cranial nerves II-XII grossly intact. Motor strength 5/5 in all extremities. Sensory grossly intact. Psych: Awake, alert, with orientation to person, place and time. Behavior, mood, and affect are within normal limits 05:33 ECG was reviewed by the Attending Physician. EKG at 2308 atrial flutter 2: 1 AV conduction ventricular rate 159, Vital Signs: 10/12 23:05 BP 109 / 70; Pulse 158; Resp 22 S; Temp 98.4(O); Pulse Ox 99% on 6 lpm NC; Weight ha1 166.92 kg; Height 5 ft. 11 in. ; 23:15 BP 102 / 76; Pulse 153; Resp 20; Pulse Ox 100% ; al5 10/13 00:26 BP 112 / 73; Pulse 117; Resp 22; Pulse Ox 99% on 6 lpm NC; cp4 01:30 BP 107 / 81; Pulse 110; Resp 20; Pulse Ox 97% on 6 lpm NC; cp4 02:30 BP 117 / 65; Pulse 111; Resp 20; Pulse Ox 97% on 6 lpm NC; cp4 03:30 BP 119 / 82; Pulse 117; Resp 20; Pulse Ox 98% on 6 lpm NC; cp4 04:00 BP 106 / 72; Pulse 150; Resp 19; Pulse Ox 98% on 6 lpm NC; al5 04:30 BP 123 / 78; Pulse 121; Resp 16; Pulse Ox 98% on NC; al5 05:00 BP 126 / 85; Pulse 116; Resp 14; Pulse Ox 95% on 6 lpm BiPAP; al5 05:30 BP 133 / 77; Pulse 112; Resp 16; Pulse Ox 97% on 6 lpm NC; al5 06:00 BP 117 / 70; Pulse 103; Resp 18; Pulse Ox 99% on 6 lpm NC; al5 10/12 23:05 Body Mass Index 51.33 (166.92 kg, 180.34 cm) ha1 [place] Coma Score: 05:33 Eye Response: spontaneous(4). Motor Response: obeys commands(6). Verbal Response: sp4 oriented(5). Total: 15. MDM: 10/12 23:16 Medical Screening Exam initiated sp4 10/13 01:33 ED course: CLINICAL HISTORY: Chest pain. COMPARISON: XR Chest 03/18/2023. TECHNIQUE: XR sp4 CHEST 1 VIEW 10/12/2024 11:14 PM CDT FINDINGS: The heart is borderline in size. Lungs are clear without consolidation, atelectasis, mass or edema. There is no pleural effusion. There is no pneumothorax. There are no acute osseous findings. IMPRESSION: Clear lungs. . 05:38 Differential diagnosis: Anxiety Reaction asthma, Bronchitis CHF exacerbation, Chronic sp4 Obstructive Pulmonary Disease pneumonia, pulmonary edema, Pulmonary Embolism. Data reviewed: vital signs, nurses notes, EMS record, lab test result(s), EKG, radiologic studies, plain films. Consideration of Admission/Observation Escalation of care including admission/observation considered. ED course: Patient accepted [place] the [facility] [place] 0 5:38 AM. 10/12 23:14 Order name: BMP; Complete Time: sp4 10/12 23:14 Order name: Blood Culture Adult (2) sp4 10/12 23:14 Order name: CBC with Diff; Complete Time: 02: sp4 10/12 23:14 Order name: CPK; Complete Time: sp4 10/12 23:14 Order name: Hepatic Function; Complete Time: sp4 10/12 23:14 Order name: Lipase; Complete Time: sp4 10/12 23:14 Order name: Magnesium; Complete Time: sp4 10/12 23:14 Order name: NT PRO-BNP; Complete Time: sp4 10/12 23:14 Order name: PT-INR; Complete Time: sp4 10/12 23:14 Order name: Ptt, Activated; Complete Time: sp4 10/12 23:14 Order name: Troponin HS; Complete Time: sp4 10/12 23:14 Order name: ABG; Complete Time: sp4 10/13 00:09 Order name: CBC Smear Scan; Complete Time: 02:03 EDMS 10/13 05:39 Order name: Glucose, Ancillary Testing EDMI 10/12 23:14 Order name: XRAY CXR (1 view) sp4 10/12 23:14 Order name: EKG; Complete Time: 23:14 4 10/12 23:14 Order name: Cardiac monitoring; Complete Time: : sp4 10/12 23:14 Order name: EKG - Nurse/Tech; Complete Time: 23: sp4 10/12 23:14 Order name: IV Saline Lock; Complete Time: : sp4 10/12 23:14 Order name: Labs collected and sent; Complete Time: : sp4 10/12 23:14 Order name: O2 Per Protocol; Complete Time: : sp4 10/12 23:14 Order name: O2 Sat Monitoring; Complete Time: 23: sp4 10/13 05:24 Order name: Accucheck Blood Glucose; Complete Time: 05: sp4 10/13 05:42 Order name: EKG - Nurse/Tech; Complete Time: 05:48 sp4 EC/06 23:08 Rate is 159 beats/min. Rhythm is irregular, A flutter with Rapid ventricular response. sp4 QRS [place] is Normal. No ST changes noted. Clinical impression: No evidence of ischemia. Interpreted by me. Reviewed by me. Administered Medications: 23:52 Drug: Diltiazem IVP 20 mg IVP once; Over 2 minutes Route: IVP; Site: right antecubital; [facility] 10/13 06:16 Follow up: Response: No adverse reaction ct5 10/12 23:52 Drug: Diltiazem IV 5 mg/hr IV at calculated rate See Administration Instructions; cp4 (standard dilution 125 mg diltiazem mixed in 125 mL NS; final concentration 1mg/mL). Recommended max rate 15 mg/hr; Titrate 5 mg/hr as often as every 15 minutes to achieve goal (see titration policy); Goal parameter HR less than 100 bpm Route: IV; Rate: calculated rate; Site: right antecubital; 10/13 06:41 Follow up: Response: No adverse reaction; IV Status: Infusion continued upon transfer al10/12 23:52 Drug: MethylPrednisoLONE IVP 125 mg IVP once Route: IVP; Site: left antecubital; [facility] 10/13 06:16 Follow up: Response: No adverse reaction 10/12 23:52 Drug: Levalbuterol Inhalation 1.25 mg Inhalation once Route: Inhalation; 4 10/13 02:23 Drug: Insulin Regular Human IVP 5 units IVP once {Co-Signature: ilia5 (Kelsey Camacho cp4 RN).} Route: IVP; Site: left antecubital; 06:15 Follow up: Response: No adverse reaction; Blood sugar is unchanged al5 05:40 Drug: Diazepam PO 5 mg PO once Route: PO; al5 06:16 Follow up: Response: No adverse reaction; Anxiety decreased al5 05:41 Drug: morphine IVP or IV 4 mg IVP once over 4 mins Route: IVP; Infused Over: 4 mins; al5 Site: right antecubital; 06:15 Follow up: Response: No adverse reaction; Pain is decreased al5 05:41 Drug: Ondansetron IVP 4 mg IVP once; over 2 minutes Route: IVP; Site: right antecubital;al5 06:16 Follow up: Response: No adverse reaction al5 05:43 Drug: Insulin Regular Human IVP 5 units IVP once {Co-Signature: ha1 (Lyubov Mclain RN).} al5 Route: IVP; Site: right antecubital; 06:16 Follow up: Response: No adverse reaction al5 Disposition: 05:24 Critical Care:. sp4 22:37 Chart complete. sp4 Disposition Summary: 10/13/24 05:41 Transfer Ordered Notes: Transfer Location: [facility] sp4 Reason: Higher level of care sp4 Condition: Serious(10/13/24 05:41) sp4 Problem: new(10/13/24 05:41) sp4 Symptoms: have improved(10/13/24 05:41) sp4 Accepting Physician: [facility] attending physician(10/13/24 06:41) al5 Diagnosis - Unspecified atrial flutter(10/13/24 05:41) sp4 - COPD/ Chronic obstructive pulmonary disease with (acute) exacerbation(10/13/24 sp4 05:41) - Acute on chronic systolic (congestive) heart failure(10/13/24 05:41) sp4 - Atrial fibrillation with RVR sp4 - Physical debility sp4 Forms: - Medication Reconciliation Form sp4 - SBAR form sp4 Critical care time excluding procedures: 05:24 Critical care time: Bedside Care: 36 minutes, Consultation: 12 minutes, Family sp4 Intervention: 12 minutes. Total time: 60 minutes Signatures: Dispatcher [employer] EDLyubov Orozco RN RN ha1 Bran Ryan MD MD sp4 Zakia Skelton Amanda, RN RN al5 Kelsey Camacho RN5 Lyubov Mclain RN ha1 Corrections: (The following items were deleted from the chart) 05:40 05:31 Inpatient Admission sp4 sp4 05:40 05:31 Moses Roger sp4 sp4 05:40 05:31 Telemetry/MedSurg (observation) sp4 sp4 05:40 05:31 Stable sp4 sp4 05:40 05:31 new sp4 sp4 05:40 05:31 have improved sp4 sp4 05:40 05:31 Standard sp4 sp4 05:40 05:31 sp4 sp4 05:40 05:31 Unspecified atrial flutter sp4 sp4 05:40 05:31 Atrial flutter with a rapid ventricular response sp4 sp4 05:40 05:31 COPD/ Chronic obstructive pulmonary disease with (acute) exacerbation sp4 sp4 05:40 05:31 Acute on chronic systolic (congestive) heart failure sp4 sp4 06:41 05:41 [facility] attending physician sp4 al5
[2024-10-13] MEDS ORDERED: ONDANSETRON 4 MG/2 ML VIAL ONE (05:32)
[2024-10-13] MEDS ORDERED: MORPHINE 4 MG/ML SYR ONE (05:32)
[2024-10-13] MEDS ORDERED: DIAZEPAM 5 MG TABLET ONE (05:33)
--- NOTE | 2024-10-13 05:36 | RAD REPORT ---
CLINICAL HISTORY: Chest pain. COMPARISON: XR Chest 03/18/2023. TECHNIQUE: XR CHEST 1 VIEW 10/12/2024 11:14 PM CDT FINDINGS: The heart is borderline in size. Lungs are clear without consolidation, atelectasis, mass or edema. T here is no pleural effusion. There is no pneumothorax. There are no acute osseous findings. IMPRESSION: Clear lungs. Electronically signed by: Alessandro Abreu MD 10/13/2024 12:52 AM CDT RP Due to temporary technical issues with the PACS/[employer] reporting system, reports are being derek d by the in-house radiologist without review as a courtesy to ensure prompt reporting. The interpreting radiologist is fully responsible for the content of the report. Transcribed Date/Time: 10/13/2024 5:36 AM
[2024-10-13 13:24] VITALS: TEMP 98.4
[2024-10-13 13:44] VITALS: BP 117/70; O2SAT 99
--- NOTE | 2024-10-14 11:45 | EKG ---
Test Date: 2024-10-13 Test Time: 05:46:05 Rn Placement: LORI MEASUREMENT RESULTS: Intervals: Rate: 123 HI: QRSD: 108 QT: 374 QTc: 535 [place]: P: 258 HI: QRS: 80 T: 78 INTERPRETIVE STATEMENTS: Atrial flutter with variable AV block Low voltage QRS Abnormal ECG Compared to ECG 10/12/2024 23:08:08 Low QRS voltage now present Electronically Signed On 10-14-24 11:41:57 CDT by Cruzito Guzman
--- NOTE | 2024-10-14 11:46 | EKG ---
Test Date: 2024-10-12 Test Time: 23:08:08 Stitch Rubber: LORI MEASUREMENT RESULTS: Intervals: Rate: 159 TN: QRSD: 144 QT: 304 QTc: 494 [place]: P: 266 TN: QRS: 57 T: 83 INTERPRETIVE STATEMENTS: Atrial flutter with 2:1 AV conduction Nonspecific intraventricular block Abnormal ECG Compared to ECG 03/18/2023 01:20:36 Atrial fibrillation no longer present Myocardial infarct finding no longer present Electronically Signed On 10-14-24 11:42:11 CDT by Cruzito Guzman
== END 2024-10-13 06:41 ==
LOC: ER 23:02
DX: I48.92 Unspecified atrial flutter (principal); J44.1 Chronic obstructive pulmonary disease with (acute) exacerbation; I50.23 Acute on chronic systolic (congestive) heart failure; I48.91 Unspecified atrial fibrillation; E11.9 Type 2 diabetes mellitus without complications; I10 Essential (primary) hypertension; Z79.82 Long term (current) use of aspirin
CPT/HCPCS: 93005 ×2; 87040 ×2; 85025; 80048; 36415; 83735; 82550; 85610; 82947; 80076; 85730; 84484; 83690; 83880; 71045; 82805; 36600; J7614; J2919; J2405; J1815 ×2

== ENCOUNTER 2025-03-24 12:38 | Observation (INO) | payer OTHER ==
[2025-03-24 13:06] LABS: Absolute Lymphocytes (CBC) 1.3 K/uL (0.7-4.9); Hematocrit 35.8 % (39.6-49.0); Hemoglobin 11.1 g/dL (13.6-17.9); MCH 22.3 pg (27.0-35.0); MCHC 30.9 g/dL (32.0-36.0); MCV 72.1 fL (80-100); MPV 7.2 fL (7.6-11.3); Nucleated RBC Absolute Count 0.0 (0-0); Nucleated Red Blood Cells % 0.0 % (0-0); RBC Red Blood Cell Count 4.96 M/uL (4.33-5.43); White Blood Count 18.20 thou/uL (4.3-10.9)
[2025-03-24 13:13] LABS: PT Prothrombin Time 15.9 SECONDS (10-13.0); Protime INR 1.42
[2025-03-24 13:27] LABS: ALT/SGPT 26.0 U/L (16-61); AST/SGOT 15.0 U/L (15-37); Albumin 3.1 g/dL (3.4-5.0); Albumin/Globulin Ratio 0.7 (1.1-1.8); Alkaline Phosphatase 59.0 U/L (45-117); Anion Gap 12.4 mEq/L (5.0-15.0); BUN Blood Urea Nitrogen 51.0 mg/dL (7-18); Globulin 4.6 g/dL (2.3-3.5); Glucose Level 158.0 mg/dL (74-106); Magnesium 1.8 mg/dL (1.6-2.4); NT PRO-BNP 285.0 pg/mL (<125); Potassium 3.4 mEq/L (3.5-5.1); Troponin High Sensitivity 14.1 pg/mL (<58.9)
[2025-03-24] MEDS ORDERED: MIDODRINE HCL 5 MG TABLET ONE (13:38)
--- NOTE | 2025-03-24 13:49 | RAD REPORT ---
EXAMINATION: ONE VIEW CHEST XR CLINICAL INDICATION: CHEST PAIN TECHNIQUE: Frontal chest projection is submitted. Examination is limited by patient positioning and t echnique. COMPARISON: 02/16/2025 FINDINGS: Linear opacities in the right base may represent atelectasis or small area of infiltrate. Lungs other davis clear. The heart is upper limit of normal in size. No displaced fractures identified.
[2025-03-24] MEDS ORDERED: CEFEPIME 2 GM VIAL ONE (14:31)
[2025-03-24] MEDS ORDERED: NA CHLORIDE 0.9% 250 ML ONE (14:31)
[2025-03-24] MEDS ORDERED: VANCOMYCIN 1 GM/VIAL ONE (14:32)
[2025-03-24] MEDS ORDERED: NA CHLORIDE 0.9% 100 ML ONE (14:32)
--- NOTE | 2025-03-24 14:45 | EDPHYS ---
Physician Documentation [facility] Name: Maurice Cid Jr Age: 64 yrs Sex: Male : 1960 Arrival Date: 03/24/2025 Time: 12:38 Bed 2 Private MD: ED Physician Zechariah Talamantes HPI: 03/24 14:46 This 64 yrs old Male presents to ER via EMS with complaints of Shortness Of dr5 Breath. 14:46 The patient has shortness of breath at rest. Onset: The symptoms/episode began/occurred dr5 acutely. Patient is a 64-year-old male with history of atrial fibrillation on Eliquis, colon cancer, CHF, COPD, diabetes, COPD coming in for hypotension at clinic today. Patient reports that he woke up this morning feeling fine and while at clinic became short of breath and had episodes of hypotension in clinic with weakness. Patient reports he was recently hospitalized with pneumonia and severe sepsis. Patient was sent by EMS for further management... Historical: - Allergies: 12:43 No Known Allergies; jp5 - PMHx: 12:43 asbestosis; Atrial fibrillation; colon cancer; Congestive heart failure; COPD; diabetes jp5 mellitus; Hypertension; - PSHx: 12:43 Ankle; Colon; knee; jp5 - Immunization history:: Adult Immunizations up to date. - Infectious Disease History:: Denies. - Social history:: Smoking status: Patient denies any tobacco usage or history of. ROS: 14:46 Constitutional: as per hpi Eyes: Negative for injury, pain, redness, and discharge, dr5 ENT: Moist mucous membranes. Cardiovascular: Negative for chest pain, palpitations, and edema, Respiratory: Positive for shortness of breath with intermittent cough. Abdomen/GI: Negative for abdominal pain, nausea, vomiting, diarrhea, and constipation, Back: Negative for injury and pain, MS/Extremity: Negative for injury and deformity, Skin: Negative for injury, rash, and discoloration, Neuro: Negative for headache, weakness, numbness, tingling, and seizure, Psych: Negative for depression, anxiety, suicide ideation, homicidal ideation, and hallucinations, Exam: 14:46 Constitutional: This is a well developed, well nourished patient who is awake, alert, dr5 and in no acute distress. Head/Face: Normocephalic, atraumatic. Eyes: Pupils equal round and reactive to light, extra-ocular motions intact. Lids and lashes normal. Conjunctiva and sclera are non-icteric and not injected. Cornea within normal limits. Periorbital areas with no swelling, redness, or edema. Neck: Trachea midline, no thyromegaly or masses palpated, and no cervical lymphadenopathy. Supple, full range of motion without nuchal rigidity, or vertebral point tenderness. No Meningismus. Chest/axilla: Normal chest wall appearance and motion. Nontender with no deformity. No lesions are appreciated. Cardiovascular: Irregular irregular rate and rhythm with a normal S1 and S2. Normal PMI, no JVD. No pulse deficits. Respiratory: No rales, rhonchi or wheezes noted. No increased work of breathing, no retractions or nasal flaring. Lungs have equal breath sounds bilaterally, clear to auscultation except in RLL with rhonchi. Back: No spinal tenderness. No costovertebral tenderness. Full range of motion. Skin: Warm, dry with normal turgor. Normal color with no rashes, no lesions, and no evidence of cellulitis. MS/ Extremity: Pulses equal, no cyanosis. Neurovascular intact. Full, normal range of motion. Neuro: Awake and alert, GCS 15, oriented to person, place, time, and situation. Cranial nerves II-XII grossly intact. Motor strength 5/5 in all extremities. Sensory grossly intact. Cerebellar exam normal. Normal gait. Vital Signs: 12:41 BP 91 / 58; Pulse 102; Resp 16; Temp 98(O); Pulse Ox 99% on 6 lpm NC; Pain 0/10; jp5 13:30 BP 93 / 52; Pulse 105; Resp 16; Pulse Ox 99% on 6 lpm NC; jp5 14:30 BP 101 / 57; Pulse 65; Resp 16; Pulse Ox 99% on 6 lpm NC; jp5 15:30 BP 96 / 58; Pulse 87; Resp 16; Temp 98.2(O); Pulse Ox 99% on 6 lpm NC; Pain 0/10; jp5 12:41 Pain Scale: Adult jp5 15:30 Pain Scale: Adult jp5 MDM: 12:44 Medical Screening Exam initiated dr5 14:49 Differential diagnosis: Anemia asthma, Bronchitis Chronic Obstructive Pulmonary Disease dr5 Myocardial Infarction pneumonia, Sepsis. Antibiotic administration: Vancomycin and Cefepime. Data interpreted: monitoring tech: rate is 105 beats/min, rhythm is atrial fibrillation, Interpretation: atrial fibrillation, Pulse oximetry: on 6L(s) per nasal canula, is 99 %. Interpretation: normal. Data reviewed: vital signs, nurses notes, EMS record, lab test result(s), CBC, white blood cell count, hemoglobin, hematocrit, platelets, electrolytes, sodium, potassium, chloride, serum bicarbonate, BUN, creatinine, serum glucose, BNP, EKG, radiologic studies, plain films. Consideration of Admission/Observation Patient was admitted/placed on observation. Management of patient was discussed with the following: Hospitalist: Dr. Banerjee. I considered the following discharge prescriptions or medication management in the emergency department Medications were administered in the Emergency Department. See MAR. Independent interpretation of the following test(s) in the Emergency Department X-Ray: My interpretation is Independent trepidation of x-ray reveals possible pneumonia to right lower lobe. Test considered but Not performed: CT: CT CHEST considered but creatinine too elevated. Care significantly affected by the following chronic conditions: Diabetes, Hypertension, Congestive Heart Failure, Chronic Obstructive Pulmonary Disease, Cancer. Care significantly affected by the following Social Determinants of Health: Poor access to healthcare and/or lack of insurance, Poor access to transportation, Problems related to employment. Scoring Tools HEART Score: History: ECG: Age: Risk Factors: > or = 3 Risk factors for atherosclerotic disease (2), Troponin: Total Score = 3. Post IV fluid administration reassessment for Sepsis: Client not prescribed the 30 mL/kg IVF due to: concern for fluid overload. concern for heart failure. Focused Assessment performed: March 24, 2025 at 14:45 Heart: Irregular rhythm noted. S1,S2 auscultated. Lungs: Noted to be clear bilaterally. Capillary refill examination performed. Capillary refill noted to be brisk. Capillary refill noted to be < 2 seconds. Peripheral pulse evaluation performed. Radial Peripheral pulses noted to be 2+ slightly diminished. Skin examination performed. Skin noted to have normal turgor. Current vital signs reviewed: Yes. Passive leg raise examination performed. Counseling: I had a detailed discussion with the patient and/or guardian regarding the historical points, exam findings, and any diagnostic results supporting the discharge/admit diagnosis, the presence of at least one elevated blood pressure reading (>120/80) during this emergency department visit, lab results, radiology results, the need for further work-up and treatment in the hospital. Medication response: IVF (750ml total). Response to treatment: the patient's symptoms have markedly improved after treatment. ED course: Admission for pneumonia. Discussed with patient and agreeable plan. Elevated lactic acid at 2.5. Will repeat in 2 hours. Blood cultures drawn and antibiotics ordered. Patient has not had to systolic blood pressures less than 90 x 2 and lactic is not greater than 4 concerning for septic shock. Patient does not need high bolus of 30 mL per keg of crystalloid fluids at this time as well as patient has concerns for heart failure and fluid overload.. 16:34 ED course: Repeat lactic acid ordered and notified RN. She will draw it before patient dr5 moves upstairs.. 03/24 12:49 Order name: CBC with Diff; Complete Time: 13:24 dr5 03/24 12:49 Order name: Magnesium; Complete Time: 13:29 dr5 03/24 12:49 Order name: NT PRO-BNP; Complete Time: 13:29 dr5 03/24 12:49 Order name: PT-INR; Complete Time: 13:24 dr5 03/24 12:49 Order name: Troponin HS; Complete Time: 13:29 dr5 03/24 12:49 Order name: CMP; Complete Time: 13:29 dr5 03/24 13:27 Order name: Blood Culture Adult (2) dr5 03/24 13:27 Order name: Lactate w/ 2H reflex if indic.; Complete Time: 14:33 dr5 03/24 13:27 Order name: UA Rfx Erick Cult if indicated dr5 03/24 14:29 Order name: Ghost Lactate-NO COLLECT Timer; Complete Time: 16:32 EDMS 03/24 15:47 Order name: Basic Metabolic Panel EDMS 03/24 15:47 Order name: Basic Metabolic Panel EDMS 03/24 15:47 Order name: Basic Metabolic Panel EDMS 03/24 15:47 Order name: Basic Metabolic Panel EDMS 03/24 15:47 Order name: CBC with Automated Diff EDMS 03/24 15:47 Order name: CBC with Automated Diff EDMS 03/24 15:47 Order name: CBC with Automated Diff EDMS 03/24 15:47 Order name: CBC with Automated Diff EDMS 03/24 15:47 Order name: Magnesium EDMS 03/24 15:47 Order name: Magnesium EDMS 03/24 15:47 Order name: Phosphorus EDMS 03/24 15:47 Order name: Phosphorus EDMS 03/24 15:47 Order name: PTT, Activated Partial Thromb EDMS 03/24 15:47 Order name: PTT, Activated Partial Thromb EDMS 03/24 15:48 Order name: COVID-19 Ag + Flu A+B Ag EDMS 03/24 16:33 Order name: Lactate w/ 2H reflex if indic. dr5 03/24 17:08 Order name: Lactate w/ 2H reflex if indic.; Complete Time: 17:57 EDMS 03/24 12:49 Order name: XRAY Chest (1 view); Complete Time: 14:15 dr5 03/24 12:49 Order name: EKG; Complete Time: 12:49 dr5 03/24 15:47 Order name: Patient Safety Orders EDTN 03/24 12:49 Order name: Cardiac monitoring; Complete Time: 12:55 dr5 03/24 12:49 Order name: EKG - Nurse/Tech; Complete Time: 13:08 dr5 03/24 12:49 Order name: IV Saline Lock; Complete Time: 12:55 dr5 03/24 12:49 Order name: Labs collected and sent; Complete Time: 13:01 dr5 03/24 12:49 Order name: O2 Per Protocol; Complete Time: 12:55 dr5 03/24 12:49 Order name: O2 Sat Monitoring; Complete Time: 12:55 dr5 EC:06 Rate is 99 beats/min. Rhythm is irregularly irregular. QRS [place] is Normal. [place] interval dr5 is normal at 186 msec. QRS interval is normal at 112 msec. QT interval is normal at 358 msec. Clinical impression: No change from prior ECG, Atrial Fibrillation, and No evidence of ischemia. Administered Medications: 13:53 Drug: midodrine 2.5 mg PO once Route: PO; jp5 14:40 Drug: Cefepime IVPB 2 grams IVPB at 200 ml/hr once over 30 mins; (mix in NS 100 mL) jp5 Route: IVPB; Rate: 200 ml/hr; Infused Over: 30 mins; Site: right wrist; 15:18 Follow up: Response: No adverse reaction; IV Status: Completed infusion; IV Intake: jp5 100ml 15:19 Drug: vancoMYCIN IVPB 2 grams IVPB at calculated rate once Route: IVPB; Rate: jp5 calculated rate; Site: left wrist; Disposition Summary: 03/24/25 14:44 Hospitalization Ordered Notes: Hospitalization Status: Inpatient Admission dr5 Provider: Delia Banerjee Location: Telemetry/MedSurg (Inpatient) dr5 Condition: Stable dr5 Problem: new dr5 Symptoms: have worsened dr5 Bed/Room Type: Standard dr5 Room Assignment: 403(03/24/25 16:23) sp Diagnosis - Unspecified bacterial pneumonia dr5 - Severe sepsis without septic shock dr5 Forms: - Medication Reconciliation Form dr5 - SBAR form dr5 - Leadership Thank You Letter dr5 Addendum: 03/26/2025 07:29 Co-signature as Attending Physician, Zechariah Talamantes MD I agree with the assessment and c tony plan of care. Signatures: Dispatcher [employer] EDMS Zechariah Talamantes MD MD cha Pinkerton, Shawna sp Pena, Jailene RN RN jp5 Richard Scott, SKETCH LINER-C SKETCH LINER-Cdr5 Corrections: (The following items were deleted from the chart) 03/24 12:49 12:49 CBC+H.LAB.BRZ ordered. EDMS EDMS 12:49 12:49 MAGNESIUM+C.LAB.BRZ ordered. EDMS EDMS 12:49 12:49 PROBNP+C.LAB.BRZ ordered. EDMS EDMS 12:49 12:49 PROTIME (+INR)+COAG.LAB.BRZ ordered. EDMS EDMS 12:49 12:49 Troponin High Sensitivity+C.LAB.BRZ ordered. EDMS EDMS 12:49 12:49 COMPREHENSIVE METABOLIC PANEL+C.LAB.BRZ ordered. EDMS EDMS 14:50 14:46 Constitutional: This is a well developed, well nourished patient who is awake, dr5 alert, and in no acute distress. Head/Face: Normocephalic, atraumatic. Eyes: Pupils equal round and reactive to light, extra-ocular motions intact. Lids and lashes normal. Conjunctiva and sclera are non-icteric and not injected. Cornea within normal limits. Periorbital areas with no swelling, redness, or edema. Neck: Trachea midline, no thyromegaly or masses palpated, and no cervical lymphadenopathy. Supple, full range of motion without nuchal rigidity, or vertebral point tenderness. No Meningismus. Chest/axilla: Normal chest wall appearance and motion. Nontender with no deformity. No lesions are appreciated. Cardiovascular: Irregular irregular rate and rhythm with a normal S1 and S2. Normal PMI, no JVD. No pulse deficits. Respiratory: No rales, rhonchi or wheezes noted. No increased work of breathing, no retractions or nasal flaring. Back: No spinal tenderness. No costovertebral tenderness. Full range of motion. Skin: Warm, dry with normal turgor. Normal color with no rashes, no lesions, and no evidence of cellulitis. MS/ Extremity: Pulses equal, no cyanosis. Neurovascular intact. Full, normal range of motion. Neuro: Awake and alert, GCS 15, oriented to person, place, time, and situation. Cranial nerves II-XII grossly intact. Motor strength 5/5 in all extremities. Sensory grossly intact. Cerebellar exam normal. Normal gait. dr5 15:47 14:44 dr5 sp 16:23 15:47 419 sp sp
--- NOTE | 2025-03-24 14:45 | ER ---
Nurse's Notes [facility] Name: Maurice Cid Jr Age: 64 yrs Sex: Male : 1960 Arrival Date: 03/24/2025 Time: 12:38 Bed 2 Private MD: Diagnosis: Unspecified bacterial pneumonia;Severe sepsis without septic shock Presentation: 03/24 12:41 Chief complaint: EMS states: Pt was at [place] [facility] for a regular check up when he became jp5 SOB, [place] called 911 due to low BP and elevated HR. Pt states he was not having any SOB prior to visit. Pt is on home oxygen at 6LPM [place]. Coronavirus screen: Client denies travel out of the [place] in the last 14 days. At this time, the client does not indicate any symptoms associated with coronavirus-19. Ebola Screen: No symptoms or risks identified at this time. Initial Sepsis Screen: Does the patient meet any 2 criteria? HR > 90 bpm. Yes Does the patient have a suspected source of infection? No. Patient's initial sepsis screen is negative. Risk Assessment: Do you want to hurt yourself or someone else? Patient reports no desire to harm self or others. Onset of symptoms was March 24, 2025. 12:41 Method Of Arrival: EMS: [facility] 12:41 Acuity: EV 2 5 Triage Assessment: 12:47 General: Appears in no apparent distress. Behavior is calm, cooperative, appropriate jp5 for age. Pain: Denies pain. Respiratory: Reports shortness of breath at rest on exertion Onset: The symptoms/episode began/occurred suddenly, the patient has mild shortness of breath. Historical: - Allergies: 12:43 No Known Allergies; jp5 - PMHx: 12:43 asbestosis; Atrial fibrillation; colon cancer; Congestive heart failure; COPD; diabetes jp5 mellitus; Hypertension; - PSHx: 12:43 Ankle; Colon; knee; jp5 - Immunization history:: Adult Immunizations up to date. - Infectious Disease History:: Denies. - Social history:: Smoking status: Patient denies any tobacco usage or history of. Screenin:45 [facility] [place] ED Fall Risk Assessment (Adult) History of falling in the last 3 months, jp5 including since admission No falls in past 3 months (0 pts) Confusion or Disorientation No (0 pts) Intoxicated or Sedated No (0 pts) Impaired Gait Yes (1 pt) Mobility Assist Device Used Yes (1 pt) Altered Elimination No (0 pt) Score/Fall Risk Level 3 or more points = High Risk Oriented to surroundings, Maintained a safe environment, Educated pt \T\ family on fall prevention, incl call for assistance when getting out of bed, Assessed \T\ reinforced patient's understanding of fall precautions, Provided non-skid footwear, Hourly rounding (assess needs \T\ fall precautionary measures) done, Used ambulatory aids as needed (educated on \T\ assisted with), Used gait belt as appropriate Implemented a Fall Risk Plan of Care, Apply high fall risk patient identification: yellow non skid footwear/ fall signage, Placed fall mat w/ non beveled edge next to bed, Activated bed/chair alarm, Remained w/in arm's length of patient and in sight while toileting, Offered frequent toileting (1:1 observation), Remained with patient while ambulating, Utilized family, sitter, or virtual chief merchandising officer as indicated. Abuse screen: Denies threats or abuse. Denies injuries from another. Nutritional screening: No deficits noted. Tuberculosis screening: No symptoms or risk factors identified. Assessment: 12:47 Cardiovascular: Rhythm is sinus tachycardia. Respiratory: Airway is patent Respiratory jp5 effort is even, labored, Breath sounds are diminished bilaterally. Vital Signs: 12:41 BP 91 / 58; Pulse 102; Resp 16; Temp 98(O); Pulse Ox 99% on 6 lpm NC; Pain 0/10; jp5 13:30 BP 93 / 52; Pulse 105; Resp 16; Pulse Ox 99% on 6 lpm NC; jp5 14:30 BP 101 / 57; Pulse 65; Resp 16; Pulse Ox 99% on 6 lpm NC; jp5 15:30 BP 96 / 58; Pulse 87; Resp 16; Temp 98.2(O); Pulse Ox 99% on 6 lpm NC; Pain 0/10; jp5 12:41 Pain Scale: Adult jp5 15:30 Pain Scale: Adult jp5 ED Course: 12:41 Patient arrived in ED. jp5 12:43 Triage completed. jp5 12:43 Richard Scott [facility]C [facility]5 12:43 Zechariah Talamantes MD is Attending Physician. dr5 12:44 Arm band placed on right wrist. jp5 12:45 Patient has correct armband on for positive identification. Bed in low position. Call jp5 light in reach. Side rails up X 1. Provided Education on: CALL LIGHT USE. nurse monitoring on. Pulse ox on. NIBP on. 12:45 No provider procedures requiring assistance completed. Maintain EMS IV. Dressing jp5 intact. Good blood return noted. Site clean \T\ dry. Gauge \T\ site: 20G LFA. Flushed with 10 mL NS. 13:01 CBC with Diff Sent. jp5 13:01 Magnesium Sent. jp5 13:01 NT PRO-BNP Sent. jp5 13:01 PT-INR Sent. jp5 13:01 Troponin HS Sent. jp5 13:08 EKG done, by ED staff, reviewed by Richard LOPEZ. jp5 13:33 Briana Andersen, RN is Primary Nurse. jp5 13:39 XRAY Chest (1 view) In Process Unspecified. EDMS 13:40 First set of blood cultures drawn by me. jp5 13:50 Second set of blood cultures drawn by me. jp5 13:52 Blood Culture Adult (2) Sent. jp5 13:52 Lactate w/ 2H reflex if indic. Sent. jp5 14:31 Notified Nurse Practitioner and/or Physician Nursing Technician of a critical lab result(s), ll1 lactate 2.5. 14:43 Delia Banerjee MD is Hospitalizing Provider. dr5 16:08 Inserted saline lock: 20 gauge in left antecubital area, using aseptic technique. Blood jp5 collected. Flushed with 10 mL NS 16:19 Report given to Paperwork faxed to 4th floor, Arvin confirmed received. jp5 16:39 Lactate w/ 2H reflex if indic. Sent. jp5 Administered Medications: 13:53 Drug: midodrine 2.5 mg PO once Route: PO; jp5 14:40 Drug: Cefepime IVPB 2 grams IVPB at 200 ml/hr once over 30 mins; (mix in NS 100 mL) jp5 Route: IVPB; Rate: 200 ml/hr; Infused Over: 30 mins; Site: right wrist; 15:18 Follow up: Response: No adverse reaction; IV Status: Completed infusion; IV Intake: jp5 100ml 15:19 Drug: vancoMYCIN IVPB 2 grams IVPB at calculated rate once Route: IVPB; Rate: jp5 calculated rate; Site: left wrist; Medication: 12:45 VIS not applicable for this client. jp5 Intake: 15:18 IV: 100ml; Total: 100ml. jp5 Outcome: 14:44 Decision to Hospitalize by Provider. dr5 17:09 Admitted to Med/surg accompanied by tech, via wheelchair, with oxygen, with chart, jp5 17:09 Condition: stable 17:09 Instructed on the need for admit, Demonstrated understanding of instructions, 17:10 Patient left the ED. jp5 Signatures: Dispatcher [employer] EDMS Hali White RN RN ll1 Briana Andersen RN RN jp5 Richard Scott, [employer]-C [employer]-Cdr5 Corrections: (The following items were deleted from the chart) 12:47 12:41 Chief complaint: EMS states: Pt was at [place] [facility] for a regular check up when he jp5 became SOB, [place] called 911 due to low BP and elevated HR. jp5
[2025-03-24] MEDS ORDERED: IPRATROPIUM BROM 0.5MG/2.5ML NEB PRN (15:40)
[2025-03-24] MEDS ORDERED: ALBUTEROL 2.5 MG/3 ML NEB SOL NEB PRN (15:40)
[2025-03-24] MEDS: CEFTRIAXONE 1,000 MG in NA CHLORIDE 0.9% 50 ML IVPB SCH (16:00)
[2025-03-24] MEDS: NA CHLORIDE 0.9% 1,000 ML IV SCH ×2 (16:00→18:29)
--- NOTE | 2025-03-24 16:28 | P.HP ---
Certification for Inpatient Patient admitted to: Inpatient With expected LOS: >2 Midnights Patient will require the following post-hospital care: None Practitioner: I am a practitioner with admitting privileges, knowledge of patient current condition, hospital course, and medical plan of care. Services: Services provided to patient in accordance with Admission requirements found in Title 42 Section 412.3 of the Code of Federal Regulations Patient History Date of Service: 03/24/25 Primary Care Provider: [facility] Reason for admission: Dehydration, sepsis, pneumonia History of Present Illness: Maurice Cid presented via EMS from a [facility] due to acute shortness of breath and hypotension with tachycardia during a routine checkup. - History of Presenting Illness: [facility] to the [facility], Maurice Cid denied experiencing any shortness of breath. He reported a dry cough that began yesterday but denied fever, chills, or pleuritic pain. Maurice Cid stated he did not eat breakfast and, despite being diabetic, took his insulin. He experienced weakness during his [facility] appointment, which progressively worsened. His blood pressure was found to be low after several attempts to obtain a reading. Upon arrival at the emergency department, Maurice Cid reported feeling much better after consuming a hamburger. During the interview, he maintained 97% oxygen saturation while speaking, though his nasal cannula was not correctly applied. Patient was given p.o. midodrine in the ED for low blood pressure Allergies No Known Allergies Allergy (Unverified 10/30/19 20:59) Home medications list reviewed: Yes Home Medications: Albuterol Sulfate [Proair Respiclick] 1 puff IH Q6HP PRN 10/30/19 Tamsulosin [Flomax*] 0.4 mg PO BEDTIME 10/30/19 Acetaminophen [Tylenol Extra Strength] 500 mg PO Q6HP PRN 07/05/22 Atorvastatin Calcium [Lipitor] 40 mg PO DAILY 07/05/22 Apixaban [Eliquis] 5 mg PO BID #60 tab 07/09/22 Spironolactone [Aldactone*] 25 mg PO DAILY #30 tab 07/09/22 Cyanocobalamin (Vitamin B-12) [Vitamin B-12] 2,000 mcg PO DAILY 09/10/22 Fluticasone Propion/Salmeterol [Wixela 500-50 Inhub] 1 each IH BID 09/10/22 Furosemide [Lasix*] 80 mg PO DAILY 09/10/22 Albuterol Sulfate [Albuterol Sulfate 0.083% Neb Soln] 1 vial NEB QID PRN 02/17/25 Allopurinol 300 mg PO DAILY 02/17/25 Cholecalciferol (Vitamin D3) [Vitamin D3] 0.5 tab PO DAILY 02/17/25 Cyclobenzaprine HCl 10 mg PO TID PRN 02/17/25 Diclofenac Sodium [Voltaren Arthritis Pain] 2 g TOP BID 02/17/25 Empagliflozin [Jardiance] 0.5 tab PO DAILY 02/17/25 Gabapentin 600 mg PO TID 02/17/25 Insulin Aspart Prot/Insuln Asp [Insulin Aspart Pro Gxs24-10 Pn] 10 units SQ TIDWM 02/17/25 Insulin Glargine,Hum.rec.anlog [Semglee] 15 units SQ BID 02/17/25 Metoprolol Succinate [Toprol Xl*] 50 mg PO DAILY 02/17/25 Pantoprazole [Protonix Tab*] 40 mg PO BID 02/17/25 Potassium Chloride [Klor-Con 10] 10 meq PO DAILY 02/17/25 Roflumilast 500 mcg PO DAILY 02/17/25 Sacubitril/Valsartan [Sacubitril-Valsartan 24-26 mg] 1 tab PO BID 02/17/25 Semaglutide [Ozempic] 1 mg SQ SEECOM 02/17/25 Tiotropium [Spiriva Handihaler*] 2 sprays PO DAILY 02/17/25 metOLazone [Metolazone] 5 mg PO SEECOM PRN 02/17/25 Mupirocin Calcium [Bactroban Nasal*] 1 appl RANDY BID tube 02/18/25 levoFLOXacin [Levaquin*] 750 mg PO DAILY #5 tab 02/18/25 - Past Medical/Surgical History Has patient received pneumonia vaccine in the past: No Diabetic: Yes -: Hypertension -: COPD -: Asbestos -: Colon CA -: CHF -: BPH -: Colon resection -: colostomy reversal -: bilateral knee surgery -: right ankle sx Psychosocial/ Personal History: Patient lives at home with his mother. - Family History Mother -: Hypertension, Other (see notes) Notes: glaucoma, tremors Father -: Diabetes, Stroke - Social History Smoking Status: Unknown if ever smoked Alcohol use: Yes CD- Drugs: No Caffeine use: Yes Place of Residence: Home Review of Systems 10-point ROS is otherwise unremarkable Physical Examination - Physical Exam General: Alert, In no apparent distress, Oriented x3, Obese HEENT: Atraumatic, Normocephalic, PERRLA, Other (Corrective lenses, dry mucosa) Neck: Supple, JVD not distended, No Thyromegaly Respiratory: Clear to auscultation bilaterally, Normal air movement, Diminished (Bases, suspected due to body habitus) Cardiovascular: No edema, Normal pulses, Regular rate/rhythm, Normal S1 S2, No gallops, No rubs, No murmurs Capillary refill: <2 Seconds Gastrointestinal: Normal bowel sounds, Soft and benign, Non-distended, W/out hepatosplenomegaly, No masses, No rebound, No guarding Musculoskeletal: No clubbing, No swelling, No contractures, No erythema, No tenderness, No warmth Integumentary: No rashes, No breakdown, No significant lesion, No erythema, No warmth Neurological: Normal speech, Normal tone, Sensation intact, Cranial nerves 3-12 intact, Normal affect - Studies Laboratory Data (last 24 hrs) 03/24/25 03/24/25 03/24/25 13:00 13:00 13:00 WBC 18.20 H Hgb 11.1 L Hct 35.8 L Plt Count 431 H PT 15.9 H INR 1.42 Sodium 130 L Potassium 3.4 L BUN 51 H Creatinine 2.06 H Glucose 158 H Magnesium 1.8 Total Bilirubin 0.4 AST 15 ALT 26 Alkaline Phosphatase 59 Assessment and Plan - Plan Assessment: 64-year-old male presented for dyspnea and hypotension with tachycardia [facility] admitted for pneumonia, septic shock and dehydration. Recently discharged on 03/03 on Levaquin x 5 days after receiving azithromycin plus ceftriaxone for 3 days inpatient. Plan: Acute kidney injury Likely prerenal secondary to dehydration On CKD stage II -Creatinine 2.06, 1.1 seems around baseline. -Renal ultrasound ordered, will follow -Spot urine for sodium, creatinine, urinalysis ordered, will follow. -Maintain euvolemia. -qAM BMP -Avoid nephrotoxins when possible. -Renally dose all medications. Hyponatremia, mild - Sodium 130 , baseline seems around . -NS at 100 mL/h -Monitor BMP daily -Monitor fluid status -Consider nephrology consult if not improving Hypokalemia -potassium 3.4 today. - Potassium replacement protocol -Recheck potassium tomorrow and order Magnesium if persistently low. Severe sepsis Lactic acidosis Leukocytosis Dehydration -Lactic acid 2.5, trend to less than 2.2 -Will start NS 0.9% rate 100 mL/h, will trend until normal. - Telemetry monitoring Community-acquired pneumonia. Likely residual/resolving from previous admission -PSI score on admission 146 -O2 saturation less than 88% on room air, now on nasal cannula with a flow rate of 6 L/min (baseline). -Continuous pulse oximetry. -Wean down oxygen as tolerated to maintain oxygenation above 92%. -Procalcitonin ordered, will follow -Blood cultures no growth to date. -Sputum Gram stain and culture ordered, will follow. -Influenza A, B, COVID 19 ordered, will follow. -Chest x-ray personally reviewed and showed small area of consolidation versus atelectasis -Antibiotics: Azithromycin 500 mL ceftriaxone 1 g IV daily Monitor CBC Hypotension with a history of hypertension - Will hold antihypertensive for now Will start on albumin Added on midodrine in the ER Hyperlipidemia Continue statin Diabetes, type 2 insulin-dependent Insulin sliding scale Accu-Chek before every meal and at bedtime monitor BMP COPD Continue home medications and titrate as needed Oxygen supplementation 6 L baseline Will try to wean down As needed nebulized Resume home meds once med rec complete Dispo: Anticipate home with no needs 24 to 48 hours DVT prophylaxis: Heparin Diet: Cardiac, diabetic Code Status: Full Code Discharge Plan: Home Plan to discharge in: 48 Hours - Advance Directives Does patient have a Living Will: No Does patient have a Durable POA for Healthcare: No - Code Status/Comfort Care Code Status Assessed: Yes (Full code) Critical Care: No
[2025-03-24] MEDS: HEPARIN 5000 UNIT/ML 1 ML VIAL SQ SCH (17:00)
[2025-03-24] MEDS: AZITHROMYCIN IV 500 MG in NA CHLORIDE 0.9% 250 ML IVPB SCH (17:00)
[2025-03-24] MEDS ORDERED: HOME MED 1 EA UNK (Semaglutide [Ozempic] 1 MG/0.75 ML Pen.Injctr) SQ SCH (17:30)
[2025-03-24 17:47] VITALS: BMI 47.2
--- NOTE | 2025-03-24 18:02 | RAD REPORT ---
EXAMINATION: US RENAL ULTRASOUND CLINICAL INDICATION: JAGJIT TECHNIQUE: Real-time ultrasonography of the abdomen was performed. COMPARISON: No prior exam. FINDINGS: RIGHT KIDNEY: Right renal length measurement: 13.4 x 8.3 x 6.1 cm. Normal in echogenicity and size. N o calculus, solid mass or hydronephrosis. 4.0 cm cyst right kidney. LEFT KIDNEY: Left renal length measurement: 12.0 x 6.3 x 6.3 cm. Normal in echogenicity and size. No calculus, solid mass or hydronephrosis. URINARY BLADDER: Incompletely distended without gross abnormality detected. ADDITIONAL FINDINGS: None. IMPRESSION: 4 cm cyst right kidney, otherwise unremarkable study.
[2025-03-24 18:40] LABS: Urine Microscopic Reflex YN NO UMIC
[2025-03-24] MEDS: GABAPENTIN 300 MG CAP PO SCH (20:31)
[2025-03-24] MEDS: ACETAMINOPHEN 500 MG TAB PO PRN (20:32)
[2025-03-24] MEDS: TAMSULOSIN 0.4 MG SR CAP PO SCH (20:32)
[2025-03-24] MEDS: APIXABAN 5 MG TABLET PO SCH (20:32)
[2025-03-24] MEDS: INSULIN GLARGINE 100 UNIT/ML SQ SCH (20:32)
[2025-03-24] MEDS: PANTOPRAZOLE 40MG TABLET PO SCH (20:32)
[2025-03-24] MEDS: Mupirocin NASAL 2 APPL/1 GM TUBE NAS SCH (20:33)
[2025-03-24] MEDS ORDERED: GABAPENTIN 300 MG CAP PO SCH (21:00)
[2025-03-24 22:57] VITALS: O2SAT 100
[2025-03-25] MEDS: HYDROCODONE/APAP 5/325 MG TAB PO PRN (04:02)
[2025-03-25 05:41] LABS: Absolute Lymphocytes (CBC) 0.9 K/uL (0.7-4.9); Hematocrit 33.8 % (39.6-49.0); Hemoglobin 10.6 g/dL (13.6-17.9); MCH 22.7 pg (27.0-35.0); MCHC 31.5 g/dL (32.0-36.0); MCV 72.1 fL (80-100); MPV 7.1 fL (7.6-11.3); Nucleated RBC Absolute Count 0.0 (0-0); Nucleated Red Blood Cells % 0.0 % (0-0); RBC Red Blood Cell Count 4.68 M/uL (4.33-5.43); White Blood Count 17.00 thou/uL (4.3-10.9)
[2025-03-25 05:58] LABS: Anion Gap 8.3 mEq/L (5.0-15.0); BUN Blood Urea Nitrogen 53.0 mg/dL (7-18); Glucose Level 151.0 mg/dL (74-106); Magnesium 1.6 mg/dL (1.6-2.4); Potassium 3.3 mEq/L (3.5-5.1)
[2025-03-25 06:01] LABS: Ferritin 13.9 ng/mL (26-388); Iron 29.0 ug/dL (65-175)
[2025-03-25 06:07] LABS: Differential Total Cells Count 100; Segmented Neutrophils 75 % (40-80)
[2025-03-25 06:08] LABS: Blood Morphology Comment NOT SEEN (NOT SEEN)
[2025-03-25] MEDS: MAGNESIUM SULFATE 1 gm IVPB 1 GM/100 ML BAG IV ONE (08:34)
[2025-03-25] MEDS: CYANOCOBALAMIN 1,000 MCG TAB PO SCH (08:35)
[2025-03-25] MEDS: VITAMIN D 1000 UNIT TAB PO SCH (08:35)
[2025-03-25] MEDS: FUROSEMIDE 40 MG TABLET PO SCH (08:35)
[2025-03-25] MEDS: ATORVASTATIN 40 MG TAB PO SCH (08:35)
[2025-03-25] MEDS: SPIRONOLACTONE 25 MG TABLET PO SCH (08:35)
[2025-03-25] MEDS: POTASSIUM CL SA 10 MEQ TAB PO ONE (08:36)
[2025-03-25] MEDS: METOPROLOL XL 50 MG TAB PO SCH (08:37)
[2025-03-25] MEDS: ROFLUMILAST 500 MCG TABLET PO SCH (08:37)
[2025-03-25] MEDS: LIDOCAINE 4% PATCH TOP SCH (08:38)
[2025-03-25] MEDS: POTASSIUM CL SA 10 MEQ TAB PO SCH (08:38)
[2025-03-25 09:08] LABS: Percent Reticulocyte Count 2.08 % (0.4-2.05); RBC Red Blood Cell Count 5.0 M/uL (4.33-5.43)
[2025-03-25] MEDS: HUMALOG MIX 75/25 100 UNITS/ML SQ SCH (09:35)
[2025-03-25] MEDS: EMPAGLIFLOZIN 10 MG TABLET PO SCH (09:45)
[2025-03-25 09:58] LABS: Iron 34.0 ug/dL (65-175); Magnesium 1.6 mg/dL (1.6-2.4); NT PRO-BNP 146.0 pg/mL (<125); Thyroid Stimulating Hormone 0.866 uIU/mL (0.358-3.740)
[2025-03-25] MEDS: CYCLOBENZAPRINE 10 MG TAB PO PRN (11:07)
[2025-03-25] MEDS: SOD FERRIC GLUC COMPLX/SUCROSE 125 MG in NA CHLORIDE 0.9% 100 ML IV ONE (11:07)
[2025-03-25] MEDS: TIOTROPIUM 5 SPRAYS/INHALER IH SCH (11:08)
[2025-03-25 13:38] VITALS: BP 95/64; TEMP 97.8
--- NOTE | 2025-03-25 13:55 | P.DS ---
Admission Date: 03/24/25 Discharge Date: 03/25/25 Primary Care Provider: AYUSH Disposition: ROUTINE DISCHARGE Discharge Condition: GOOD Reason for Admission: Dehydration, sepsis, pneumonia Consultations: None Procedures: None Brief History of Present Illness: Maurice Cid presented via EMS from a [facility] due to acute shortness of breath and hypotension with tachycardia during a routine checkup. - History of Presenting Illness: Prior to the [facility] visit, Maurice Cid denied experiencing any shortness of breath. He reported a dry cough that began yesterday but denied fever, chills, or pleuritic pain. Maurice Cid stated he did not eat breakfast and, despite being diabetic, took his insulin. He experienced weakness during his [facility] appointment, which progressively worsened. His blood pressure was found to be low after several attempts to obtain a reading. Upon arrival at the emergency department, Maurice Cid reported feeling much better after consuming a hamburger. During the interview, he maintained 97% oxygen saturation while speaking, though his nasal cannula was not correctly applied. Patient was given p.o. midodrine in the ED for low blood pressure Hospital Course: Maurice Cid, a 64-year-old male with a complex medical history including asbestosis, atrial fibrillation, colon cancer, congestive heart failure, COPD, diabetes mellitus, and hypertension, presented from the [facility] via EMS with acute onset shortness of breath, hypotension, and tachycardia during a routine visit. He reported no preceding symptoms except for a dry cough beginning the day prior, and noted symptomatic improvement after eating upon arrival. Evaluation revealed acute kidney injury, likely prerenal in origin due to dehydration in the context of underlying CKD stage II. He was managed with careful IV fluid resuscitation (normal saline at 100 mL/h), daily BMP monitoring, and nephrotoxic medications were avoided. A renal ultrasound and sp ot urine studies were ordered to further evaluate the JAGJIT, which were unremarkable. Incidentally, a benign appearing renal cyst of 4 cm was noted on renal ultrasound. Recommend PCP at [facility] request records for monitoring. His hyponatremia was mild and attributed to volume depletion; this was treated conservatively with isotonic fluid replacement and electrolyte monitoring. Concurrent hypokalemia was identified and corrected according to protocol, with plans to recheck potassium and magnesium levels, which showed marginal improvement. In the context of elevated lactate and tachycardia, severe sepsis without shock was suspected. However, no infectious source was identified, blood cultures remained negative, and inflammatory markers were within acceptable limits. IV fluids were administered to address lactic acidosis, and the patient remained hemodynamically stable throughout his stay. Lactic acid corrected 1.6 on day of discharge. A recent community-acquired pneumonia treated during his prior hospitalization was considered likely resolving, given the chest X-ray showed only a small residual infiltrate. He continued oxygen therapy at his home baseline of 6 L/min and tolerated weaning trials. Influenza and COVID-19 testing were pending, and procalcitonin was planned to assist in determining infectious activity. The patient remained afebrile and showed no new signs of infection during admission. His hypotension, concerning in the setting of chronic hypertension, was managed by withholding antihypertensives temporarily, with supportive measures including albumin and midodrine initiated in the ED. The patients blood pressure improved with volume repletion and monitoring. For his diabetes, which was well- controlled with an A1C of 6.6, he was maintained on an insulin sliding scale with Accu-Chek monitoring. He experienced mild symptoms likely related to insulin administration without prior food intake, which resolved after eating. His COPD management was continued with home medications and oxygen therapy; nebulized treatments were given as needed, and he remained stable on room air during periods of observation. For hyperlipidemia, he remained on a statin. He also has iron-deficiency anemia, previously identified with low ferritin and iron, and was advised to continue oral iron supplementation. An echocardiogram was completed during hospitalization, and [facility] was [facility]. Upon medical stabilization, he was deemed ready for discharge. His spouse was present for education and planned to bring in his home oxygen to facilitate safe transport. Discharge planning included close [facility] follow-up for primary care and potential cardiac evaluation based on the echocardiogram findings. He was advised to sign a release form at the [facility] to facilitate record-sharing, with Dr. Banerjee committed to direct outreach if any urgent findings emerge. Vital Signs/Physical Exam: Temp Pulse Resp BP Pulse Ox 97.8 F 92 H 16 95/64 100 03/25/25 12:00 03/25/25 12:00 03/25/25 12:00 03/25/25 12:03/25/25 12:00 General: Alert, In no apparent distress, Oriented x3, Cooperative, Obese HEENT: Atraumatic, Normocephalic, Mucous membr. moist/pink Neck: Supple, JVD not distended, No Thyromegaly Respiratory: Clear to auscultation bilaterally, Normal air movement, Diminished (bases) Cardiovascular: No edema, Normal pulses, Regular rate/rhythm, Normal S1 S2, No gallops, No rubs, No murmurs Capillary refill: <2 Seconds Gastrointestinal: Normal bowel sounds, Soft and benign, Non-distended, W/out hepatosplenomegaly Musculoskeletal: No clubbing, No swelling, No contractures, No erythema, No tenderness Integumentary: No rashes, No breakdown, No significant lesion, No tenderness/swelling, No erythema Neurological: Normal speech, Normal tone, Sensation intact, Cranial nerves 3-12 intact, Normal affect, Abnormal gait (Ambulates with walker) Laboratory Data at Discharge: WBC 17.00 thou/uL (4.3-10.9) H 03/25/25 05:29 Hgb 10.6 g/dL (13.6-17.9) L 03/25/25 05:29 Hct 33.8 % (39.6-49.0) L 03/25/25 05:29 Plt Count 386 thou/uL (152-406) 03/25/25 05:29 PT 15.9 SECONDS (10-13.0) H 03/24/25 13:00 INR 1.42 03/24/25 13:00 APTT 36.4 SECONDS (27.2-37.4) 03/25/25 05:29 Sodium 131 mEq/L (136-145) L 03/25/25 05:29 Potassium 3.3 mEq/L (3.5-5.1) L 03/25/25 05:29 BUN 53 mg/dL (7-18) H 03/25/25 05:29 Creatinine 1.57 mg/dL (0.70-1.30) H 03/25/25 05:29 Glucose 151 mg/dL (74-106) H 03/25/25 05:29 Phosphorus 4.0 mg/dL (2.5-4.9) 03/25/25 05:29 Magnesium 1.6 mg/dL (1.6-2.4) 03/25/25 08:54 Total Bilirubin 0.4 mg/dL (0.2-1.0) 03/24/25 13:00 AST 15 U/L (15-37) 03/24/25 13:00 ALT 26 U/L (16-61) 03/24/25 13:00 Alkaline Phosphatase 59 U/L (45-117) 03/24/25 13:00 Home Medications: Albuterol Sulfate [Proair Respiclick] 1 puff IH Q6HP PRN 10/30/19 Tamsulosin [Flomax*] 0.4 mg PO BEDTIME 10/30/19 Acetaminophen [Tylenol Extra Strength] 500 mg PO Q6HP PRN 07/05/22 Atorvastatin Calcium [Lipitor] 40 mg PO DAILY 07/05/22 Apixaban [Eliquis] 5 mg PO BID #60 tab 07/09/22 Spironolactone [Aldactone*] 25 mg PO DAILY #30 tab 07/09/22 Cyanocobalamin (Vitamin B-12) [Vitamin B-12] 2,000 mcg PO DAILY 09/10/22 Fluticasone Propion/Salmeterol [Wixela 500-50 Inhub] 1 each IH BID 09/10/22 Furosemide [Lasix*] 80 mg PO DAILY 09/10/22 Albuterol Sulfate [Albuterol Sulfate 0.083% Neb Soln] 1 vial NEB QID PRN 02/17/25 Allopurinol 300 mg PO DAILY 02/17/25 Cholecalciferol (Vitamin D3) [Vitamin D3] 0.5 tab PO DAILY 02/17/25 Cyclobenzaprine HCl 10 mg PO TID PRN 02/17/25 Diclofenac Sodium [Voltaren Arthritis Pain] 2 g TOP BID 02/17/25 Empagliflozin [Jardiance] 0.5 tab PO DAILY 02/17/25 Gabapentin 600 mg PO TID 02/17/25 Insulin Aspart Prot/Insuln Asp [Insulin Aspart Pro Cbo40-72 Pn] 10 units SQ TIDWM 02/17/25 Insulin Glargine,Hum.rec.anlog [Semglee] 15 units SQ BID 02/17/25 Metoprolol Succinate [Toprol Xl*] 50 mg PO DAILY 02/17/25 Pantoprazole [Protonix Tab*] 40 mg PO BID 02/17/25 Potassium Chloride [Klor-Con 10] 10 meq PO DAILY 02/17/25 Roflumilast 500 mcg PO DAILY 02/17/25 Semaglutide [Ozempic] 1 mg SQ SEECOM 02/17/25 Tiotropium [Spiriva Handihaler*] 2 sprays PO DAILY 02/17/25 metOLazone [Metolazone] 5 mg PO SEECOM PRN 02/17/25 Lidocaine 4% Patch [Lidoderm 5% Patch*] 03/24/25 Ferrous Sulfate [Feosol] 325 mg PO Q48H #30 tab 03/25/25 New Medications: Ferrous Sulfate [Feosol] 325 mg PO Q48H #30 tab Physician Discharge Instructions: PROBLEM: Shortness of breath GOAL: Clear understanding of disease process INSTRUCTIONS: Follow-up with with your PCP at the [facility] within 2 to 3 days You will be contacted if there are emergent findings on the echocardiogram you completed today by Dr. Banerjee. I recommended your care team at the [facility] request records from this hospital visit so they can continue monitoring. Ferrous sulfate was sent to your pharmacy to begin taking for iron deficiency anemia. You can take it every other day. It is also available [id number]. Diet: Heart healthy and diabetic diet Activity: Resume normal activities as tolerated Diet: AHA Activity: Fall precautions Followup: [facility] [Outside] - 2-3 Days NONE,NONE [Primary Care Provider] - Time spent managing pt's care (in minutes): 42
== END 2025-03-25 14:45 | disposition home health service (06) ==
LOC: ER 12:38 → INTOOBSV 15:37 → ERHOLD 15:37 → 4TH 16:21
PROVIDERS: ADMIT Hospitalist; ATTEND Hospitalist
DX: J18.9 Pneumonia, unspecified organism (principal); R65.20 Severe sepsis without septic shock; N17.9 Acute kidney failure, unspecified; I95.9 Hypotension, unspecified; R00.0 Tachycardia, unspecified; E86.0 Dehydration; E11.22 Type 2 diabetes mellitus with diabetic chronic kidney disease; N18.2 Chronic kidney disease, stage 2 (mild); E87.1 Hypo-osmolality and hyponatremia; E87.20 Acidosis, unspecified; D72.829 Elevated white blood cell count, unspecified; I10 Essential (primary) hypertension; E78.5 Hyperlipidemia, unspecified; J44.9 Chronic obstructive pulmonary disease, unspecified; D50.9 Iron deficiency anemia, unspecified; J61 Pneumoconiosis due to asbestos and other mineral fibers; I48.11 Longstanding persistent atrial fibrillation; Z79.01 Long term (current) use of anticoagulants; I50.9 Heart failure, unspecified
CPT/HCPCS: 96365; 93005; 93306; 87040 ×2; 85025 ×2; 80048; 36415 ×2; 83735 ×3; 84100; 85610; 85044; 82947 ×4; 83605 ×3; 85730; 84443; 81003; 83036; 84484; 84439; 82728; 82607; 83540 ×2; 80053; 84145; 83880 ×2; 83930; 71045; 76770; 97116; 97161; 94760 ×2; 96375; 99285; J1815; J2003; J3475; J2916; J3373; J0692; J7050; J7030; G0378; J1644

== ENCOUNTER 2025-03-30 15:51 | Emergency (ER) | payer OTHER ==
[2025-03-30 17:33] LABS: Absolute Lymphocytes (CBC) 1.3 K/uL (0.7-4.9); Hematocrit 35.3 % (39.6-49.0); Hemoglobin 11.6 g/dL (13.6-17.9); MCH 23.5 pg (27.0-35.0); MCHC 32.7 g/dL (32.0-36.0); MCV 71.7 fL (80-100); MPV 6.9 fL (7.6-11.3); Nucleated RBC Absolute Count 0.0 (0-0); Nucleated Red Blood Cells % 0.2 % (0-0); RBC Red Blood Cell Count 4.93 M/uL (4.33-5.43); White Blood Count 16.40 thou/uL (4.3-10.9)
--- NOTE | 2025-03-30 17:35 | RAD REPORT ---
Procedure: Chest Single View HISTORY: Cough COMPARISON: March 24, 2025 FINDINGS: Left basilar lung opacities without obvious change Right lung appears clear of acute infiltrate. No significant pleural effusion noted. The heart is mildly enlarged. . IMPRESSION: Left basilar opacities without significant change probably pneumonia
[2025-03-30 17:56] LABS: PT Prothrombin Time 15.8 SECONDS (10-13.0); Protime INR 1.41
[2025-03-30] MEDS ORDERED: DIGOXIN 0.25 MG/ML AMP ONE (19:00)
[2025-03-30] MEDS ORDERED: NA CHLORIDE 0.9% 250 ML ONE (19:01)
[2025-03-30] MEDS ORDERED: ALBUMIN HUMAN 25% 100 ML IV ONE (19:01)
[2025-03-30] MEDS ORDERED: MIDODRINE HCL 5 MG TABLET ONE ×2 (19:01→19:05)
[2025-03-30 19:28] LABS: ALT/SGPT 31 U/L (16-61); AST/SGOT 17 U/L (15-37); Albumin 3.3 g/dL (3.4-5.0); Albumin/Globulin Ratio 0.7 (1.1-1.8); Alkaline Phosphatase 56 U/L (45-117); Anion Gap 10.9 mEq/L (5.0-15.0); BUN Blood Urea Nitrogen 52 mg/dL (7-18); Bilirubin Indirect, Calculated 0.1 mg/dL (0.2-0.8); Globulin 4.6 g/dL (2.3-3.5); Glucose Level 153 mg/dL (74-106); Magnesium 2.0 mg/dL (1.6-2.4); NT PRO-BNP 940 pg/mL (<125); Potassium 3.9 mEq/L (3.5-5.1); Troponin High Sensitivity 17.6 pg/mL (<58.9)
--- NOTE | 2025-03-30 19:35 | EDPHYS ---
Physician Documentation [facility] Name: Maurice Cid Jr Age: 65 yrs Sex: Male : 1960 Arrival Date: 03/30/2025 Time: 15:51 Bed 5 Private MD: ED Physician Tristan Roger HPI: 03/30 18:43 This 65 yrs old Male presents to ER via EMS with complaints of Blood Pressure Problem, sb4 Dizziness. 18:43 Patient presents with complaints of dizziness and low blood pressure. He does have sb4 chronic hypotension and takes and is on 6 L at baseline, which is what his requirement is at this time. He denies any chest pain or shortness of breath. Reports compliance with his home medications. Historical: - Allergies: 16:12 No Known Allergies; km10 - PMHx: 16:12 asbestosis; Atrial fibrillation; Atrial fibrillation; colon cancer; Congestive heart km10 failure; COPD; diabetes mellitus; Hypertension; - PSHx: 16:12 Ankle; Colon; knee; km10 - Immunization history:: Adult Immunizations up to date. - Infectious Disease History:: Denies. - Social history:: Smoking status: Patient/guardian denies using tobacco, the patient reports quitting approximately 4 years ago. ROS: 18:43 Constitutional: Negative for fever, chills, and weight loss, sb4 18:43 Neuro: Positive for dizziness, 18:43 All other systems are negative, Exam: 18:43 Head/Face: Normocephalic, atraumatic. Eyes: Extra-ocular motions intact. Periorbital sb4 areas with no swelling, redness, or edema. ENT: Mucous membranes moist. Respiratory: No increased work of breathing, no retractions or nasal flaring. Abdomen/GI: Soft, non-tender, no distension. Skin: Warm, dry with normal turgor. Normal color with no rashes, no lesions, and no evidence of cellulitis. 18:43 Constitutional: The patient appears in no acute distress, alert, awake, 18:43 Cardiovascular: Rate: tachycardic, Rhythm: irregularly irregular, Vital Signs: 16:08 BP 90 / 58; Pulse 119; Resp 22; Temp 97.7(O); Pulse Ox 99% on 6 lpm NC; km10 16:45 BP 92 / 51; Pulse 121; Resp 24; Pulse Ox 99% on 6 lpm NC; km10 17:30 BP 107 / 65; Pulse 110; Pulse Ox 99% on 6 lpm NC; km10 19:43 BP 102 / 64; Pulse 106; Resp 18; Pulse Ox 100% on 6 lpm NC; mf3 21:00 BP 111 / 66; Pulse 89; Resp 18; Pulse Ox 100% on 6 lpm NC; mf3 22:00 BP 101 / 70; Pulse 90; Resp 17; Pulse Ox 100% on 6 lpm NC; mf3 23:00 BP 103 / 76; Pulse 82; Resp 16; Pulse Ox 98% on R/A; mf3 03/31 00:14 BP 113 / 60; Pulse 88; Resp 18; Pulse Ox 100% on R/A; mf3 [place] Coma Score: 03/30 16:45 Eye Response: spontaneous(4). Motor Response: obeys commands(6). Verbal Response: km10 oriented(5). Total: 15. 17:30 Eye Response: spontaneous(4). Motor Response: obeys commands(6). Verbal Response: km10 oriented(5). Total: 15. 19:42 Eye Response: spontaneous(4). Motor Response: obeys commands(6). Verbal Response: mf3 oriented(5). Total: 15. MDM: 15:57 Medical Screening Exam initiated sb4 19:35 Differential diagnosis: viral Infection, bacterial infection, URI, bronchitis, sb4 pneumonia. Data reviewed: vital signs, nurses notes, EMS record, lab test result(s), EKG, radiologic studies, plain films, and as a result, I will discharge patient. Care significantly affected by the following chronic conditions: Hypertension, Congestive Heart Failure, Chronic Obstructive Pulmonary Disease, Obesity, Chronic Kidney Disease. Counseling: I had a detailed discussion with the patient and/or guardian regarding the historical points, exam findings, and any diagnostic results supporting the discharge/admit diagnosis, lab results, radiology results. ED course: Patient request transfer to the DC for further care. 20:22 Transition of care: Care assumed from Anabel Lock PA-C. rn 20:23 ED course: Care assumed from ALEXANDRA Lock. [facility] with RVR and possible pneumonia residual from recent treatment. Patient here for hypotension. Patient on midodrine, given midodrine and fluids with improvement of hypotension. Current blood pressure is 100/67 with a heart rate of 105. [facility]ing [facility].. 23:40 ED course: Patient went back into A-fib with RVR, rate 137, blood pressure 114/92. Will rn start amiodarone given persistent hypotension throughout the visit. [facility].. 03/30 16:08 Order name: Basic Metabolic Panel; Complete Time: 19:32 sb4 03/30 16:08 Order name: CBC with Diff; Complete Time: 17:35 sb4 03/30 16:08 Order name: LFT's; Complete Time: 19:32 sb4 03/30 16:08 Order name: Magnesium; Complete Time: 19:32 sb4 03/30 16:08 Order name: NT PRO-BNP; Complete Time: 19:32 sb4 03/30 16:08 Order name: PT-INR; Complete Time: 17:59 sb4 03/30 16:08 Order name: Troponin HS; Complete Time: 19:32 sb4 03/30 16:18 Order name: Blood Culture Adult (2) sb4 03/30 16:18 Order name: Lactate w/ 2H reflex if indic.; Complete Time: 17:59 sb4 03/30 16:08 Order name: XRAY Chest (1 view); Complete Time: 17:37 sb4 03/30 16:08 Order name: EKG; Complete Time: 16:09 sb4 03/30 16:08 Order name: Cardiac monitoring; Complete Time: 17:38 sb4 03/30 16:08 Order name: EKG - Nurse/Tech; Complete Time: 19:46 sb4 03/30 16:08 Order name: IV Saline Lock; Complete Time: 17:38 sb4 03/30 16:08 Order name: Labs collected and sent; Complete Time: 17:38 sb4 03/30 16:08 Order name: O2 Per Protocol; Complete Time: 17:38 sb4 03/30 16:08 Order name: O2 Sat Monitoring; Complete Time: 17:38 sb4 03/30 17:39 Order name: Labs - recollect needed: recollect green top; Complete Time: 18:13 bd 03/30 18:25 Order name: Labs - recollect needed: recollect green top; Complete Time: 18:50 bd EC:32 Rate is 123 beats/min. Rhythm is irregularly irregular, A fib. QRS interval is normal sb4 at 105 msec. QT interval is normal at 319 msec. No Q waves. No ST changes noted. Clinical impression: Atrial Fibrillation. Interpreted by me. Reviewed by me. Administered Medications: 19:11 Drug: midodrine 10 mg PO once Route: PO; 03/31 00:16 Follow up: Response: No adverse reaction formerly [facility] 03/30 19:11 Drug: Digoxin IVP 0.5 mg IVP once Route: IVP; Site: right antecubital; 03/31 00:15 Follow up: Response: No adverse reaction formerly [facility] 03/30 19:11 Drug: NS 0.9% IV 250 ml IV at bolus once; to be given as a bolus over 30 minutes Route: zm IV; Rate: bolus; Site: right antecubital; 03/31 00:15 Follow up: Response: No adverse reaction; IV Status: Completed infusion formerly [facility] 03/30 19:42 Drug: Albumin IVPB 25 grams 100 ml IVPB once; (Note: Albumin 25% concentration) Volume: mf3 100 ml; Route: IVPB; Site: right antecubital; 03/31 00:15 Follow up: Response: No adverse reaction; IV Status: Completed infusion formerly [facility] 03/30 20:52 Drug: Rocephin IV 1 grams IV at calculated rate once; Given slow IV push per pharmacy mf3 instructions Route: IV; Rate: calculated rate; Site: right antecubital; 03/31 00:15 Follow up: Response: No adverse reaction; IV Status: Completed infusion 3 00:15 Follow up: Response: No adverse reaction; IV Status: Completed infusion formerly [facility] 03/30 20:52 Drug: NS 0.9% IV 500 ml 500 ml IV at 1 bolus once; to be given as a bolus over 30 mf3 minutes Volume: 500 ml; Route: IV; Rate: 1 bolus; Site: right antecubital; 03/31 00:14 Follow up: Response: No adverse reaction; IV Status: Completed infusion formerly [facility] 03/30 23:45 CANCELLED (Duplicate Order): [id number] mg 100 ml IVPB once over 10 mins; (mix in rn D5W) 23:45 CANCELLED (Duplicate Order): mg, d5w iv 500 ml IVPB at 1 mg/min rn continuous; for 6 hrs, then change to 0.5 mg/min Disposition: 23:40 Co-signature as Attending Physician, Tristan Roger MD I agree with the assessment and rn plan of care. I reviewed the patient's care provided by Advanced Practice Provider \T\ agree w/ the diagnosis \T\ care plan. I personally saw the pt \T\ performed a substantive portion of the visit, incldng all aspects of the (History/Exam/Medical Decision Making). PA/COMPUTER PROGRAMMING MANAGER's history reviewed, patient interviewed, and examined. HPI: Patient is awake, alert, mild tachypnea and tachycardia. My personal exam of patient reveals: Tachycardic, irregular I agree with assessment and care plan and confirm the diagnosis (es) above. Disposition Summary: 03/30/25 20:39 Transfer Ordered Notes: Transfer Location: [facility](03/30/25 20:39) rn Reason: Higher level of care(03/30/25 20:39) rn Condition: Stable(03/30/25 20:39) rn Problem: new(03/30/25 20:39) rn Symptoms: have improved(03/30/25 20:39) rn Accepting Physician: (03/31/25 00:17) mf3 Diagnosis - Persistent atrial fibrillation - with RVR rn - Hypotension, unspecified rn Forms: - Medication Reconciliation Form rn - SBAR form rnfa time excluding procedures: 19:35 Critical care time: Bedside Care: 10 minutes, Consultation: 25 minutes. Total time: 35 sb4 minutes 23:40 Critical care time: Bedside Care: 30 minutes, Consultation: 5 minutes. Total time: 35 rn minutes Signatures: Dispatcher [employer] EDMS Malena Wu Roman, MD MD rn Martinez, Zaina RN Anabel Mancilla PA-C PA-C sb4 Brandy Hou RN RN km Purvi Hightower RN RN mf3 Corrections: (The following items were deleted from the chart) 19:45 18:43 Patient presents with complaints of dizziness and low blood pressure. He does sb4 have chronic hypotension and takes and is on 6 L at baseline, which is what his requirement is at this time. sb4 20:38 19:34 DC sb4 rn 20:38 19:34 [facility] sb4 rn 20:38 19:34 Higher level of care sb4 rn 20:38 19:34 Fair sb4 rn 20:38 19:34 new sb4 rn 20: 19:34 are unchanged sb4 rn 20:38 19:34 Atrial fibrillation with rapid ventricular response sb4 rn 20:38 19:34 Hypotension sb4 rn 20:38 19:34 Pneumonia sb4 rn 23:45 23:40 amiodarone IVPB 150 mg 100 ml IVPB once over 10 mins; (mix in D5W) ordered. rn rn 23:45 23:40 amiodarone IVPB 900 mg, D5W IV 500 ml IVPB at 1 mg/min continuous; for 6 hrs, rn then change to 0.5 mg/min ordered. rn 03/31 00:17 03/30 20:39 Dr. joshi mf3
--- NOTE | 2025-03-30 19:35 | ER ---
Nurse's Notes [facility] Name: Maurice Cid Jr Age: 65 yrs Sex: Male : 1960 Arrival Date: 03/30/2025 Time: 15:51 Bed 5 Private MD: Diagnosis: Persistent atrial fibrillation-with RVR;Hypotension, unspecified Presentation: 03/30 15:56 Chief complaint: EMS states: dizziness at the clinic earlier today, got home, home km10 health nurse took his BP at home and had 80's/50's. EMS arrival to scene and took BP 110/70. pt on 6 L oxygen NC (baseline oxygen needs at home). patient currently stating he wants to go to his [facility] hospital. Ebola Screen: No symptoms or risks identified at this time. Initial Sepsis Screen: Does the patient meet any 2 criteria? No. Patient's initial sepsis screen is negative. Does the patient have a suspected source of infection? No. Patient's initial sepsis screen is negative. Risk Assessment: Do you want to hurt yourself or someone else? Patient reports no desire to harm self or others. 15:56 Method Of Arrival: EMS: [facility] 10 15:56 Acuity: EV 3 km10 16:00 Coronavirus screen: At this time, the client does not indicate any symptoms associated km10 with coronavirus-19. Onset of symptoms was March 30, 2025. Triage Assessment: 16:09 General: Appears in no apparent distress. Behavior is calm, cooperative. 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 Cardiovascular: Reports low BP MILITARY ANALYST. Respiratory: Reports shortness of breath at baseline, uses 6 L nasal canula, "no increased shortness of breath from baseline". Historical: - Allergies: 16:12 No Known Allergies; km10 - PMHx: 16:12 asbestosis; Atrial fibrillation; Atrial fibrillation; colon cancer; Congestive heart km10 failure; COPD; diabetes mellitus; Hypertension; - PSHx: 16:12 Ankle; Colon; knee; km10 - Immunization history:: Adult Immunizations up to date. - Infectious Disease History:: Denies. - Social history:: Smoking status: Patient/guardian denies using tobacco, the patient reports quitting approximately 4 years ago. Screenin:30 [facility] ED Fall Risk Assessment (Adult) History of falling in the last 3 months, km10 including since admission No falls in past 3 months (0 pts) Confusion or Disorientation No (0 pts) Intoxicated or Sedated No (0 pts) Impaired Gait Yes (1 pt) Mobility Assist Device Used Yes (1 pt) Altered Elimination No (0 pt) Score/Fall Risk Level 0 - 2 = Low Risk Oriented to surroundings, Maintained a safe environment, Assessed \\T\\ reinforced patient's understanding of fall precautions, Hourly rounding (assess needs \\T\\ fall precautionary measures) done. Abuse screen: Denies threats or abuse. Denies injuries from another. Nutritional screening: No deficits noted. Tuberculosis screening: No symptoms or risk factors identified. Assessment: 16:12 Reassessment: see triage. km10 17:30 Reassessment: Patient appears in no apparent distress at this time. No changes from km10 previously documented assessment. Patient and/or family updated on plan of care and expected duration. Pain level reassessed. 18:30 Reassessment: Patient appears in no apparent distress at this time. No changes from km10 previously documented assessment. Patient and/or family updated on plan of care and expected duration. Pain level reassessed. 19:42 General: Appears in no apparent distress. comfortable, Behavior is calm, cooperative, mf3 appropriate for age. Pain: Denies pain. Neuro: Level of Consciousness is awake, alert, obeys commands, Oriented to. Cardiovascular: Capillary refill < 3 seconds. Respiratory: Airway is patent. GI: Derm: Skin is intact, is healthy with good turgor, Skin is pink, warm \\T\\ dry. 20:00 Reassessment: Patient and/or family updated on plan of care and expected duration. Pain mf3 level reassessed. Patient is alert, oriented x 3, equal unlabored respirations, skin warm/dry/pink. Patient denies pain at this time. 21:00 Reassessment: Patient and/or family updated on plan of care and expected duration. Pain mf3 level reassessed. Patient is alert, oriented x 3, equal unlabored respirations, skin warm/dry/pink. 22:00 Reassessment: No changes from previously documented assessment. Patient and/or family mf3 updated on plan of care and expected duration. Pain level reassessed. Patient is alert, oriented x 3, equal unlabored respirations, skin warm/dry/pink. 23:18 Reassessment: No changes from previously documented assessment. Patient and/or family mf3 updated on plan of care and expected duration. Pain level reassessed. Patient is alert, oriented x 3, equal unlabored respirations, skin warm/dry/pink. 03/31 00:13 Reassessment: No changes from previously documented assessment. Patient and/or family mf3 updated on plan of care and expected duration. Pain level reassessed. Patient is alert, oriented x 3, equal unlabored respirations, skin warm/dry/pink. Vital Signs: 03/30 16:08 BP 90 / 58; Pulse 119; Resp 22; Temp 97.7(O); Pulse Ox 99% on 6 lpm NC; km10 16:45 BP 92 / 51; Pulse 121; Resp 24; Pulse Ox 99% on 6 lpm NC; km10 17:30 BP 107 / 65; Pulse 110; Pulse Ox 99% on 6 lpm NC; km10 19:43 BP 102 / 64; Pulse 106; Resp 18; Pulse Ox 100% on 6 lpm NC; 3 21:00 BP 111 / 66; Pulse 89; Resp 18; Pulse Ox 100% on 6 lpm NC; [facility] 22:00 BP 101 / 70; Pulse 90; Resp 17; Pulse Ox 100% on 6 lpm NC; [facility] 23:00 BP 103 / 76; Pulse 82; Resp 16; Pulse Ox 98% on R/A; [facility] 03/31 00:14 BP 113 / 60; Pulse 88; Resp 18; Pulse Ox 100% on R/A; [facility] Vitals: 03/30 19:43 Cardiac Rhythm Assessment Atrial fibrillation W/rapid ventricular response. [facility] 23:00 Cardiac Rhythm Assessment Atrial fibrillation W/PVC's. [facility] Roman Coma Score: 16:45 Eye Response: spontaneous(4). Motor Response: obeys commands(6). Verbal Response: km10 oriented(5). Total: 15. 17:30 Eye Response: spontaneous(4). Motor Response: obeys commands(6). Verbal Response: km10 oriented(5). Total: 15. 19:42 Eye Response: spontaneous(4). Motor Response: obeys commands(6). Verbal Response: 3 oriented(5). Total: 15. ED Course: 15:55 Patient arrived in ED. cm10 15:57 Anabel Lock PA-C [facility]. sb4 15:57 Zechariah Talamantes MD is Attending Physician. sb4 15:58 Triage completed. km10 16:08 Brandy Hou, RN is Primary Nurse. km10 16:11 Arm band placed on right wrist. km10 16:13 Patient has correct armband on for positive identification. Bed in low position. Side km10 rails up X2. Provided Education on: plan of care. Client placed on continuous cardiac and pulse oximetry monitoring. NIBP monitoring applied. furniture repairer on. Door closed. Noise minimized. Warm blanket given. Pillow given. 17:24 XRAY Chest (1 view) In Process Unspecified. EDMS 17:38 Troponin HS Sent. km10 17:38 PT-INR Sent. km10 17:38 NT PRO-BNP Sent. km10 17:38 Magnesium Sent. km10 17:38 LFT's Sent. km10 17:38 Basic Metabolic Panel Sent. km10 17:39 Lactate w/ 2H reflex if indic. Sent. km10 17:39 Blood Culture Adult (2) Sent. km10 18:35 Assisted with urinal. km10 18:45 No provider procedures requiring assistance completed. km10 19:38 initiated transfer with kerry Conrad at the NH. kmf 20:01 Attending Physician role handed off by Zechariah Talamantes MD rn 20:01 Tristan Roger MD is Attending Physician. rn 23:30 pt was accepted to the NH by [facility] \\T\\[id number]. Admin approval \\T\\ Anamaria Bray f \\T\\[id number]. [facility] to transfer pt. 03/31 00:16 Patient transferred, IV remains in place. intact, bleeding controlled, No mf3 redness/swelling at site. Pressure dressing applied. Administered Medications: 03/30 19:11 Drug: midodrine 10 mg PO once Route: PO; zm 03/31 00:16 Follow up: Response: No adverse reaction mf3 03/30 19:11 Drug: Digoxin IVP 0.5 mg IVP once Route: IVP; Site: right antecubital; zm 03/31 00:15 Follow up: Response: No adverse reaction mf3 03/30 19:11 Drug: NS 0.9% IV 250 ml IV at bolus once; to be given as a bolus over 30 minutes Route: zm IV; Rate: bolus; Site: right antecubital; 03/31 00:15 Follow up: Response: No adverse reaction; IV Status: Completed infusion [facility] 03/30 19:42 Drug: Albumin IVPB 25 grams 100 ml IVPB once; (Note: Albumin 25% concentration) Volume: mf3 100 ml; Route: IVPB; Site: right antecubital; 03/31 00:15 Follow up: Response: No adverse reaction; IV Status: Completed infusion [facility] 03/30 20:52 Drug: Rocephin IV 1 grams IV at calculated rate once; Given slow IV push per pharmacy [facility] instructions Route: IV; Rate: calculated rate; Site: right antecubital; 03/31 00:15 Follow up: Response: No adverse reaction; IV Status: Completed infusion [facility] 00:15 Follow up: Response: No adverse reaction; IV Status: Completed infusion [facility] 03/30 20:52 Drug: NS 0.9% IV 500 ml 500 ml IV at 1 bolus once; to be given as a bolus over 30 mf3 minutes Volume: 500 ml; Route: IV; Rate: 1 bolus; Site: right antecubital; 03/31 00:14 Follow up: Response: No adverse reaction; IV Status: Completed infusion [facility] 03/30 23:45 CANCELLED (Duplicate Order): [id number] mg 100 ml IVPB once over 10 mins; (mix in rn D5W) 23:45 CANCELLED (Duplicate Order): [id number] mg, d5w iv 500 ml IVPB at 1 mg/min rn continuous; for 6 hrs, then change to 0.5 mg/min Medication: 18:30 VIS not applicable for this client. km10 Outcome: 19:34 ER care complete, transfer ordered by sb4 20:39 ER care complete, transfer ordered by rn 03/31 00:16 [facility]red by ground [facility] to [facility] Condition: stable Discharge instructions given to patient, family, Instructed on the need for transfer, Demonstrated understanding of instructions, 00:17 Patient left the ED. 3 Signatures: Dispatcher [employer] EDMS Tristan Roger MD MD rn Martinez, Zaina, RN RN Anabel Alford PALupillo PALupillo sb4 Janet Gonzalez, RN RN 10 Jewels Saba [facility] Brandy Hou RN RN 10 Purvi Hightower RN RN 3 Corrections: (The following items were deleted from the chart) 03/30 22:48 19:43 BP 102 / 64; Pulse 106bpm; Resp 18bpm; Pulse Ox 100% RA; mf3 3 03/31 02:42 02:30 initiated transfer with the Anamaria at the NH. [facility]
[2025-03-30] MEDS ORDERED: NA CHLORIDE 0.9% 500 ML ONE (20:42)
[2025-03-30] MEDS ORDERED: CEFTRIAXONE 1000 MG/VIAL ONE (20:49)
[2025-03-31 02:56] VITALS: TEMP 97.7
[2025-03-31 03:05] VITALS: BP 113/60; O2SAT 100
== END 2025-03-31 00:17 ==
LOC: ER 15:51
DX: I48.19 Other persistent atrial fibrillation (principal); I95.9 Hypotension, unspecified; I10 Essential (primary) hypertension; I50.9 Heart failure, unspecified; J44.9 Chronic obstructive pulmonary disease, unspecified
CPT/HCPCS: 96365; 96361; 93005; 87040 ×2; 85025; 80048; 36415; 83735; 85610; 80076; 83605; 84484; 83880; 71045; 96375; 99285; 96366; J1160; P9047; J7050; J7040; J0696